=== PATIENT | female | born 1980 | race Caucasian/White ===

== ENCOUNTER 2020-06-21 07:22 | Outpatient (CLI) | payer BC, SELFPAY ==
--- NOTE | 2020-06-21 07:34 | NM_ITS ---
WS: [id number] NUCLEAR MEDICINE HIDA SCAN CLINICAL INFORMATION: RUQ ABDOMINAL PAIN TECHNIQUE: Following intravenous administration of 7.8 mCi of technetium 99m mebrofenin, images of th e abdomen were obtained over the course of 60 minutes. Next, gallbladder ejection fraction was determ ined by obtaining preprandial and one-hour postprandial images of the gallbladder following oral jose stion of Ensure. COMPARISON: Ultrasound gallbladder April 12, 2020 FINDINGS: Normal hepatic uptake at 5 minutes. Gallbladder is visualized by 10 minutes. Normal common bile duct. No evidence of acute cholecystitis. Common bile duct visualized by 10 minutes. Normal small bowel ac tivity. No evidence of choledocholithiasis. Gallbladder ejection fraction 72% within normal limits. No evidence of chronic cholecystitis. NM/NM hepatobiliary w phar* [id number] IMPRESSION: 1. No evidence of acute or chronic cholecystitis. 2. Gallbladder ejection fraction 72% within normal limits.
== END 2020-06-21 07:23 | disposition home or self-care (01) ==
LOC: NM 07:22
PROVIDERS: PCP Family Medicine; Visit Provider Family Medicine
DX: R10.11 Right upper quadrant pain (principal)
CPT/HCPCS: 78227; A9537

== ENCOUNTER 2021-01-23 08:41 | Outpatient (CLI) | payer BC, SELFPAY ==
--- NOTE | 2021-01-23 08:52 | MM_ITS ---
WS: [id number] BILATERAL DIGITAL DIAGNOSTIC MAMMOGRAM MAMMOGRAPHY WITH CAD CLINICAL INFORMATION: RIGHT BREAST LUMP COMPARISON: TECHNIQUE: Bilateral CC, MLO, and ML views. FINDINGS: Scattered fibroglandular densities bilaterally. Marker right breast. No underlying mammographic abnor malities. Ultrasound is pending. Left breast is unremarkable and unchanged. ULTRASOUND BREAST RIGHT TECHNIQUE: Ultrasound right breast focused area of concern. CLINICAL INFORMATION: RIGHT BREAST LUMP COMPARISON: None. FINDINGS: Ultrasound right breast at the 1:00 position patient directed area. No evidence of underlying mass or lesion. Normal underlying parenchymal tissue. No suspicious findings. No lesions to target for biops y. MM/[place] [id number] IMPRESSION: BI-RADS: 2-Benign FOLLOW UP: 1 Year Follow-up Recommend return to annual screening mammography.
== END 2021-01-23 08:42 | disposition home or self-care (01) ==
LOC: RADSHAW 08:44
PROVIDERS: PCP Family Medicine; Visit Provider Family Medicine
DX: N63.12 Unspecified lump in the right breast, upper inner quadrant (principal)
CPT/HCPCS: 76642; 77066

== ENCOUNTER 2021-05-06 15:33 | Emergency (ER) | payer BC, SELFPAY ==
[2021-05-06 16:13] VITALS: BMI 36.4
--- NOTE | 2021-05-06 16:16 | ED_ITS ---
Documented by User: Linda Villarreal 05/06/21 17:08 HPI - Extremity Problem General: Chief complaint: Extremity Injury, Lower Stated complaint: R. KNEE INJURY Time Seen by Provider: 05/06/21 16:02 Source: patient Mode of arrival: ambulatory Limitations: no limitations History of Present Illness: HPI Narrative: right knee pain pt states s kid fell on her and she heard a pop. pt states she can not walk with out pain. pt denies any injury or trauma Associated symptoms: Deny chest pain, fever(s) or rash Review of Systems Const: Denies: fever(s), chills, body aches, change in appetite, change in weight, fatigue, malaise or diaphoresis Eyes: Denies: change in vision, blurry vision, blind spots, photophobia, eye discomfort, eye discharge, eye redness, floaters or seeing flashes ENMT: Denies: throat pain, uvular edema, enlarged tonsils, odynophagia, hoarseness, mouth pain, swelling of lips/tongue, oral sores, bleeding gums, dental pain, dry mouth, ear or mastoid pain, ear discharge, change in hearing, tinnitus, disequilibrium, nasal discharge, nasal congestion, post nasal drip or sinus pain Card: Denies: chest pain, palpitations, irregular heart rhythm, edema, swelling of feet/ankles, lightheadedness, syncope, pre-syncope, dyspnea on exertion, orthopnea, leg pain with exertion or acrocyanosis Resp: Denies: dyspnea, productive cough, non-productive cough, wheezing, stridor, pain on inspiration, change in phlegm color, hemoptysis or chest congestion GI: Denies: abdominal pain, nausea, vomiting, hematemesis, dysphagia, diarrhea, constipation, GI cramping, change in bowel habits or rectal pain : Denies: flank pain, difficulty voiding, dysuria, urinary frequency, urinary urgency, urinary hesitancy or hematuria Musc: Reports: extremity pain; Denies: neck pain, back pain, extremity swelling, joint pain, joint swelling, joint redness, joint warmth or deformity Skin/Breast: Denies: rash, pruritus, erythema, sores, new lesions, changes in skin color or dry skin Neuro: Denies: headache(s), numbness in extremities, weakness in extremities, sensory changes, lack of coordination, difficulty walking, frequent falls, dizziness, vertigo, confusion, behavioral changes, Slurred speech present, difficulty communicating thoughts or seizure-like activity Psych: Denies: anxiety, depression, suicidal ideation or homicidal ideation Endo: Denies: polyuria, polydipsia, tired all the time, cold intolerance, excessive sweating, flushing, hot flashes or heat intolerance Alec/Lymph: Denies: easy bruising, easy bleeding, petechiae, purpura, enlarged lymph nodes or tender lymph nodes All/Imm: Denies: urticaria, throat swelling, tongue swelling, facial swelling, acute wheezing or itchy eyes Physical Exam Const: COMMON NORMALS: no acute distress, average body habitus, patient oriented x3, no limitations, healthy appearing, alert and well nourished HENMT: THROAT: no uvular edema : COMMON NORMALS: Yes no CVA tenderness BLADDER/KIDNEY EXAM: Yes no CVA tenderness Back/Pelvis: COMMON NORMALS: no CVA tenderness, thoracic and lumbar spine normal to inspection, no thoracic nor lumbar tenderness, thoraco-lumbar ROM normal and straight leg raise negative bilaterally Extremity: RIGHT LOWER EXTREMITY: Yes knee joint Neuro: COMMON NORMALS: patient oriented x3 SENSORIUM/ORIENTATION: Yes alert Course Vital Signs: Vital signs: Vital Signs Temperature 98.4 F 05/06/21 16:27 Pulse Rate 98 05/06/21 16:27 Respiratory Rate 18 05/06/21 16:27 Blood Pressure 140/103 05/06/21 16:27 Pulse Oximetry 96 05/06/21 16:27 MDM - Extremity (Nontraumatic) MDM Narrative: Medical decision making narrative: care transition to HILARIO Silva Discharge Plan Discharge Patient Disposition: Home Clinical Impression: Knee pain, right Qualifiers: Chronicity: acute Qualified Code(s): M25.561 - Pain in right knee Condition: Stable Prescriptions: New ibuprofen 800 mg tablet 800 mg PO Q8H PRN (Reason: pain) Qty: 30 RF: 0 Discharge Orders: Discharge ED (Routine); Ordered 05/06/21 Ordered By: Thom Ashby Referrals: Rob Franco MD [Primary Care Provider] - Discharge Diet: Regular Discharge Activity: Increase activity as tolerated Patient Instructions: Knee Pain (ED) Activity Restrictions/Additional Instructions: Follow-up with medical provider as directed in about 5 to 7 days. Use crutches for the first 2 to 3 days and limit weightbearing then slowly advance as tolerated. Rest ice and elevate right knee. Take medications as prescribed. Return to the ER or your medical provider if condition worsens. Please read and understand discharge instructions. Thank you for choosing [facility] for your healthcare needs today. Please realize this is an emergency room and that we are providing you with a medical screening exam and this may not be complete and all inclusive of all the testing and or work up that you may need to determine your ailment or severity of your illness. It is very important that you follow up as instructed or that you return to the Emergency Department should you have concerns or if your condition changes or worsens in any way. Sign Out Sign Out Data: Patient Sign Out occurred on 05/06/21 at 17:11. Patient's care was discussed, and care was transferred from to HILARIO Silva. Coding Level of Care Code ED Spanish Instructor for Chg Fwd Exam Expanded Problem Focused Documented by User: HILARIO Silva 05/06/21 19:07 HPI - Extremity Problem General: Chief complaint: Extremity Injury, Lower Stated complaint: R. KNEE INJURY Time Seen by Provider: 05/06/21 16:02 Course Vital Signs: Vital signs: Vital Signs Temperature 98.4 F 05/06/21 16:27 Pulse Rate 98 05/06/21 16:27 Respiratory Rate 18 05/06/21 16:27 Blood Pressure 140/103 05/06/21 16:27 Pulse Oximetry 96 05/06/21 16:27 MDM - Extremity (Nontraumatic) MDM Narrative: Medical decision making narrative: Patient is a 40-year-old female who comes to the ED with right knee injury. Exam shows some mild swelling of the right knee but no other acute findings. X-ray of right knee showed no acute fractures or findings. Patient was diagnosed with right knee pain and discharged home with crutches and told to rest ice and elevate right leg for the next couple days. She was discharged home with a prescription for ibuprofen 800 mg. She was told to follow-up with her PCP in the next 5 to 7 days for reevaluation. Return to ED precautions given. Patient understood and agreed with plan. Imaging Data^: Xray Ortho: Attestation: I personally reviewed and interpreted this imaging study as follows: My impression: Right knee x-ray?no acute fractures or findings seen. Discharge Plan Discharge Patient Disposition: Home Clinical Impression: Knee pain, right Qualifiers: Chronicity: acute Qualified Code(s): M25.561 - Pain in right knee Condition: Stable Prescriptions: New ibuprofen 800 mg tablet 800 mg PO Q8H PRN (Reason: pain) Qty: 30 RF: 0 Discharge Orders: Discharge ED (Routine); Ordered 05/06/21 Ordered By: Thom Ashby Referrals: Rob Franco MD [Primary Care Provider] - Discharge Diet: Regular Discharge Activity: Increase activity as tolerated Patient Instructions: Knee Pain (ED) Activity Restrictions/Additional Instructions: Follow-up with medical provider as directed in about 5 to 7 days. Use crutches for the first 2 to 3 days and limit weightbearing then slowly advance as tolerated. Rest ice and elevate right knee. Take medications as prescribed. Return to the ER or your medical provider if condition worsens. Please read and understand discharge instructions. Thank you for choosing [facility] for your healthcare needs today. Please realize this is an emergency room and that we are providing you with a medical screening exam and this may not be complete and all inclusive of all the testing and or work up that you may need to determine your ailment or severity of your illness. It is very important that you follow up as instructed or that you return to the Emergency Department should you have concerns or if your condition changes or worsens in any way. Sign Out Sign Out Data: Patient Sign Out occurred on 05/06/21 at 17:11. Patient's care was discussed, and care was transferred from to HILARIO Silva. Coding Level of Care Code ED Spanish Instructor for Bhanu Fwmatt Exam Expanded Problem Focused
[2021-05-06 16:27] VITALS: BP 140/103; PULSE 98; RESP 18; TEMP 36.9; O2SAT 96
--- NOTE | 2021-05-06 16:37 | XRR_ITS ---
PROCEDURE INFORMATION: Exam: XR Right Knee Exam date and time: 05/06/2021 4:37 PM Age: 40 years old Clinical indication: Injury or trauma; Fall; Blunt trauma; Injury details: Right knee pain PT states s kid fell on her and she heard a pop. TECHNIQUE: Imaging protocol: XR Right knee. Views: 3 views. COMPARISON: US ROR venous duplex LE RT 07/31/2015 1:21 PM FINDINGS: Bones/joints: Normal. Soft tissues: Normal. XR/XR knee RT 3V* [id number] IMPRESSION: Negative for fracture or dislocation
[2021-05-06] MEDS: ketorolac 60 mg/2 mL INJ IM (17:22)
== END 2021-05-06 18:25 | disposition home or self-care (01) ==
PROVIDERS: Emergency Provider Physician Assistant; PCP Family Medicine
DX: M25.561 Pain in right knee (principal)
CPT/HCPCS: 73562; 96372; 99283; E0114; J1885

== ENCOUNTER 2021-05-21 08:13 | Outpatient (CLI) | payer BC, SELFPAY ==
--- NOTE | 2021-05-21 08:45 | MR_ITS ---
WS: [id number] MRI RIGHT KNEE NONCONTRAST TECHNIQUE: Axial PD, coronal PD fat sat, coronal PD, sagittal PD, and sagittal PD fat-sat images obta ined. CLINICAL INFORMATION: R KNEE INJURY WITH SEVERE PAIN COMPARISON: None. FINDINGS: Distal quadriceps and patella tendons are intact. Hypertrophic patella. Small suprapatellar effusion. High-grade tear of the ACL with no normal fibers visualized. Normal PCL. Diffuse soft tissue edema. Edema in Hoffa's fat pad. Complex bucket-handle tear involving the posterior horn lateral meniscus ex tending to the articular surface. Irregularity and compression of the anterior horn lateral meniscus. Meniscal fragment displaced into the intercondylar notch. Chronic thinning of the medial meniscus. N o acute appearing medial meniscal tears. Normal femoral condyles. Small amount of edema in the posterior medial and posterior lateral tibial p lateau. Tiny amount of edema in the anterolateral femoral condyle. Medial collateral ligament appears intact with small amount of edema and fluid along the superficial fibers consistent with grade one injury. Lateral collateral ligament is intact. Mild chondromalacia patella. Medial and lateral patellar retinaculum appear intact. No subchondral ed thomas. MR/MR knee RT wo con* [id number] IMPRESSION: 1. High-grade tear of the ACL with no normal fibers visualized. 2. Complex bucket handle tear involving the posterior horn lateral meniscus wi th compression and irregularity of the anterior meniscus. Flipped meniscal frag ment extending into the intercondylar notch best seen on the coronal imaging. 3. Grade 1 injury MCL. LCL appears intact. 4. Small suprapatellar effusion with soft tissue edema about the knee. 5. Mild chondromalacia patella. 6. Small amount of contusion involving the anterior lateral femoral condyle an d posterior lateral tibial plateau. Outbridge grading: grade II: blister-like swelling/fraying of articular cartila ge extending to surface
== END 2021-05-21 08:14 | disposition home or self-care (01) ==
PROVIDERS: PCP Family Medicine; Visit Provider Family Medicine
DX: S89.91XA Unspecified injury of right lower leg, initial encounter (principal); S80.01XA Contusion of right knee, initial encounter; M22.41 Chondromalacia patellae, right knee; M25.461 Effusion, right knee; R60.0 Localized edema; S83.251A Bucket-handle tear of lateral meniscus, current injury, right knee, initial encounter; S83.271A Complex tear of lateral meniscus, current injury, right knee, initial encounter; S83.511A Sprain of anterior cruciate ligament of right knee, initial encounter; X58.XXXA Exposure to other specified factors, initial encounter
CPT/HCPCS: 73721

== ENCOUNTER 2023-02-27 13:58 | Emergency (ER) | payer BC, SELFPAY ==
[2023-02-27 14:04] VITALS: BP 173/138; PULSE 135; RESP 26; TEMP 36.6; O2SAT 100; BMI 35.1
--- NOTE | 2023-02-27 14:09 | ECG_ITS ---
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 Measurements Intervals Superior Rate: 135 P: 131 TX: 148 QRS: 39 QRSD: 98 T: 8 QT: 283 QTc: 425 Interpretive Statements SINUS TACHYCARDIA ABNORMAL RHYTHM ECG No previous ECG available for comparison Electronically Signed On 02-27-2023 23:03:49 CDT by Chip Webb M.D. [id number] f
--- NOTE | 2023-02-27 14:35 | XR_ITS ---
WS: [id number] Portable AP upright chest, 02/27/2023 Clinical Data: chest pain Comparison: Two-view chest, 12/30/2021 Findings: No nodules, masses or effusions are seen. The heart is normal. The pulmonary vascularity is not increased. No pneumonia or pneumothorax is seen. There are monitor leads on the chest wall. XR/XR chest 1V portable [id number] Impression: Negative chest.
--- NOTE | 2023-02-27 14:54 | W.ED.CHESTPA ---
HPI - Chest Pain General: Chief Complaint: Chest Pain Stated Complaint: Chest Pain, High BP, Arm numbness Time Seen by Provider: 02/27/23 14:35 History of Present Illness: 42-year-old female presents emergency department chief complaint of ongoing chest pain midsternal region radiation to the back and to the left shoulder started this prior to arrival patient reports having a prior history of some past but does not recall any known cardiac history reports she recent saw her doctor in the office in which she has been dealing with high blood pressure which her blood pressure was found to be elevated prior to arrival. Patient reports she was started on a new medication for blood pressure her reports not helping her blood pressure reports current blood pressures at home was 150s over 80s patient does not endorse any recent palpitations or headache. Patient reports she did take her blood pressure medication prescribed patient reports she has not tried to take anything for her chest pain reports his pressure. Patient also reports a feeling of nauseousness and wanting to vomit with generalized epigastric abdominal pain with no other associate symptoms. Patient does endorse having an increased amount of stress in her life recently does not endorse any additional caffeine or nicotine usage. Patient also does not report any known history of recent dietary changes or any other associated symptoms. Associated symptoms: Reports abdominal pain; Deny dyspnea, fever(s), nausea or vomiting Review of Systems General: Reports: 10 or more systems reviewed and unremarkable except in HPI and below Const: Denies: fever(s), chills, fatigue or malaise Eyes: Denies: change in vision or blurry vision Card: Reports: chest pain Resp: Denies: dyspnea or productive cough GI: Reports: abdominal pain; Denies: nausea or vomiting : Denies: flank pain Musc: Denies: extremity pain or extremity swelling Skin/Breast: Denies: rash or pruritus Neuro: Denies: headache(s) Psych: Denies: anxiety or depression Alec/Lymph: Denies: easy bleeding All/Imm: Denies: urticaria, throat swelling or facial swelling Physical Exam Narrative: EXAM NARRATIVE: Patient appears uncomfortable exam however appears nontoxic appears in no obvious acute distress Const: COMMON NORMALS: no acute distress, patient oriented x3 and healthy appearing HENMT: COMMON NORMALS: normocephalic and atraumatic HEAD & SCALP: normocephalic and atraumatic Eye: COMMON NORMALS: Equal, round and reactive pupils present and EOMs intact bilaterally PUPIL: Yes Equal, round and reactive pupils present Neck/C-Spine: COMMON NORMALS: full ROM, supple and no JVD Lymph: LYMPHATIC: no lymphadenopathy noted Chest: COMMONS NORMALS: normal inspection of the chest and normal palpation of entire chest wall Resp: COMMON NORMALS: normal respiratory effort, No retractions and clear to auscultation bilaterally EFFORT & INSPECTION: Yes able to speak in complete sentences and Yes symmetric chest movement AUSCULTATION: clear to auscultation bilaterally OTHER: Reproducible pain noted to the midsternal region no obvious step-offs crepitus or ecchymosis noted equal breath sounds appreciated bilaterally with no obvious murmurs or bruits appreciated Cardio: COMMON NORMALS: no JVD, regular rate and regular rhythm RATE: regular rate RHYTHM: regular rhythm GI: COMMON NORMALS: Normal to inspection, nondistended, normoactive bowel sounds present, Soft to palpation and non-tender INSPECTION: Yes normal to inspection PALPATION: Yes Soft to palpation : COMMON NORMALS: Yes no CVA tenderness BLADDER/KIDNEY EXAM: Yes no CVA tenderness Back/Pelvis: COMMON NORMALS: no CVA tenderness Extremity: COMMON NORMALS: normal to inspection and full ROM Neuro: COMMON NORMALS: patient oriented x3, CN's II-XII intact bilaterally, moves all extremities and no focal motor deficits Psych: COMMON NORMALS: mental status grossly normal, Normal thought process present, cooperative and normal affect THOUGHT PROCESS: Normal thought process present Skin: COMMON NORMALS: no rashes or lesions noted GENERAL SKIN EXAM: no rashes or lesions noted Course Vital Signs: Vital signs: Vital Signs Temperature 97.8 F 02/27/23 14:04 Pulse Rate 110 H 02/27/23 18:45 Respiratory Rate 16 02/27/23 18:45 Blood Pressure 185/107 02/27/23 18:45 Pulse Oximetry 97 02/27/23 18:45 Oxygen Delivery Me thod Room Air 02/27/23 18:45 MDM - Chest Pain Medical Decision Making Due to the patient's symptoms and condition IV established basic lab work imaging will be obtained we will continue to follow. Patient's lab work and imaging came back reassuring she was found to be sinus tachycardia throughout her time emergency department -2-hour troponin came back patient's chest x-ray and CTA did not reveal any PE patient was found of a small right-sided pulmonary nodule. Patient's chest pain was resolved upon reevaluation 1939 patient will be discharged home on some metoprolol as well as additional medications for her high blood pressure advised that she further follow-up with her primary care doctor in 2 to 3 days which patient was advised to return the interim if any of her symptoms persist or worse. Lab Data 02/27/23 15:26 02/27/23 17:05 Radiology Impressions Chest X-Ray 02/27/23 14:35 Impression: Negative chest. Chest CTA 02/27/23 16:30 IMPRESSION: 1. No acute findings. 2. 3 mm right pulmonary nodule. For patients at low risk (minimal or absent history of smoking and of other known risk factors), no routine follow-up is indicated. For patients at high risk (history of smoking or of other known risk factors), consider optional CT Chest at 12 months. (Reference: Julia) References: Julia Carrasco, et al. Guidelines for Management of Incidental Pulmonary Nodules Detected on CT Images: From the Fleischner Society 2017. Radiology. 2017;284(1):228-243. Laboratory Results WBC 10.0 10^3/uL (4.0-10.0) 02/27/23 15: RBC 4.63 10^6/uL (4.1-5.3) 02/27/23 15: Hgb 13.8 g/dL (11.5-15.3) 02/27/23 15: Hct 42.0 % (37.0-47.0) 02/27/23 15: MCV 90.7 fl (81-99) 02/27/23 15: MCH 29.8 pg (28.0-34.0) 02/27/23 15: MCHC 32.9 g/dL (30.0-36.0) 02/27/23 15: RDW 12.4 % (12.1-15.1) 02/27/23 15: Plt Count 378 10^3/cmm (130-400) 02/27/23 15: MPV 9.1 fL (7.4-10.4) 02/27/23 15: Neut % (Auto) 69.0 % 02/27/23 15:26 Lymph % (Auto) 24.1 % 02/27/23 15:26 [place] % (Auto) 5.5 % 02/27/23 15: Eos % (Auto) 0.8 % 02/27/23 15: Baso % (Auto) 0.3 % 02/27/23 15: Neut # (Auto) 6.91 10^3/uL (1.8-7.7) 02/27/23 15: Lymph # (Auto) 2.4 10^3/uL (0.8-4.8) 02/27/23 15: [place] # (Auto) 0.6 10^3/uL (0.2-0.9) 02/27/23 15: Eos # (Auto) 0.1 10^3/uL (0.0-0.8) 02/27/23: Baso # (Auto) 0.0 10^3/uL (0.0-0.1) 02/27/23 15: Nucleated RBC % (auto) 0 % 02/27/23 15: Nucleated RBCs # 0.0 /100WBC 02/27/23 15:26 Sodium 141 mmol/L (136-145) 02/27/23 17:05 Potassium 3.8 mmol/L (3.5-5.1) 02/27/23 17:05 Chloride 104 mmol/L (98-107) 02/27/23 17:05 Carbon Dioxide 21 mmol/L (22-29) L 02/27/23 17:05 Anion Gap 19.8 (5-19) H 02/27/23 17:05 BUN 15 mg/dL (6-20) 02/27/23 17:05 Creatinine 0.7 mg/dL (0.5-0.9) 02/27/23 17:05 GFR Calculation 92.7 mL/min (90-130) 02/27/23 17:05 Glucose 100 mg/dL (65-115) 02/27/23 17:05 Calculated Osmolality 293 mOsm/kg (285-295) 02/27/23 17:05 Calcium 8.7 mg/dL (8.5-10.5) 02/27/23 17:05 Total Bilirubin 0.3 mg/dL (0.15-1.2) 02/27/23 17:05 AST 18 U/L (0-32) 02/27/23 17:05 ALT 32 U/L (0-33) 02/27/23 17:05 Alkaline Phosphatase 96 U/L (35-105) 02/27/23 17:05 Troponin T Baseline 6 ng/L (0-10) 02/27/23 15:26 Troponin T 120 Minute 6.00 ng/L (0-10) 02/27/23 17:05 Delta Troponin T 0 ABS# (0-10) 02/27/23 17:05 NT-Pro-B Natriuret Pep 36 pg/mL (0-125) 02/27/23 15:26 Total Protein 6.8 g/dL (6.6-8.7) 02/27/23 17:05 Albumin 4.2 g/dL (3.5-5.2) 02/27/23 17:05 Globulin 2.6 g/dL (1.3-4.6) 02/27/23 17:05 Lipase 17 U/L (13-60) 02/27/23 15:26 Urine Color Light yellow (Yellow) 02/27/23 16:21 Urine Appearance Clear (CLEAR) 02/27/23 16:21 Urine pH 7 (5-7) 02/27/23 16:21 Ur Specific [place] 1.010 (1.005-1.030) 02/27/23 16:21 Urine Protein Neg (Negative) 02/27/23 16:21 Urine Glucose (UA) Norm (Normal) 02/27/23 16:21 Urine Ketones Negative (Negative) 02/27/23 16:21 Urine Blood Neg (Negative) 02/27/23 16:21 Urine Nitrate Negative (Negative) 02/27/23 16:21 Urine Bilirubin Neg (Negative) 02/27/23 16:21 Urine Urobilinogen Neg mg/dL (Negative) 02/27/23 16:21 Ur Leukocyte Esterase Negative (Negative) 02/27/23 16:21 Urine Opiates Screen Negative ng/mL (Negative) 02/27/23 16:21 Ur Barbiturates Screen Negative ng/mL (Negative) 02/27/23 16:21 Ur Phencyclidine Scrn Negative ng/mL (Negative) 02/27/23 16:21 Ur Amphetamines Screen Negative ng/mL (Negative) 02/27/23 16:21 U Benzodiazepines Scrn Negative ng/mL (Negative) 02/27/23 16:21 Urine Cocaine Screen Negative ng/mL (Negative) 02/27/23 16:21 U Marijuana (THC) Screen Negative ng/mL (Negative) 02/27/23 16:21 Discharge Plan Discharge Patient Disposition: Home Clinical Impression: Sinus tachycardia, Chest pain, Hypertension Condition: Stable Prescriptions: New Toprol XL 100 mg tablet extended release 24 hr 100 mg PO BID Qty: 20 0RF clonidine HCl 0.1 mg tablet 0.1 mg PO Q6H PRN (Reason: hypertensive emergency) Qty: 14 0RF No Action venlafaxine 150 mg capsule,extended release 24hr 150 mg PO QAM valsartan 80 mg tablet 80 mg PO QAM lithium carbonate 300 mg capsule 300 mg PO BID PRN (Reason: unknown) pantoprazole 40 mg tablet,delayed release (DR/EC) 40 mg PO BID metoprolol tartrate 50 mg tablet 50 mg PO BID Rx Instructions: (not started as of 02/25/25) (pt states replaces valsartan) Discharge Orders: Discharge ED (Routine); Ordered 02/27/23 Ordered By: Massimo Vazquez Referrals: Rob Franco MD [Primary Care Provider] - 1-3 days Discharge Diet: Cardiac and Low Salt Discharge Activity: Increase activity as tolerated Patient Instructions: Hypertension (ED), Tachycardia (ED) Activity Restrictions/Additional Instructions: Please further follow-up your primary care doctor in 2 to 3 days please take your medications as prescribed please discontinue your metoprolol tartrate 50 mg tablets to be taken now 100 mg tablets twice daily. Please return the interim if any of your symptoms persist or worse. Coding Level of Care Code ED Body Trimmer for Bhanu Keyes
--- NOTE | 2023-02-27 14:58 | PC.PHAR ---
pt states she takes care of her own medications-pt states she hasnt started metoprolol tartrate 50mg bid (filled 02/25/23 30d/s) as of 02/25/25- pt states the metoprolol tartrate replaces valsartan but states she took the valsartan today-pt states she only takes lithium carbonate 300mg bid prn ext med history shows last filled 01/20/23 30d/s 300mg bid-notes are made in the pharmacy comments
[2023-02-27 15:05] VITALS: BP 155/91; PULSE 116; RESP 15; O2SAT 99
[2023-02-27] MEDS: ondansetron 2 mg/ML SDV 2 mL 4 MG IVP (15:19)
[2023-02-27] MEDS: pantoprazole 40 mg SDV IVP (15:19)
[2023-02-27] MEDS: aspirin 81 mg Chew Tablet 324 MG PO (15:20)
[2023-02-27] MEDS: sodium chloride 0.9% 1,000 ML 999 ML IV (15:20)
[2023-02-27 15:22] VITALS: BP 155/91; PULSE 112; RESP 14; O2SAT 96
[2023-02-27 15:37] LABS: Basophils % 0.3 %; Eosinophils # 0.1 10^3/uL (0.0-0.8); Eosinophils % 0.8 %; Hemoglobin 13.8 g/dL (11.5-15.3); Lymphocytes # 2.4 10^3/uL (0.8-4.8); Lymphocytes % 24.1 %; Mean Corpuscular HGB Conc 32.9 g/dL (30.0-36.0); Mean Corpuscular Hemoglobin 29.8 pg (28.0-34.0); Mean Corpuscular Volume 90.7 fl (81-99); Mean Platelet Volume 9.1 fL (7.4-10.4); Monocytes # 0.6 10^3/uL (0.2-0.9); Monocytes % 5.5 %; Neutrophils # 6.91 10^3/uL (1.8-7.7); Nucleated Red Blood Cells % 0 %; Platelet Count 378 10^3/cmm (130-400); Red Blood Count 4.63 10^6/uL (4.1-5.3); Red Cell Distribution Width 12.4 % (12.1-15.1)
[2023-02-27 15:58] LABS: Troponin(5th) Baseline 6 ng/L (0-10)
[2023-02-27 16:25] LABS: Lipase 17 U/L (13-60); NT Pro B Type Natriuretic Pept 36 pg/mL (0-125)
--- NOTE | 2023-02-27 16:30 | CTR_ITS ---
PROCEDURE INFORMATION: Exam: CTA Chest With Contrast Exam date and time: 02/27/2023 6:01 PM Age: 42 years old Clinical indication: Chest wall pain; Additional info: Pleuritic chest pain TECHNIQUE: Imaging protocol: Computed tomographic angiography of the chest with contrast. 3D rendering (Not supervised by radiologist): MIP and/or 3D reconstructed images were created by the technologist. Radiation optimization: All CT scans at this facility use at least one of these dose optimization techniques: automated exposure control; mA and/or kV adjustment per patient size (includes targeted exams where dose is matched to clinical indication); or iterative reconstruction. Contrast material: OMNI 350; Contrast volume: 100 ml; Contrast route: INTRAVENOUS (IV); REPORTING DATA: Count of CT and Cardiac NM exams in prior 12 months: This patient has received 0 known CTs and 0 known cardiac nuclear medicine studies in the 12 months prior to the current study. COMPARISON: CR XR chest 1V portable [id number] 02/27/2023 2:47 PM RADIATION DOSE METRICS: Total DLP (mGy-cm): 400.44 FINDINGS: Pulmonary arteries: Normal. No pulmonary emboli. Aorta: Unremarkable. No aortic aneurysm. No aortic dissection. Lungs: 3 mm right middle lobe nodule. Mild atelectasis and mosaic attenuation in the lower lobes, consistent with mild air trapping. The lungs are otherwise clear. Pleural spaces: Unremarkable. No pneumothorax. No pleural effusion. Heart: Unremarkable. No cardiomegaly. No pericardial effusion. Lymph nodes: Unremarkable. No enlarged lymph nodes. Bones/joints: Mild curvature and mild degenerative changes of the thoracic spine. No acute fracture. Old left rib fracture. Soft tissues: Unremarkable. CT/CT angio chest PE formerly [facility] [id number] IMPRESSION: 1. No acute findings. 2. 3 mm right pulmonary nodule. For patients at low risk (minimal or absent history of smoking and of other known risk factors), no routine follow-up is indicated. For patients at high risk (history of smoking or of other known risk factors), consider optional CT Chest at 12 months. (Reference: Julia) References: Julia Carrasco et al. Guidelines for Management of Incidental Pulmonary Nodules Detected on CT Images: From the Fleischner Society 2017. Radiology. 2017;284(1):228-243.
[2023-02-27 16:31] VITALS: BP 180/119; PULSE 134; RESP 16; O2SAT 100
[2023-02-27] MEDS: nitroglycerin 0.4 mg sublingual Tablet SUBLINGUAL (16:32)
--- NOTE | 2023-02-27 16:35 | ECG_ITS ---
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 Measurements Intervals [place] Rate: 136 P: 76 OK: 165 QRS: 72 QRSD: 101 T: 61 QT: 363 QTc: 547 Interpretive Statements SINUS TACHYCARDIA LOW QRS VOLTAGE IN PRECORDIAL LEADS [QRS DEFLECTION < 1.0 mV IN CHEST LEADS] NONSPECIFIC T-WAVE ABNORMALITY ABNORMAL RHYTHM ECG Compared to ECG 02/27/2023 14:09:29 Low QRS voltage now present T-wave abnormality now present Electronically Signed On 02-27-2023 23:05:53 CDT by Chip Webb M.D. [id number]
[2023-02-27 16:40] LABS: Add Urine Microscopic? NO; Charge for UA Resulting for Rev
[2023-02-27 16:42] LABS: Bilirubin Urine Neg (Negative); Blood Urine Neg (Negative); Glucose Urine UA Norm (Normal); Ketones Urine Negative (Negative); Leukocyte Esterase Urine Negative (Negative); Nitrate Urine Negative (Negative); Protein Urine Neg (Negative); Urine Appearance Clear (CLEAR); Urine Color Light yellow (Yellow); Urobilinogen Urine Neg (Negative); pH Urine 7 (5-7)
[2023-02-27 17:12] LABS: Amphetamines Screen Urine Negative (Negative); Barbiturates Screen Urine Negative (Negative); Benzodiazepines Screen Urine Negative (Negative); Cocaine Screen Urine Negative (Negative); Opiate Screen Urine Negative (Negative); PCP Screen Urine Negative (Negative); THC Screen Urine Negative (Negative)
[2023-02-27] MEDS: labetalol 5 mg/mL SDV 20mL 10 MG IVP (17:41)
[2023-02-27] MEDS: fentaNYL 50 mcg/mL INJ 2mL IVP (17:44)
[2023-02-27] MEDS: lidocaine 2% viscous 15 ML, aluminum-mag hydrox-simethicon 30 ML, sucralfate oral liq 1 GM PO (17:48)
[2023-02-27] MEDS: dexamethasone 10 mg/mL INJ IVP (17:50)
[2023-02-27] MEDS: diphenhydrAMINE 50 mg/mL SDV 1mL 25 MG IVP (17:51)
[2023-02-27 17:55] VITALS: BP 166/106; PULSE 96; RESP 16; O2SAT 97
[2023-02-27] MEDS: iohexol 350 mg/mL 500 mL Btl (per mL) IV (18:00)
[2023-02-27 18:27] LABS: Troponin 5 2HR Delta 0 ABS# (0-10)
[2023-02-27 18:30] LABS: Alanine Aminotransferase 32 U/L (0-33); Albumin Level 4.2 g/dL (3.5-5.2); Alkaline Phosphatase 96 U/L (35-105); Anion Gap 19.8 (5-19); Aspartate Amino Transferase 18 U/L (0-32); Blood Urea Nitrogen 15 mg/dL (6-20); Calcium 8.7 mg/dL (8.5-10.5); Carbon Dioxide 21 mmol/L (22-29); Chloride 104 mmol/L (98-107); Globulin 2.6 g/dL (1.3-4.6); Glomerular Filtration Rate 92.7 mL/min (90-130); Glucose 100 mg/dL (65-115); Osmolality Calculated 293 mOsm/kg (285-295); Potassium 3.8 mmol/L (3.5-5.1); Sodium 141 mmol/L (136-145); Total Bilirubin 0.3 mg/dL (0.15-1.2); Total Protein 6.8 g/dL (6.6-8.7)
[2023-02-27 18:45] VITALS: BP 185/107; PULSE 110; RESP 16; O2SAT 97
[2023-02-27] MEDS: hyDRALAzine 20 mg/mL INJ 1 mL 10 MG IVP (19:06)
[2023-02-27] MEDS: LORazepam 2 mg/mL INJ 1 mL 1 MG IVP (19:09)
== END 2023-02-27 20:22 | disposition home or self-care (01) ==
PROVIDERS: Emergency Provider Emergency Medicine; PCP Family Medicine
DX: R00.0 Tachycardia, unspecified (principal); R07.9 Chest pain, unspecified; I10 Essential (primary) hypertension
CPT/HCPCS: 36415; 71045; 71275; 80053; 80306; 81003; 83690; 83880; 84484; 85025; 93005; 96361; 96374; 96375; 99285; C9113; J0360; J1100; J1200; J2060; J2405; J3010; J3490; J7030; Q9967

== ENCOUNTER 2023-03-01 14:11 | Inpatient (IN) | payer BC, SELFPAY ==
[2023-03-01] VITALS (56 sets, daily range): BP systolic 103–189; BP diastolic 72–121; PULSE 62–107; RESP 12–30; TEMP 36.6–36.9; O2SAT 94–99; BMI 35.7; BMI 33.3
--- NOTE | 2023-03-01 14:23 | CTR_ITS ---
PROCEDURE INFORMATION: Exam: CTA Head Without And With Contrast, Arteriography Exam date and time: 03/01/2023 2:10 PM Age: 42 years old Clinical indication: Stroke-like symptoms; Drowsines/somnolence and headache and speech disturbance and visual disturbance; Additional info: Stroke like symptoms TECHNIQUE: Imaging protocol: Computed tomographic angiography of the head without and with contrast. Exam focused on the arteries. 3D rendering (Not supervised by radiologist): MIP and/or 3D reconstructed images were created by the technologist. Radiation optimization: All CT scans at this facility use at least one of these dose optimization techniques: automated exposure control; mA and/or kV adjustment per patient size (includes targeted exams where dose is matched to clinical indication); or iterative reconstruction. Contrast material: OMNI 350; Contrast volume: 100 ml; Contrast route: INTRAVENOUS (IV); Other technique: STROKE PROTOCOL was implemented. REPORTING DATA: Count of CT and Cardiac NM exams in prior 12 months: This patient has received [address] and 0 known cardiac nuclear medicine studies in the 12 months prior to the current study. COMPARISON: No relevant prior studies available. RADIATION DOSE METRICS: Total DLP (mGy-cm): 1046.23 FINDINGS: ANTERIOR CIRCULATION: Right internal carotid artery: Intracranial segment is patent with no significant stenosis or occlusion. No aneurysm. Right middle cerebral artery: No occlusion or significant stenosis. No aneurysm. Right anterior cerebral artery: No occlusion or significant stenosis. No aneurysm. Left internal carotid artery: Intracranial segment is patent with no significant stenosis. No aneurysm. Left middle cerebral artery: No occlusion or significant stenosis. No aneurysm. Left anterior cerebral artery: No occlusion or significant stenosis. No aneurysm. POSTERIOR CIRCULATION: Right vertebral artery: No occlusion or significant stenosis. No aneurysm. Left vertebral artery: No occlusion or significant stenosis. No aneurysm. Basilar artery: No occlusion or significant stenosis. No aneurysm. Right posterior cerebral artery: No occlusion or significant stenosis. No aneurysm. Left posterior cerebral artery: origin of the left posterior cerebral artery. No occlusion or aneurysm. Veins: Dural venous sinuses are patent. The left transverse sinus is hypoplastic. HEAD: Brain: The brain is unremarkable. There is no mass effect or significant white matter disease. There is no acute intracranial hemorrhage. Cerebral ventricles: There is no significant ventricular dilation. The basal cisterns are unremarkable. Bones/joints: The calvarium is intact. Paranasal sinuses: The paranasal sinuses are clear. Mastoid air cells: The mastoid air cells are clear. Soft tissues: The visible extracranial soft tissues are unremarkable. PROCEDURE INFORMATION: Exam: CTA Neck With Contrast Exam date and time: 03/01/2023 2:10 PM Age: 42 years old Clinical indication: Stroke-like symptoms; Drowsines/somnolence and headache and speech disturbance and visual disturbance; Additional info: Stroke like symptoms TECHNIQUE: Imaging protocol: Computed tomographic angiography of the neck with contrast. 3D rendering (Not supervised by radiologist): MIP and/or 3D reconstructed images were created by the technologist. Radiation optimization: All CT scans at this facility use at least one of these dose optimization techniques: automated exposure control; mA and/or kV adjustment per patient size (includes targeted exams where dose is matched to clinical indication); or iterative reconstruction. Contrast material: OMNI 350; Contrast volume: 100 ml; Contrast route: INTRAVENOUS (IV); REPORTING DATA: Count of CT and Cardiac NM exams in prior 12 months: This patient has received [address] and 0 known cardiac nuclear medicine studies in the 12 months prior to the current study. COMPARISON: CT angio chest PE protcl [id number] 02/27/2023 6:01 PM RADIATION DOSE METRICS: Total DLP (mGy-cm): 1046.23 FINDINGS: Right common carotid artery: No stenosis. No dissection or occlusion. Right internal carotid artery: No stenosis of the extracranial segment. No dissection or occlusion. Right external carotid artery: No occlusion or stenosis of the origin. Left common carotid artery: No stenosis. No dissection or occlusion. Left internal carotid artery: No stenosis of the extracranial segment. No dissection or occlusion. Left external carotid artery: No occlusion or stenosis of the origin. Right vertebral artery: No stenosis. No dissection or occlusion. Left vertebral artery: No stenosis. No dissection or occlusion. Soft tissues: Soft tissues in the neck and thoracic inlet are unremarkable. Bones/joints: There is mild degenerative disc disease in the cervical spine. Lungs: Lung apices are clear. CT/CT angio headneck* [id number] IMPRESSION: 1. No acute intracranial abnormality. 2. No arterial stenosis, occlusion or aneurysm. ASSESSMENT: ASPECTS ([place] Stroke Program Early CT Score) is 10. IMPRESSION: No arterial stenosis, occlusion or dissection. REFERENCES: NASCET CRITERIA. The degree of stenosis in the cervical segment of the internal carotid artery is based on NASCET criteria. Normal is no stenosis. Mild is less than 50% stenosis. Moderate is 50-69% stenosis. Severe is 70% to 99% stenosis. Total occlusion is no detectable patent lumen.
[2023-03-01] MEDS: labetalol 5 mg/mL SDV 20mL 10 MG IVP ×2 (14:34→20:24)
--- NOTE | 2023-03-01 14:47 | ECG_ITS ---
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 Measurements Intervals [place] Rate: 116 P: 30 UT: 154 QRS: 30 QRSD: 95 T: 29 QT: 309 QTc: 431 Interpretive Statements SINUS TACHYCARDIA LOW QRS VOLTAGE IN PRECORDIAL LEADS [QRS DEFLECTION < 1.0 mV IN CHEST LEADS] ABNORMAL RHYTHM ECG INTERPRETATION BASED ON A DEFAULT AGE OF 42 YEARS Compared to ECG 02/27/2023 16:30:34 T-wave abnormality no longer present Electronically Signed On 03-02-2023 17:06:01 CDT by Jean Musa M.D. [id number]
--- NOTE | 2023-03-01 14:49 | W.ED.NEUROSD ---
HPI - Neuro Symptoms/Deficit General: Chief Complaint: Neuro Symptoms/Deficit Stated Complaint: STROKE LIKE SYMPTOMS Time Seen by Provider: 03/01/23 14:13 History of Present Illness: Patient brought in by EMS with right-sided neurodeficits. Approximately 1/2 hour ago patient developed sudden onset right upper and lower extremity weakness right facial droop and slurring of her speech. Patient also has a headache. Patient has never had any of these symptoms before other than a headache. Patient does have high blood pressure. Onset (ago): hour(s) (30 minutes) Timing confirmed by: family member Location: speech, right face, dysarthria, right arm and right leg History of same: No Severity: moderate Quality: weak Relieving factors: none Exacerbating factors: none Context: sudden onset On Anticoagulants: No Associated symptoms: Reports headache(s) Treatments Prior to Arrival: other (4 mg Zofran per EMS) Review of Systems General: Reports: ROS unobtainable due to medical condition Neuro: Reports: headache(s) NIH stroke score NIHSS: Facial Palsy - 4: Partial Paralysis Motor Arm Right - 5: Drift Motor Leg Right - 6: Effort Against [place] Best Language - 9: Mild/Moderate Aphasia Dysarthia - 10: Mild/Moderate Dysarthia Physical Exam Const: COMMON NORMALS: average body habitus, patient oriented x3, alert and well nourished HENMT: COMMON NORMALS: normocephalic, atraumatic, hearing grossly normal bilaterally, external ears normal, Normal external nose present and moist oral mucous membranes HEAD & SCALP: normocephalic and atraumatic NOSE: Normal external nose present EXTERNAL EAR: Yes external ears normal Eye: COMMON NORMALS: Equal, round and reactive pupils present, EOMs intact bilaterally, conjunctivae normal and no scleral icterus CONJUNCTIVA: Yes conjunctivae normal PUPIL: Yes Equal, round and reactive pupils present Neck/C-Spine: COMMON NORMALS: full ROM, no lymphadenopathy, supple, no meningeal signs, no JVD and Thyroid normal THYROID: Thyroid normal Lymph: LYMPHATIC: no lymphadenopathy noted Resp: COMMON NORMALS: normal respiratory effort, No retractions, No use of accessory muscles and clear to auscultation bilaterally AUSCULTATION: clear to auscultation bilaterally Cardio: COMMON NORMALS: no JVD, regular rate, regular rhythm, S1 normal heart sound present and S2 normal heart sound present RATE: regular rate RHYTHM: regular rhythm HEART SOUNDS: S1 normal heart sound present and S2 normal heart sound present GI: COMMON NORMALS: Normal to inspection, nondistended, normoactive bowel sounds present, Soft to palpation, non-tender, No hepatosplenomegaly present and no masses PALPATION: Yes Soft to palpation and Yes No hepatosplenomegaly present : COMMON NORMALS: Yes no CVA tenderness BLADDER/KIDNEY EXAM: Yes no CVA tenderness Back/Pelvis: COMMON NORMALS: no CVA tenderness Neuro: COMMON NORMALS: patient oriented x3 SENSORIUM/ORIENTATION: Yes alert MENINGEAL SIGNS: Yes no meningeal signs OTHER: Neuro exam revealed right facial palsy facial droop, dysarthria, right upper extremity and right lower extremity weakness to gravity. Course Vital Signs: Vital signs: Vital Signs Pulse Rate 94 03/01/23 16:30 Respiratory Rate 24 H 03/01/23 16:30 Blood Pressure 129/88 03/01/23 16:20 Pulse Oximetry 96 03/01/23 16:30 Oxygen Delivery Me thod Room Air 03/01/23 16:25 MDM - Neuro Symptoms/Deficit Medical Decision Making Dr. Joyce present during part of the exam. Agreed with labetalol and tPA. Patient was brought in by EMS with complaint plaints of sudden onset right-sided facial droop and headache. Patient also able unable to lift her right leg and right arm. Patient was given tPA and labetalol with Dr. Joyce present. Lab work was obtained which showed a white count of 14,000 rest of patient's metabolic panel was essentially abnormal so was her head neck CTA Differential Diagnosis Likely cerebrovascular accident and transient cerebral ischemia; Unlikely carpal tunnel syndrome, convulsions, delirium, subarachnoid hemorrhage, peripheral neuropathy or multiple sclerosis Medical Records I reviewed the patient's medical records. Lab Data I reviewed the patient's lab results. 03/01/23 16:19 03/01/23 16:19 Radiology Impressions Head/Neck CTA 03/01/23 14:23 IMPRESSION: 1. No acute intracranial abnormality. 2. No arterial stenosis, occlusion or aneurysm. ASSESSMENT: ASPECTS ([place] Stroke Program Early CT Score) is 10. IMPRESSION: No arterial stenosis, occlusion or dissection. REFERENCES: NASCET CRITERIA. The degree of stenosis in the cervical segment of the internal carotid artery is based on NASCET criteria. Normal is no stenosis. Mild is less than 50% stenosis. Moderate is 50-69% stenosis. Severe is 70% to 99% stenosis. Total occlusion is no detectable patent lumen. ADDENDUM: 03/01/23 1452 THIS REPORT CONTAINS FINDINGS THAT MAY BE CRITICAL TO PATIENT CARE. The findings were verbally communicated via telephone conference with Mark Iniguez at 2:56 PM CDT on 03/01/2023. The findings were acknowledged and understood. Laboratory Results WBC 14.4 10^3/uL (4.0-10.0) H 03/01/23 16:19 RBC 4.47 10^6/uL (4.1-5.3) 03/01/23 16:19 Hgb 13.3 g/dL (11.5-15.3) 03/01/23 16:19 Hct 41.5 % (37.0-47.0) 03/01/23 16:19 MCV 92.8 fl (81-99) 03/01/23 16:19 MCH 29.8 pg (28.0-34.0) 03/01/23 16:19 MCHC 32.0 g/dL (30.0-36.0) 03/01/23 16:19 RDW 12.7 % (12.1-15.1) 03/01/23 16:19 Plt Count 341 10^3/cmm (130-400) 03/01/23 16:19 MPV 9.1 fL (7.4-10.4) 03/01/23 16:19 Neut % (Auto) 71.2 % 03/01/23 16:19 Lymph % (Auto) 21.5 % 03/01/23 16:19 [place] % (Auto) 5.7 % 03/01/23 16:19 Eos % (Auto) 0.6 % 03/01/23 16:19 Baso % (Auto) 0.2 % 03/01/23 16:19 Neut # (Auto) 10.26 10^3/uL (1.8-7.7) H 03/01/23 16:19 Lymph # (Auto) 3.1 10^3/uL (0.8-4.8) 03/01/23 16:19 [place] # (Auto) 0.8 10^3/uL (0.2-0.9) 03/01/23 16:19 Eos # (Auto) 0.1 10^3/uL (0.0-0.8) 03/01/23 16:19 Baso # (Auto) 0.0 10^3/uL (0.0-0.1) 03/01/23 16:19 Nucleated RBC % (auto) 0 % 03/01/23 16:19 Nucleated RBCs # 0.0 /100WBC 03/01/23 16:19 PT 13.40 SECONDS (12.1-14.9) 03/01/23 16:19 INR 0.99 (0.8-1.2) 03/01/23 16:19 APTT 24.4 SECONDS (23.9-36.7) 03/01/23 16:19 Sodium 139 mmol/L (136-145) 03/01/23 16:19 Potassium 3.6 mmol/L (3.5-5.1) 03/01/23 16:19 Chloride 102 mmol/L (98-107) 03/01/23 16:19 Carbon Dioxide 26 mmol/L (22-29) 03/01/23 16:19 Anion Gap 14.6 (5-19) 03/01/23 16:19 BUN 24 mg/dL (6-20) H 03/01/23 16:19 Creatinine 0.8 mg/dL (0.5-0.9) 03/01/23 16:19 GFR Calculation 79.4 mL/min (90-130) L 03/01/23 16:19 Glucose 106 mg/dL (65-115) 03/01/23 16:19 POC Glucose 147 mg/dL (70-110) H 03/01/23 14:31 Calculated Osmolality 292 mOsm/kg (285-295) 03/01/23 16:19 Calcium 8.6 mg/dL (8.5-10.5) 03/01/23 16:19 Magnesium 2.1 mg/dL (1.7-2.3) 03/01/23 16:19 Total Bilirubin 0.3 mg/dL (0.15-1.2) 03/01/23 16:19 AST 18 U/L (0-32) 03/01/23 16:19 ALT 27 U/L (0-33) 03/01/23 16:19 Alkaline Phosphatase 86 U/L (35-105) 03/01/23 16:19 C-Reactive Protein 4.6 mg/L (0.0-4.9) 03/01/23 16:19 Total Protein 6.6 g/dL (6.6-8.7) 03/01/23 16:19 Albumin 4.2 g/dL (3.5-5.2) 03/01/23 16:19 Globulin 2.4 g/dL (1.3-4.6) 03/01/23 16:19 Urine Color Yellow (Yellow) 03/01/23 15:30 Urine Appearance Clear (CLEAR) 03/01/23 15:30 Urine pH 5 (5-7) 03/01/23 15:30 Ur Specific [place] 1.005 (1.005-1.030) 03/01/23 15:30 Urine Protein Neg (Negative) 03/01/23 15:30 Urine Glucose (UA) Norm (Normal) 03/01/23 15:30 Urine Ketones Negative (Negative) 03/01/23 15:30 Urine Blood Neg (Negative) 03/01/23 15:30 Urine Nitrate Negative (Negative) 03/01/23 15:30 Urine Bilirubin Neg (Negative) 03/01/23 15:30 Urine Urobilinogen Norm mg/dL (Negative) 03/01/23 15:30 Ur Leukocyte Esterase Negative (Negative) 03/01/23 15:30 Urine Opiates Screen Negative ng/mL (Negative) 03/01/23 15:30 Ur Barbiturates Screen Negative ng/mL (Negative) 03/01/23 15:30 Ur Phencyclidine Scrn Negative ng/mL (Negative) 03/01/23 15:30 Ur Amphetamines Screen Negative ng/mL (Negative) 03/01/23 15:30 U Benzodiazepines Scrn Positive ng/mL (Negative) H 03/01/23 15:30 Harold < 0.1 mmol/L (0.6-1.2) L 03/01/23 16:19 Urine Cocaine Screen Negative ng/mL (Negative) 03/01/23 15:30 U Marijuana (THC) Screen Negative ng/mL (Negative) 03/01/23 15:30 EKG Data EKG 1: I personally reviewed and interpreted this EKG as follows: EKG interpretation date: 03/01/23 EKG interpretation time: 14:28 Prior EKG tracings: not available for review Interpretation: EKG showed sinus tachycardia with ventricular rate of 116 bpm, CO interval 154, QRS duration 95, QTc of 378, no ST-T wave changes Discharge Plan Discharge Patient Disposition: Admitted As Inpatient Clinical Impression: Cerebrovascular accident Condition: Stable Prescriptions: No Action venlafaxine 150 mg capsule,extended release 24hr 150 mg PO QAM valsartan 80 mg tablet 80 mg PO QAM pantoprazole 40 mg tablet,delayed release (DR/EC) 40 mg PO BID clonidine HCl 0.1 mg tablet 0.1 mg PO Q6H PRN (Reason: hypertensive emergency) Qty: 14 0RF Referrals: Rob Franco MD [Primary Care Provider] - Coding Level of Care Code 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
[2023-03-01 15:10] LABS: Glucose Point of Care 147 mg/dL (70-110)
[2023-03-01] MEDS: sodium chloride 0.9% 50 ML 200 ML IV (15:10)
[2023-03-01] MEDS: ketorolac 30 mg/mL INJ IVP (15:14)
[2023-03-01 15:58] LABS: Add Urine Microscopic? NO; Charge for UA Resulting for Rev
[2023-03-01 16:10] LABS: Amphetamines Screen Urine Negative (Negative); Barbiturates Screen Urine Negative (Negative); Benzodiazepines Screen Urine Positive (Negative); Cocaine Screen Urine Negative (Negative); Opiate Screen Urine Negative (Negative); PCP Screen Urine Negative (Negative); THC Screen Urine Negative (Negative)
[2023-03-01 16:15] LABS: Bilirubin Urine Neg (Negative); Blood Urine Neg (Negative); Glucose Urine UA Norm (Normal); Ketones Urine Negative (Negative); Leukocyte Esterase Urine Negative (Negative); Nitrate Urine Negative (Negative); Protein Urine Neg (Negative); Specific Gravity, Urine 1.005 (1.005-1.030); Urine Appearance Clear (CLEAR); Urine Color Yellow (Yellow); Urobilinogen Urine Norm (Negative); pH Urine 5 (5-7)
[2023-03-01 16:32] LABS: Basophils % 0.2 %; Eosinophils # 0.1 10^3/uL (0.0-0.8); Eosinophils % 0.6 %; Hematocrit 41.5 % (37.0-47.0); Hemoglobin 13.3 g/dL (11.5-15.3); Lymphocytes # 3.1 10^3/uL (0.8-4.8); Lymphocytes % 21.5 %; Mean Corpuscular Hemoglobin 29.8 pg (28.0-34.0); Mean Corpuscular Volume 92.8 fl (81-99); Mean Platelet Volume 9.1 fL (7.4-10.4); Monocytes # 0.8 10^3/uL (0.2-0.9); Monocytes % 5.7 %; Neutrophils # 10.26 10^3/uL (1.8-7.7); Neutrophils % 71.2 %; Nucleated Red Blood Cells % 0 %; Platelet Count 341 10^3/cmm (130-400); Red Blood Count 4.47 10^6/uL (4.1-5.3); Red Cell Distribution Width 12.7 % (12.1-15.1); White Blood Count 14.4 10^3/uL (4.0-10.0)
[2023-03-01 16:44] LABS: INR 0.99 (0.8-1.2)
[2023-03-01 16:45] LABS: Partial Thromboplastin Time 24.4 SECONDS (23.9-36.7)
[2023-03-01 16:49] LABS: Alanine Aminotransferase 27 U/L (0-33); Albumin Level 4.2 g/dL (3.5-5.2); Alkaline Phosphatase 86 U/L (35-105); Anion Gap 14.6 (5-19); Aspartate Amino Transferase 18 U/L (0-32); Blood Urea Nitrogen 24 mg/dL (6-20); C Reactive Protein 4.6 mg/L (0.0-4.9); Calcium 8.6 mg/dL (8.5-10.5); Carbon Dioxide 26 mmol/L (22-29); Chloride 102 mmol/L (98-107); Creatinine Clr Calc Pharmacy 123.4088; Globulin 2.4 g/dL (1.3-4.6); Glomerular Filtration Rate 79.4 mL/min (90-130); Glucose 106 mg/dL (65-115); Magnesium 2.1 mg/dL (1.7-2.3); Osmolality Calculated 292 mOsm/kg (285-295); Potassium 3.6 mmol/L (3.5-5.1); Sodium 139 mmol/L (136-145); Total Bilirubin 0.3 mg/dL (0.15-1.2); Total Protein 6.6 g/dL (6.6-8.7)
[2023-03-01 16:53] LABS: Lithium < 0.1 mmol/L (0.6-1.2)
--- NOTE | 2023-03-01 16:55 | PC.NURSE ---
PT BROUGHT IN BY EMS WITH R SIDED WEAKNESS AND DEFICITS. DR LUNA AT BEDSIDE. PT TAKEN TO CT [facility]. DR DRAKE AT BEDSIDE. BOTH DRS CONFIRM ADMINISTRATION OF TPA. JUAN RN, UCHE, RN, AND MYSELF CONFIRMED ALL DOSAGES OF TPA. SEE CHART FOR FURTHER ASSESSMENTS.
[2023-03-01] MEDS: iohexol 350 mg/mL 500 mL Btl (per mL) IV (17:46)
--- NOTE | 2023-03-01 19:42 | PM.HP ---
Providers/Chief Complaint Admitting Physician: Law Barroso MD Primary Care Provider: Rob Franco MD Chief Complaint: STROKE LIKE SYMPTOMS History of Present Illness Donis Chapman is a 42 year old female who started experiencing right-sided weakness around 12:30 PM today presented to the hospital within 30 to 40 minutes, patient received tPA after initial evaluation, patient was suffering from right-sided arm and lower extremity weakness around right-sided facial droop with slurring with speech, she was complaining of headache CT head did not show any signs of bleeding, initial NIH score was 10 CTA head and neck did not show any arterial occlusion or dissection., EKG showed sinus tachycardia She is stating that she was seen in the ER on Thursday for chest pain and hypertension, her pressure was 180s over 126 mm weeks she was given losartan, chest pain resolved with slight improvement of blood pressure, she was waiting for stress test, today when she returned to [facility] around noon she was in her bedroom when she started noticing scanning speech right-sided weakness she managed herself to go to the living area and told her daughter to call who called 911 Patient was tachycardic, hypertensive, stroke alert was called At the time of my evaluation patient was pleasant however at the end of my meeting her pressure pressure was 157/124 mmHg, I asked nurse to give her 10 mg of IV labetalol, she was complaining of severe headache, I have requested another CT head without contrast and put her on 5 L nasal cannula to see if that would improve her headache, given her tramadol Review of Systems Const: Denies: fever(s) Eyes: Denies: change in vision ENMT: Denies: throat pain Card: Denies: chest pain Resp: Denies: dyspnea GI: Denies: abdominal pain : Denies: flank pain Musc: Reports: limited range of motion Skin/Breast: Denies: rash Neuro: Reports: numbness in extremities, weakness in extremities and difficulty walking Psych: Reports: anxiety Endo: Denies: polyuria Medications/Allergies Home Medications Medication Instructions Recorded Confirmed Last Taken Type clonidine HCl 0.1 mg tablet 0.1 mg PO Q6H PRN hypertensive 02/27/23 03/01/23 Unknown Rx emergency #14 tabs pantoprazole 40 mg tablet,delayed 40 mg PO BID 02/27/23 03/01/23 03/01/23 History release valsartan 80 mg tablet 80 mg PO QAM 02/27/23 03/01/23 03/01/23 History venlafaxine 150 mg 150 mg PO QAM 02/27/23 03/01/23 03/01/23 History capsule,extended release 24 hr Allergies Allergy/AdvReac Type Severity Reaction Status Date / Time codeine Allergy ADR-Vomitin Verified 03/01/23 15:04 g iodine Allergy ALGY-Anaphy Verified 03/01/23 15:04 laxis latex Allergy ALGY-Rash Verified 03/01/23 15:04 shellfish derived Allergy ALGY-Anaphy Verified 03/01/23 15:04 laxis PFSH Acute PFSH: Medical History (Updated 03/01/23 @ 20:26 by Law Barroso MD) Chest pain Hypertension Surgical History (Updated 03/01/23 @ 20:26 by Law Barroso MD) History of surgical removal of meniscus of knee Hx of appendectomy Tubal ligation status Family History (Updated 03/01/23 @ 20:28 by Law Barroso MD) Other CAD (coronary artery disease) Family history of premature coronary artery disease Social History (Updated 03/01/23 @ 20:28 by Law Barroso MD) Smoking and tobacco status: never smoked Alcohol intake: never Substance/Drug Use: never Household members: spouse Housing: House Vitals/I&O/Wt Last Vital Signs Temp 98.5 F 03/01/23 17:00 Pulse 100 03/01/23 17:30 Resp 30 H 03/01/23 17:30 BP 135/88 03/01/23 17:30 Pulse Ox 95 03/01/23 17:30 O2 Del Method Room Air 03/01/23 18:04 03/01/23 03/01/23 03/01/23 06:59 14:59 22:59 Intake Total 150 / 150 Balance 150 / 150 Weight last 48 hrs Weight 102.285 kg Weight 109.769 kg Physical Exam Narrative: Right-sided facial asymmetry Right-sided hemianopsia Right arm and leg weakness Good strength on left side overall S1, S2 sinus tachycardia Hypertensive Complaining of headache Abdomen soft S1, S2 sinus tachycardia NIH 6 Lower extremity no edema Appears stated age Well-groomed Euvolemic Scanning speech Urinary Catheter Management: Rahman: Cath Placed During This Visit: yes Reason for Continuing Indwelling Catheter: Accurate Measurement of Urinary Output in Critically Ill Patients Urinary Catheter Date of Insertion: 03/01/23 Data 03/01/23 16:19 03/01/23 16:19 A&P Assessment and plan (1) Cerebrovascular accident: Qualifiers: CVA mechanism: unspecified Qualified Code(s): I63.9 - Cerebral infarction, unspecified (2) Hypertension: (3) Sinus tachycardia: (4) Hypertensive urgency: Plan Acute CVA Patient received tPA Target blood glucose below 180, will give her labetalol if her systolic blood pressure is above 180 and diastolic above 105 mmHg allow permissive hypertension For headache use Tylenol No need of labs in next 24 hours Start aspirin 24 hours after tPA which will be on Thursday We will request echo with bubble study OSCAR Protein C& S activity B12, homocystine levels Keep patient monitored on telemetry Start atorvastatin 80 mg Patient has received labetalol 10 mg IV push for hypertension Monitor in ICU Frequent neurochecks Full code DVT contraindicated because patient had received tPA For her headache I will put her on 5 L nasal cannula oxygen, give her tramadol, repeat CT head on stat basis, For hypertension I will add amlodipine, chlorthalidone and IV push of labetalol on as-needed basis if blood pressure is greater than 180/105 mmHg On Thursday night patient was having chest pain there is family history of coronary disease I will do stress test on Thursday I have already told the family in case we noticed any signs of intracranial bleed with bradycardia, hypertension, CT scan evidence we will transfer her right away Significant amount was spent at the bedside talking with the patient evaluating and talking with the family 30 to 40 minutes of family meeting other than clinical evaluation Attestations Medical Necessity Statement*: More than 2 midnights anticipated post EP evaluation in the ICU Diagnoses Cerebrovascular accident I63.9 CVA mechanism: unspecified Hypertension I10 Sinus tachycardia R00.0 Hypertensive urgency I16.0
[2023-03-01 20:13] LABS: D Dimer 1.25 ug/mIFEU (0-0.59)
[2023-03-01 20:19] LABS: Homocysteine 15.73
--- NOTE | 2023-03-01 20:22 | CTR_ITS ---
PROCEDURE INFORMATION: Exam: CT Head Without Contrast Exam date and time: 03/01/2023 9:09 PM Age: 42 years old Clinical indication: Pain; Headache; Patient HX: Severe VILLALPANDO with diaphoresis post tpa administration at 1430 hours today. TECHNIQUE: Imaging protocol: Computed tomography of the head without contrast. Radiation optimization: All CT scans at this facility use at least one of these dose optimization techniques: automated exposure control; mA and/or kV adjustment per patient size (includes targeted exams where dose is matched to clinical indication); or iterative reconstruction. REPORTING DATA: Count of CT and Cardiac NM exams in prior 12 months: This patient has received [address] and 0 known cardiac nuclear medicine studies in the 12 months prior to the current study. COMPARISON: CT angio headneck* [id number] 03/01/2023 2:10 PM RADIATION DOSE METRICS: Total DLP (mGy-cm): 892.08 FINDINGS: Brain: Normal. No hemorrhage. Unremarkable white matter. No mass effect. Cerebral ventricles: No ventriculomegaly. Paranasal sinuses: Minimal right maxillary sinus mucosal thickening. Mastoid air cells: Visualized mastoid air cells are well aerated. Bones/joints: Unremarkable. No acute fracture. Soft tissues: Unremarkable. CT/CT head wo con* [id number] IMPRESSION: No acute intracranial findings.
--- NOTE | 2023-03-01 20:29 | ECG_ITS ---
[facility] Test Date: 2023-03-01 Pat Name: Donis Chapman Department: Room: ICU12 Gender: Female Manager Product: : 1980 Requested By: Newton Lam Order Number: [id number] Moore MD: Jean Musa M.D. Measurements Intervals [place] Rate: 91 P: 13 MT: 155 QRS: 15 QRSD: 97 T: 14 QT: 368 QTc: 455 Interpretive Statements SINUS RHYTHM Compared to ECG 03/01/2023 14:28:44 Sinus tachycardia no longer present Electronically Signed On 03-02-2023 17:07:10 CDT by Jean Musa M.D. [email or web address] [email or web address] west che[facility] hospitalSumavisos/store/OM/[id number]
[2023-03-01 20:37] LABS: Thyroid Stimulating Hormone 0.58 uIU/mL (0.27-4.20); Vitamin B12 392 pg/mL (232-1245)
--- NOTE | 2023-03-01 20:40 | PC.NURSE ---
Physician Communication Dr. Barroso at bedside at around 2030. Patient complaining of worsening headache and nausea; blood pressure increasing as high as 181/115. Verbal order received for one time dose of 10 mg IVP labetalol and 50 mg tramadol PO once. Stat CT order to be placed by Dr. Barroso.
[2023-03-01] MEDS: TRAMadol 50 mg Tablet PO (20:48)
[2023-03-01] MEDS: ondansetron 2 mg/ML SDV 2 mL 4 MG IVP (21:00)
[2023-03-01] MEDS: morphine 4 mg/mL SDV 1 mL 2 MG IVP (21:34)
--- NOTE | 2023-03-01 21:35 | PC.NURSE ---
Increasing nausea After zofran administration, patient still complaining of worsening nausea and head pain, delayed speech and right sided deficits still present. Dr. Lam notified and orders placed by Dr. Lam for phenergan and reglan.
[2023-03-01 21:37] LABS: Estmated Average Glucose 108; Hemoglobin A1C 5.4 % (4.0-6.0)
--- NOTE | 2023-03-01 22:25 | PC.NURSE ---
Physician Communication Patient's right sided deficits and speech delay seem advanced as compared to previous assessment. Headache still severe. Dr. Lam notified; order received to not administer PRN labetalol without confirming administration with Dr. Lam first.
[2023-03-01] MEDS: promethazine 25 mg/mL SDV 1 mL 12.5 MG IM (22:32)
[2023-03-01] MEDS: metoclopramide 5 mg/mL SDV 2 mL IVP (23:16)
[2023-03-02] VITALS (93 sets, daily range): BP systolic 93–170; BP diastolic 53–126; PULSE 59–106; RESP 12–23; TEMP 36.6–36.9; O2SAT 90–100; BMI 33.3
[2023-03-02] MEDS: sodium chloride 0.9% 1,000 ML 75 ML IV (00:44)
--- NOTE | 2023-03-02 01:00 | PC.NURSE ---
Addendum entered by Na Ramirez RN 03/02/23 07:05: Additional order received to allow permissive hypertension as high as 180/105. Original Note: Blood Pressure Patient's blood pressure maintaining around 119/78 rather than remaining hypertensive. Dr. Lam contacted and order received to start NS at 75 ml/hr as a maintenance fluid.
[2023-03-02] MEDS: morphine 4 mg/mL SDV 1 mL 2 MG IVP ×3 (02:19→19:31)
[2023-03-02] MEDS: lanolin oint 7 gm 1 APPLIC TOPICAL (02:55)
[2023-03-02] MEDS: TRAMadol 50 mg Tablet PO ×4 (03:19→21:28)
--- NOTE | 2023-03-02 07:00 | MR_ITS ---
WS: [id number] MRI BRAIN WITHOUT CONTRAST HISTORY: cva COMPARISON: None available. TECHNIQUE: Diffusion imaging, multiplanar T1, T2 and FLAIR imaging obtained. Metallic artifact obscuring portions of the brain. Body piercings could not be removed. No evidence for acute infarct or hemorrhage. Pate-white matter differentiation is normal. No diffusio n abnormalities are identified. Portions of the brain are obscured by artifact. No remote or acute infarcts are volume loss. Ventricles and extra-axial spaces are normal. No inferior displacement of cerebellar tonsils. The sella turcica and pituitary gland are unremarkabl e. Dural venous sinuses and [place] of [place] demonstrate no abnormality on this unenhanced studies. Paranasal sinuses: Clear. Mastoid air cells: Normal. Calvarium and scalp: Intact. MR/MR head wo con* [id number] IMPRESSION: 1. No diffusion-weighted abnormalities are identified. No evidence for an acut e infarct. Portions of the brain are obscured by artifact from the patient's pi ercings. 2. No significant volume loss. No prior remote infarct. 3. No hydrocephalus.
[2023-03-02] MEDS: ondansetron 2 mg/ML SDV 2 mL 4 MG IVP ×2 (07:58→18:13)
--- NOTE | 2023-03-02 08:04 | PC.OT ---
OT EVALUATION ORDERS RECEIVED. WILL HOLD THIS DATE DUE TO TPA ADMINISTRATION PROTOCOL.
--- NOTE | 2023-03-02 08:31 | PM.SAN ---
Stroke Alert Activation ED Arrival Date: 03/01/23 ED Arrival Time: 14:04 Last Known Normal/at Baseline: < 1 hour ago Other Last Known Well Infomation: Stroke alert was called while this patient was in route by EMS for unilateral weakness and difficulty ambulating. She was taken directly to CAT scan and evaluated by Dr. Iniguez. I talked with Dr. Iniguez as soon as he had evaluated the patient and we agreed that she should receive tPA as she had a measurable neurologic deficit with right hemiparesis, difficulty communicating, was not on a blood thinner. I arrived in the emergency department while we were still talking and found that the patient's blood pressure was 112 diastolic and ordered labetalol. The nurses were in the process of computing her tPA dosage and we agreed to recheck her blood pressure before giving her the bolus. I reviewed her CAT scan with Dr. Iniguez and found no sign of hemorrhage. While the nurses were gathering the tPA I performed an NIH stroke scale and found right hemiparesis, loss of vision on the right, atypical expressive aphasia. I thought that the patient was probably having a complicated migraine but current recommendation is that if the patient has a deficit that she should be treated. Bolus was given while I was standing there but the nurse did not record the time. I am sure it was within 30 minutes of arrival. Stroke Alert Activated by: ems Stroke Alert Activation Time: 13:45 Stroke MD @ Bedside Time: 14:04 NIH Stroke Scale Time: 14:15 NIH stroke score NIHSS: Level Of Consciousness - 1a: 0 Level Of Consciousness Questions - 1b: Both Correct Level Of Consciousness Commands - 1c: Both Correct Best Gaze - 2: Normal Visual Banda - 3: Partial Hemianopia (maybe right eye only) Facial Palsy - 4: Minor Paralysis Motor Arm Right - 5: Drift Motor Arm Left - 5: No Drift Motor Leg Right - 6: Effort Against Fairborn Motor Leg Left - 6: No Drift Limb Ataxia - 7: Absent Sensory - 8: Mild To Moderate Loss Best Language - 9: Mild/Moderate Aphasia Dysarthia - 10: Mild/Moderate Dysarthia Extinction And Inattention - 11: 0 Score: Total Score: 8 Stroke Alert Data/Treatment Time to CT of Head: 14:04 CT Impression: Dr. Iniguez ordered CT angiogram and it was unremarkable. There were no signs of hemorrhage. Stroke Risk Factors: hypertension tPA Started Date: 03/01/23 tPA Admin Prior to Arrival: No Standardized Stroke Orders Used: Yes Critical Care Time Critical Care Time: 30 - 74 mins Additional information about critical care time: The patient's was present. I reviewed the stroke education booklet with him and explained the test that have been done, explained that tPA had been given. I discussed with the patient that it was appropriate to give tPA even though I had some concern that her symptoms might be related to migraine because of atypical features. A&P Assessment and plan (1) Acute ischemic left middle cerebral artery (MCA) stroke: 42-year-old woman presenting with acute onset of right hemiparesis that is significant, loss of vision with an atypical pattern that would suggest her right eye rather than right homonymous but it was difficult to determine. She had some atypical features. She has expressive speech difficulty. She arrived with severe hypertension and received 1 dose of labetalol, her blood pressure came down and she was able to be treated with tPA. I was in attendance and reviewed her CT of the head. I spoke with Dr. Iniguez who accompanied the patient to CAT scan and she was just coming out as I arrived. Admit to ICU. Address her blood pressure within the guidelines of tPA treatment. Admit to the hospitalist. Standard work-up for causes of stroke initiated. She already had a CT angiogram that did not show large vessel occlusion. At the time of discharge she should be scheduled for 30-day monitor. She will follow-up with Dr. Franco and I will be glad to see her in follow-up as well. Coding Level of Care Code Acute Code for [facility] Diagnoses Acute ischemic left middle cerebral artery (MCA) stroke I63.512
[2023-03-02] MEDS: atorvastatin 40 mg Tablet 80 MG PO (08:32)
[2023-03-02] MEDS: amlodipine 10 mg Tablet PO (08:32)
[2023-03-02] MEDS: ketorolac 30 mg/mL INJ 15 MG IVP ×2 (08:33→17:16)
[2023-03-02] MEDS: metoclopramide 5 mg/mL SDV 2 mL IVP ×2 (10:53→21:27)
--- NOTE | 2023-03-02 12:19 | ECG_ITS ---
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 Interpretive Statements NAME OF STUDY: LEXISCAN SESTAMIBI STRESS TEST INDICATION:, PROCEDURE: At the baseline, the EKG revealed sinus tachycardia with diffuse nonspecific T wave changes. The baseline heart was 101 bpm with a blood pressue of 153/75 mm of Hg Lexiscan was infused over a period of 20 seconds. A total of 0.4 milligrams of Lexiscan was infused. The stress phase was continued for a total of 5 minutes. Heart rate at the end of the stress phase was 126 bpm with a blood pressure 148/93 mm of Hg. The EKG at the peak infusion revealed no significant changes. Sestamibi was injected 20 seconds after the Lexiscan infusion. Heart rate at the end of the recovery phase was 107 bpm with a blood pressure of 128/72 mm of Hg. CONCLUSION: 1. No significant EKG changes with the LexiScan infusion 2. No LexiScan induced chest pain or cardiac arrhythmia 3. Normal blood pressure and heart rate response 4. Sestamibi/sestamibi perfusion scan pending; see separate report. Electronically Signed On 03-06-2023 7:32:13 CDT by Wilfredo Solis M.D. [id number]
--- NOTE | 2023-03-02 12:29 | P.PN_ITS ---
Subjective Subjective: Patient complains of episodic headaches, hypertension with facial flushing She thinks she is going through menopause I will request 24-hour catecholamine and 5-hydroxyindoleacetic acid TSH normal MRI head did not show any active signs of ischemic stroke I have requested stress test for tomorrow along CTA chest to rule out PE because she was complaining of chest pain in her shoulder blades Vitals/I&O/Wt Last Vital Signs Temp 98.4 F 03/02/23 10:00 Pulse 83 03/02/23 10:45 Resp 15 03/02/23 10:45 BP 135/92 03/02/23 10:45 Pulse Ox 97 03/02/23 10:15 O2 Del Method Nasal Cannula 03/02/23 03:15 O2 Flow Rate 5 03/02/23 03:15 03/01/23 03/02/23 03/02/23 22:59 06:59 14:59 Intake Total 240 / 240 20 / 260 Output Total 1200 / 1200 Balance 240 / 240 -1180 / -940 Weight last 48 hrs Weight 102.285 kg Weight 102.285 kg Weight 109.769 kg Physical Exam 2 Narrative: Right-sided hemianopsia right-sided significant weakness Scanning speech Does not have typical cerebellar symptoms, [id number] test intact Currently on 5 L nasal cannula to improve her headache Abdomen soft is at the bedside Facial flushing noted Abdomen soft Lower extremity no edema She is able to lift her right leg for 5 seconds in the ER She is able to lift her right arm in the ER for about 10 seconds as well Right-sided facial asymmetry is minimal There is twitching of her right eyelid Urinary Catheter Management: Rahman: Cath Placed During This Visit: yes Reason for Continuing Indwelling Catheter: Accurate Measurement of Urinary Output in Critically Ill Patients Urinary Catheter Date of Insertion: 03/01/23 Data 03/01/23 16:19 03/01/23 16:19 A&P Assessment and plan (1) Acute ischemic left middle cerebral artery (MCA) stroke: (2) Hypertensive urgency: (3) Sinus tachycardia: (4) Cerebrovascular accident: Qualifiers: CVA mechanism: unspecified Qualified Code(s): I63.9 - Cerebral infarction, unspecified (5) Angina at rest: (6) Migraine: (7) Facial flushing: Plan Acute CVA Scanning speech without typical cerebellar symptoms acute CVA MCA territory symptoms MRI head unremarkable Status post tPA No significant improvement in terms of her symptoms today as compared to yesterday Episodic palpitations facial flushing, hot flashes, hypertension Check 24-hour catecholamine and 5-hydroxyindoleacetic acid We will do stress test tomorrow morning, CTA chest rule out PE and aortic dissection Echo report is pending Continue PT/OT/ST Plan is to discharge her home with outpatient physical therapy Full code Hypertensive emergency: Patient is getting chlorthalidone, lisinopril, amlodipine, labetalol Migraine headache, patient describing her headache as throbbing in nature back of her head which improved with tramadol, I have put her on 5 L oxygen to see if that would improve her headache however no significant tumor noted so far Attestations Medical Necessity Statement*: She can be transferred to can be transferred out of ICU to [facility] Diagnoses Acute ischemic left middle cerebral artery (MCA) stroke I63.512 Hypertensive urgency I16.0 Sinus tachycardia R00.0 Cerebrovascular accident I63.9 CVA mechanism: unspecified Angina at rest I20.8 Migraine G43.909 Facial flushing R23.2
[2023-03-02 14:24] LABS: Cortisol Random 2.18 ug/dL (2.47-19.5)
[2023-03-02] MEDS: potassium chloride ER 20 mEq Tablet 40 MEQ PO (15:42)
[2023-03-02] MEDS: gabapentin 100 mg Capsule PO (17:41)
--- NOTE | 2023-03-02 19:43 | USCV_ITS ---
Donis Chapman Age: 42 Gender: F : 1980 Exam Date: 03/02/2023 10:53 Ordering Phys: Law Barroso MD Technologist: Rodo Vargas [place] [facility] [place]: cva BP: 119 / 83 HR: 83 Rhythm: Sinus Technical Quality: Adequate MEASUREMENTS (Male / Female) Normal Values 2D ECHO LV Diastolic Diameter PLAX 4.5 cm 4.2 - 5.9 / 3.9 - 5.3 cm LV Systolic Diameter PLAX 2.4 cm IVS Diastolic Thickness 1.1 cm 0.6 - 1.0 / 0.6 - 0.9 cm IVS Systolic Thickness 1.6 cm LVPW Diastolic Thickness 1.1 cm 0.6 - 1.0 / 0.6 - 0.9 cm LVPW Systolic Thickness 1.6 cm LVOT Diameter 2.1 cm LV Ejection Fraction 2D Teich 78.4 % LV Ejection Fraction MOD 2C 58.5 % LV Ejection Fraction 2C AL 59.7 % LA Diameter 3.5 cm M-MODE Aortic Annulus Diameter 3.4 cm LA Ao Ratio MM 1.1 MV E Point Septal Separation 0.5 cm DOPPLER AV Peak Velocity 139.0 cm/s LVOT Peak Velocity 95.0 cm/s AV Area Cont Eq vti 2.4 cm squared AV Area Cont Eq pk 2.3 cm squared MV Area PHT 5.0 cm squared Mitral E to A Ratio 1.0 MV E' Velocity 35.5 cm/s Mitral E to MV E' Ratio 5.3 Mitral E to LV E' Lateral Ratio 5.0 Mitral E to LV E' Septal Ratio 5.7 TR Peak Velocity 129.3 cm/s TR Peak Gradient 6.7 mmHg Right Atrial Pressure 5.0 mmHg Pulmonary Artery Systolic Pressu 11.7 mmHg RV Acceleration Time 0.1 s FINDINGS Left Ventricle Left ventricle is normal in size. LV systolic function is normal with EF 55 to 60%. No regional wall motion abnormalities are seen. Diastolic function is normal Right Ventricle Normal in size and function Right Atrium Normal in size. Limited quality bubble study because of poor ultrasonic windows. but grossly not showing intracardiac shunting. Left Atrium Normal in size Mitral Valve Structurally normal mitral valve. Aortic Valve Structurally normal aortic valve. No significant stenosis or regurgitation. Tricuspid Valve Not well visualized. Trace tricuspid regurgitation. Insufficient TR jet to calculate RVSP. Pulmonic Valve Not well-visualized Pericardium Normal Aorta Normal in size IVC Appears to be normal CONCLUSIONS LV systolic function is normal with EF 55 to 60%. Diastolic function is normal. Limited quality bubble study because of poor ultrasonic windows. Grossly no intracardiac shunting is seen. Trace tricuspid regurgitation No comparison studies are available Chip Webb MD (Electronically Signed) Final Date: 02 Mar 2023 18:18 S
--- NOTE | 2023-03-02 21:52 | ECG_ITS ---
[facility] Test Date: 2023-03-02 Pat Name: Donis Chapman Department: Room: ICU12 Gender: Female Residential Installer: : 1980 Requested By: Stacey Cueto Order Number: [id number] Oscar MD: Chip Webb M.D. Measurements Intervals [place] Rate: 74 P: -25 [place]: 165 QRS: -22 QRSD: 102 T: -25 QT: 415 QTc: 461 Interpretive Statements SINUS RHYTHM BORDERLINE LEFT AXIS DEVIATION [QRS AXIS < -20] NONSPECIFIC T-WAVE ABNORMALITY Compared to ECG 03/01/2023 20:32:29 T-wave abnormality now present Electronically Signed On 03-03-2023 11:53:44 CDT by Chip Webb M.D. [email or web address].Victivgulf coast [email or web address] health care systemFarmDroppaulding county [email or web address]/store/[id number]
--- NOTE | 2023-03-02 22:00 | PC.NURSE ---
Chest Pain Patient complaining of chest pain radiating in between her shoulder blades, a severe headache, nausea and worsening numbness/tingling on the right side of her body. No telemetry changes noted, vital signs stable. Dr. Cueto contacted and orders received to draw CBC, BMP, troponin series, magnesium level, d-dimer, as well as perform ekg series. EKG performed and result sent to Dr. Cueto. Medications administered per DEC.
[2023-03-02 22:06] LABS: Basophils % 0.2 %; Eosinophils # 0.2 10^3/uL (0.0-0.8); Hematocrit 41.8 % (37.0-47.0); Hemoglobin 13.4 g/dL (11.5-15.3); Lymphocytes % 32.1 %; Mean Corpuscular HGB Conc 32.1 g/dL (30.0-36.0); Mean Corpuscular Volume 93.7 fl (81-99); Mean Platelet Volume 8.8 fL (7.4-10.4); Monocytes # 0.7 10^3/uL (0.2-0.9); Monocytes % 7.5 %; Neutrophils # 5.32 10^3/uL (1.8-7.7); Neutrophils % 57.8 %; Nucleated Red Blood Cells % 0 %; Platelet Count 320 10^3/cmm (130-400); Red Blood Count 4.46 10^6/uL (4.1-5.3); Red Cell Distribution Width 12.6 % (12.1-15.1); White Blood Count 9.2 10^3/uL (4.0-10.0)
[2023-03-02 22:22] LABS: Magnesium 2.2 mg/dL (1.7-2.3)
[2023-03-02 22:23] LABS: Troponin(5th) Baseline 6 ng/L (0-10)
[2023-03-02 22:24] LABS: Anion Gap 14.9 (5-19); Blood Urea Nitrogen 20 mg/dL (6-20); Calcium 8.8 mg/dL (8.5-10.5); Carbon Dioxide 27 mmol/L (22-29); Chloride 100 mmol/L (98-107); Glomerular Filtration Rate 79.4 mL/min (90-130); Glucose 120 mg/dL (65-115); Osmolality Calculated 290 mOsm/kg (285-295); Potassium 3.9 mmol/L (3.5-5.1); Sodium 138 mmol/L (136-145)
[2023-03-03] VITALS (54 sets, daily range): BP systolic 89–128; BP diastolic 58–86; PULSE 56–97; RESP 12–21; TEMP 36.6–37.6; O2SAT 95–100
[2023-03-03 00:06] LABS: Troponin 5 2HR Delta 0 ABS# (0-10)
[2023-03-03 03:48] LABS: Basophils % 0.2 %; Eosinophils # 0.2 10^3/uL (0.0-0.8); Eosinophils % 2.1 %; Hematocrit 40.9 % (37.0-47.0); Hemoglobin 12.9 g/dL (11.5-15.3); Lymphocytes # 2.6 10^3/uL (0.8-4.8); Lymphocytes % 31.8 %; Mean Corpuscular HGB Conc 31.5 g/dL (30.0-36.0); Mean Corpuscular Hemoglobin 29.5 pg (28.0-34.0); Mean Corpuscular Volume 93.4 fl (81-99); Mean Platelet Volume 8.7 fL (7.4-10.4); Monocytes # 0.6 10^3/uL (0.2-0.9); Monocytes % 7.3 %; Neutrophils # 4.69 10^3/uL (1.8-7.7); Neutrophils % 58.1 %; Nucleated Red Blood Cells % 0 %; Platelet Count 288 10^3/cmm (130-400); Red Blood Count 4.38 10^6/uL (4.1-5.3); Red Cell Distribution Width 12.4 % (12.1-15.1); White Blood Count 8.1 10^3/uL (4.0-10.0)
[2023-03-03 04:09] LABS: Anion Gap 12.2 (5-19); Blood Urea Nitrogen 22 mg/dL (6-20); Calcium 8.6 mg/dL (8.5-10.5); Carbon Dioxide 29 mmol/L (22-29); Chloride 102 mmol/L (98-107); Glomerular Filtration Rate 92.7 mL/min (90-130); Glucose 99 mg/dL (65-115); Osmolality Calculated 291 mOsm/kg (285-295); Potassium 4.2 mmol/L (3.5-5.1); Sodium 139 mmol/L (136-145)
[2023-03-03 04:27] LABS: Troponin 5 6HR Delta 0 ng/L (0-12)
[2023-03-03] MEDS: morphine 4 mg/mL SDV 1 mL 2 MG IVP (05:50)
[2023-03-03 06:43] LABS: HCG, Serum Qual Negative (Negative)
--- NOTE | 2023-03-03 08:00 | NMCV_ITS ---
NM della perf SPECT r/s* [id number] Donis Chapman Age: 42 Gender: F : 1980 Exam Date: 03/03/2023 10:42 Ordering Phys: Law Barroso MD Technologist: ZOE Plunkett Exam Location: [facility] Indications: CHEST PAIN STRESS TEST Please see separate stress test report in [facility] for full findings IMAGE PROTOCOL Rest/Stress 1 Lexiscan Day Radiopharmaceutical Dose (mCi) Administration Site Administered by Rest: Tc-99m 11.0 IV ZOE Nuñez Sestamibi Stress:Tc-99m 28.8 IV ZOE Nuñez Sestamibi Rest: 03-Mar-2023 60 Discovery 630 Stress: 04-Mar-2023 30 Discovery 630 0.4mg Lexiscan. Supine position only as patient was unable to lay prone. SPECT RESULTS Technical Quality: Excellent Raw Data Analysis: Normal, Breast attenuation Image Corrections: No attenuation or motion correction applied Summed Stress Score: 0 Summed Rest Score: 2 Summed Difference Score: 0 PERFUSION FINDINGS Fairly uniform myocardial tracer uptake. No significant perfusion abnormalities. Attenuation artifacts are noted in the inferior wall region. FUNCTIONAL RESULTS (calculated via Gated SPECT) Stress Image LV EF (%): 85 Stress EDV (mL):52 TID: 0.75 Stress ESV (mL):8 FUNCTIONAL FINDINGS: Segmental wall motion analysis revealing no gross wall motion abnormalities IMPRESSIONS 1. Fairly uniform myocardial tracer uptake with no significant perfusion abnormalities. 2. Normal LV ejection fraction of 85%. 3. LV wall motion analysis revealing no gross wall motion abnormalities. 4. Normal LV volume. Low probability for coronary ischemia, based on the above findings Dr Wilfredo Solis MD FACC (Electronically Signed) Final Date: 05 Mar 2023 09:32 S
--- NOTE | 2023-03-03 08:44 | PC.NURSE ---
NEEDS NEW IV FOR STRESS TEST. CURRENT IV WAS KINKED AND PULLED OUT.
[2023-03-03] MEDS: amlodipine 10 mg Tablet PO (09:55)
[2023-03-03] MEDS: gabapentin 100 mg Capsule PO ×2 (09:55→18:03)
[2023-03-03] MEDS: atorvastatin 40 mg Tablet 80 MG PO (09:55)
[2023-03-03] MEDS: lisinopril 20 mg Tablet PO (09:55)
[2023-03-03] MEDS: chlorthalidone 25 mg Tablet PO (09:55)
[2023-03-03] MEDS: sennosides-docusate Tablet 1 TAB PO (09:56)
--- NOTE | 2023-03-03 10:50 | PM.PN ---
Subjective Subjective: Patient is still complaining of headache, case discussed with neurologist who has recommended Depakote loading dose and then starting 250 mg twice daily, will check Depakote level tomorrow morning Dr. Franco will see her in the morning Plan for stress test today Patient getting 24-hour urine collection today Some improvement of right arm and leg weakness today Vitals/I&O/Wt Last Vital Signs Temp 98 F 03/03/23 05:30 Pulse 80 03/03/23 10:02 Resp 16 03/03/23 10:02 BP 124/79 03/03/23 08:30 Pulse Ox 99 03/03/23 10:02 O2 Del Method Room Air 03/03/23 10:02 O2 Flow Rate 2 03/03/23 02:00 03/02/23 03/03/23 03/03/23 22:59 06:59 14:59 Intake Total 1240 / 1240 480 / 1720 Output Total 275 / 275 Balance 1240 / 1240 205 / 1445 Weight last 48 hrs Weight 102.285 kg Weight 102.285 kg Weight 109.769 kg Physical Exam Narrative: Still has scanning speech Complaining of headache Right arm and right leg weakness slightly better as compared to yesterday Does not have typical cerebellar symptoms Complaining of right eyelid twitching Right hemianopsia S1, S2 Blood pressure stable Currently on room air Abdomen soft Urinary Catheter Management: Rahman: Cath Placed During This Visit: yes Reason for Continuing Indwelling Catheter: Accurate Measurement of Urinary Output in Critically Ill Patients Urinary Catheter Date of Insertion: 03/01/23 Data 03/03/23 03:39 03/03/23 03:39 A&P Assessment and plan (1) Facial flushing: (2) Migraine: (3) Angina at rest: (4) Acute ischemic left middle cerebral artery (MCA) stroke: (5) Hypertensive urgency: (6) Sinus tachycardia: (7) Cerebrovascular accident: Qualifiers: CVA mechanism: unspecified Qualified Code(s): I63.9 - Cerebral infarction, unspecified Plan Acute MCA CVA Status post tPA tPA was given 48 hours ago We will start patient on aspirin and atorvastatin MRI did not show any signs of ischemic changes on cranial imaging Rhythm has been sinus, echo unremarkable Episodic palpitation with facial flushing I have added spironolactone, discontinue chlorthalidone Continue lisinopril, amlodipine, Requested 24-hour urine 5-hydroxyindoleacetic acid and catecholamine level Migraine/complex Depakote IV 500 mg given Start 250 mg twice daily Depakote level tomorrow morning Dr. Franco neurologist will see her in the morning as well Neurologist recommended avoiding IV ketorolac and Imitrex for now because of recent stroke Patient is full code Soft mechanical diet Continue PT OT ST Family is wanting to pursue discharge home with outpatient physical therapy, Unstable angina Echo unremarkable Stress test today No signs of aortic dissection No signs of PE Postmenopausal symptoms: Patient is stating that she has family history of menopause at age 42 Attestations Medical Necessity Statement*: Continue medical management, she can transfer out of ICU Diagnoses Facial flushing R23.2 Migraine G43.909 Angina at rest I20.8 Acute ischemic left middle cerebral artery (MCA) stroke I63.512 Hypertensive urgency I16.0 Sinus tachycardia R00.0 Cerebrovascular accident I63.9 CVA mechanism: unspecified
--- NOTE | 2023-03-03 11:45 | CT_ITS ---
WS: [id number] CT HEAD TECHNIQUE: Noncontrast CT of the head obtained from the skullbase to the vertex. CLINICAL INFORMATION: SYMPTOMS OF ACUTE STROKE COMPARISON: MRI March 02, [address] March 01, 2023 DLP: [id number] scans at [facility] use at least one of these dose optimization techniques: automated e xposure control; mA and/or kV adjustment per patient size (includes targeted exams where dose is matc hed to clinical indication); or iterative reconstruction. FINDINGS: No evidence of intracranial hemorrhage or mass effect. Ventricular system and basal cisterns are adams nt. No extra-axial fluid collections. No evidence of mass or mass effect. Normal aparicio-white differen tiation. Paranasal sinuses and mastoid air cells are well aerated. .Normal visualized soft tissues. CT/CT head thrombolytic [id number] IMPRESSION: 1. No evidence of intracranial hemorrhage or mass effect. 2. No acute intracranial findings. Notified Law Barroso MD at 03/03/2023 11:57 AM.
[2023-03-03 11:50] LABS: Glucose Point of Care 85 mg/dL (70-110)
--- NOTE | 2023-03-03 11:52 | PC.OT ---
OT EVALUATION ATTEMPTED AT 1100; PATIENT OFF UNIT TO [employer] [facility]. WILL ATTEMPT AGAIN AT A LATER TIME.
--- NOTE | 2023-03-03 12:33 | MR_ITS ---
WS: [id number] MRI CERVICAL SPINE NONCONTRAST HISTORY: Headache COMPARISON: Prior MRI 03/02/2023 of the brain. Technique: Multiplanar, multisequence noncontrast imaging of the cervical spine. Normal cervical alignment with no compression fracture or significant disc space narrowing. Signal within the cervical cord is normal. Visualized posterior fossa is unremarkable. Craniocervical junction, C1 and C2 relationship, odontoid process and soft tissues are normal. C2-C3: Normal. C3-C4: Normal. C4-C5: Normal. C5-C6: Mild osteophytic ridging. No significant stenosis. C6-C7: Mild osteophytic ridging moderate sized RIGHT foraminal disc osteophyte. Disc osteophyte is di splacing the exiting nerve roots and causing moderate stenosis. No central stenosis. C7-T1: Normal. Paraspinal soft tissue are normal. MR/MR cervical spin wo con* [id number] IMPRESSION: 1. Disc osteophyte complex RIGHT foramen C6-7. Resulting in moderate RIGHT for aminal stenosis. 2. Minimal osteophytic ridging at C5-6 without stenosis. 3. No signal abnormality within the cord.
--- NOTE | 2023-03-03 12:39 | P.PN_ITS ---
Subjective Subjective: 42-year-old female with a history of migraine headaches. The patient was admitted on 03/01/2023 secondary to left MCA distribution stroke symptoms manifested as nonfluent aphasia, right-sided weakness and numbness associated with left occipital headaches with radiation to the right occipital region. tPA was administered and the patient was admitted to the intensive care unit. The patient was reported to be stable with an NIH score =0. Today the patient was undergoing a stress test and was reported to experience increasing right-sided weakness with nonfluent aphasia and increasing pain in the left occipital region with radiation to the right occipital region associated with scalp tenderness and elevated blood pressure. Stat noncontrast head CT was obtained on 03/03/2023 and was unrevealing. Previous imaging studies consisted of head MRI on 03/02/2023, CT angiogram of the head and neck 03/01/[address] on 03/02/2023. All of the studies were reported to be negative for any acute findings. Code stroke was initiated today at 11:39 AM today. I arrived around 11:05 AM today when the patient was being removed from the CT scanner to be transported back to ICU bed 12. On clinical examination patient was complaining of left occipital pain with radiation to the right occipital region with tenderness to palpation in the occipital region. There was no sign of any swelling or infection. Patient denied any significant neck tenderness. The patient was displaying nonfluent aphasia with some right upper extremity weakness at approximately 4/5 strength. Patient was able to hold up the right arm against gravity although she displayed a drift in the right upper extremity. Right lower extremity was 5/5. Patient was also displaying right upper and right lower facial weakness, ptosis of the right eyelid and questionable left MATHEUS and deviation of her tongue to the left suggestive of left cranial nerve involvement. NIH score =7. The patient was alert and was able to follow commands. I recommended starting IV Depacon 500 mg IV load x1 dose followed by 250 mg IV twice a day for occipital head pain with trough Depakote level on 03/04/2023. Also I recommended increasing gabapentin to 300 mg p.o. 3 times daily for occipital pain. The patient's nurse, Heather was at the bedside and put in the orders. Lab orders for Leiden factor V and prothrombin gene were also ordered on blood work obtained prior to the patient obtaining the tPA on admission. I also recommended IV normal saline at 75 cc/h for hydration. And I spoke with the attending physician about ordering a cervical MRI to assess for the possibility of a syrinx in the cervical cord. Past medical history: Migraine headaches Right knee surgery Status post tubal ligation Hypertension Appendectomy Drug allergies: Codeine which resulted in nausea and vomiting Iodine which resulted in anaphylaxis Latex which resulted in a rash Shellfish which resulted in anaphylaxis Habits: None Review of systems: Occipital pain described as sharp with tenderness to palpation, constant and severe, speech difficulty, right facial weakness (upper and lower face), ptosis of the right eyelid, tongue deviation to the left, and difficulty looking to the right, episodic right-sided numbness and right arm and right leg weakness and episodes of elevated blood pressure. Vitals/I&O/Wt Last Vital Signs Temp 98 F 03/03/23 05:30 Pulse 82 03/03/23 10:30 Resp 14 03/03/23 10:30 BP 124/79 03/03/23 08:30 Pulse Ox 99 03/03/23 10:30 O2 Del Method Room Air 03/03/23 10:02 O2 Flow Rate 2 03/03/23 02:00 03/02/23 03/03/23 03/03/23 22:59 06:59 14:59 Intake Total 1240 / 1240 480 / 1720 Output Total 275 / 275 Balance 1240 / 1240 205 / 1445 Weight last 48 hrs Weight 225 lb 8 oz Weight 225 lb 8 oz Weight 242 lb Physical Exam Narrative: Blood pressure currently 132/82. NIH score =7 The patient is alert and oriented x3. Speech reveals nonfluent aphasia with some dysarthria. Head normocephalic with tenderness to palpation in the left occipital and right occipital region. There was no signs of any swelling or infection. Neck supple. Cranial nerves II through XII revealed right cranial nerve III weakness manifested as ptosis of the right eyelid, questionable left MATHEUS, right cranial nerve palsy, right upper and lower cranial nerve VII weakness, and left cranial nerve XII weakness with deviation of her tongue to the left. Gag reflex was intact. And patient had bilateral elevation of her palate. Sensory examination was intact in her face in a V1 to V3 distribution. Patient able to see objects and denied any obvious visual field deficits. There were no nystagmus on attempted lateral deviation of eyes to the right. Pupils 4 mm. Pupils round equal and reactive to light and accommodation. Motor testing revealed a questionable drift in the right upper extremity. Patient was able to hold her right arm up against gravity and with some resistance. Motor testing was approximately 4/5 in the right upper extremity and 5/5 in all of her other extremities including the right lower extremity. Deep tendon reflexes grossly symmetrical plantar responses flexor bilaterally. There was no clonus. Sensory examination was intact to touch. There was no extinction on double sensory stimulation. The patient displayed some questionable clumsiness of the right arm which appeared to improve with repeat testing. Her speech also seemed to improve somewhat during this neurological assessment. Throat clear. Lungs rosangela r. Heart regular rhythm and rate. Extremities were negative for clubbing cyanosis or edema. Urinary Catheter Management: Rahman: Cath Placed During This Visit: yes Reason for Continuing Indwelling Catheter: Accurate Measurement of Urinary Output in Critically Ill Patients Urinary Catheter Date of Insertion: 03/01/23 Data 03/03/23 03:39 03/03/23 03:39 A&P Assessment and plan (1) Occipital pain: (2) Acute ischemic left middle cerebral artery (MCA) stroke: (3) Posterior circulation stroke: (4) Migraine: (5) Recurrent occipital headache: Plan Assessment: 1. Code stroke manifested as increasing nonfluent aphasia and dysarthria associated with right cranial nerve III weakness manifested as ptosis, questionable left MATHEUS, difficulty with right cranial nerve lateral gaze, right upper and lower facial weakness, left cranial nerve XII weakness with deviation of the tongue to the left and right upper extremity weakness at approximately 4/5 strength. (Note: CT angiogram of the head and neck, head MRI, and repeat noncontrast head CT negative for acute findings) 2. Left MCA distribution stroke symptoms, patient's status post tPA administration on 03/01/2023 3. Bilateral occipital pain left side greater than right 4. Hypertension Plan: 1. Follow-up results of protein S and protein C hypercoagulable lab 2. Add prothrombin gene and Leiden factor V to blood work obtained prior to the patient receiving tPA on 03/01/2023 3. IV Depacon 500 mg IV load followed by 250 mg IV twice a day for occipital head pain 4. Trough Depakote level on 03/04/2023 5. Increase gabapentin to 300 mg p.o. 3 times daily for occipital pain 6. Recommend obtaining cervical MRI to assess for syrinx 7. IV normal saline at 75 cc/h for hydration 8. Discontinue Effexor secondary to lack of benefit with regards to occipital pain 9. Do not administer nonsteroidal anti-inflammatory medications since these type of medication have been reported to be associated with increased risk for heart disease and strokes. 10. We will consider topical lidocaine for occipital pain 11. We will continue to follow Attestations Medical Necessity Statement*: Patient was evaluated by neurology secondary to code stroke Critical Care Time: 45 minutes obtaining the patient's history, evaluating the patient, and reviewing patient's lab and imaging studies at the patient's bedside and speaking with the patient's nurse who was also at the bedside regarding orders and treatment plan and informing the patient of the treatment plan. Coding Level of Care Code 98884 Diagnoses Occipital pain R51.9 Acute ischemic left middle cerebral artery (MCA) stroke I63.512 Posterior circulation stroke I63.50 Migraine G43.909 Recurrent occipital headache R51.9 Time Spent (min) 45
--- NOTE | 2023-03-03 12:41 | PC.SLP ---
Patient's medical status continues to vary and nursing has requested that patient not be seen for today.
--- NOTE | 2023-03-03 13:28 | SUR.PREOP ---
Stress postponed Stress test postponed till tomorrow pending stroke evaluation. To resume as stress only tomorrow.
--- NOTE | 2023-03-03 13:54 | ECG_ITS ---
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 Measurements Intervals [place] Rate: 73 P: 28 IA: 152 QRS: 51 QRSD: 104 T: 46 QT: 390 QTc: 430 Interpretive Statements SINUS RHYTHM WITH SINUS ARRHYTHMIA Compared to ECG 03/02/2023 21:52:43 T-wave abnormality no longer present Electronically Signed On 03-03-2023 16:59:36 CDT by Chip Webb M.D. [id number]
[2023-03-03] MEDS: valproic acid inj 500 MG in sodium chloride 0.9% 50 ML 55 MG IV (14:50)
[2023-03-03] MEDS: TRAMadol 50 mg Tablet PO ×2 (15:44→21:52)
[2023-03-03] MEDS: gabapentin 300 mg Capsule PO ×2 (15:44→20:53)
[2023-03-03] MEDS: divalproex DR 250 mg Tablet PO (18:03)
[2023-03-03] MEDS: spironolactone 25 mg Tablet PO (18:03)
[2023-03-04] VITALS (12 sets, daily range): BP systolic 94–131; BP diastolic 67–82; PULSE 76–120; RESP 10–20; TEMP 36.6; O2SAT 92–100
[2023-03-04 03:56] LABS: Valproic Acid Level 18.1 ug/mL (50-100)
[2023-03-04] MEDS: TRAMadol 50 mg Tablet PO ×3 (04:38→19:20)
--- NOTE | 2023-03-04 06:33 | PC.NURSE ---
Spoke with regarding the patients stress test, if the patient still needs it. said yes they still need to have the stress test. Nurse will call and make Radiology aware.
--- NOTE | 2023-03-04 08:08 | MR_ITS ---
WS: [id number] MR VENOGRAPHY HEAD 3-D noncontrast imaging performed through the cerebral veins. All imaging is reviewed. HISTORY: headache COMPARISON: Prior CTA reviewed 03/01/2023. Good demonstration of the dural venous sinuses and cerebral veins. No filling defects in the superior sagittal sinus. Small caliber and asymmetric transverse sinuses is a normal variant. Similar to 03/01/2023. Sigmoid sinuses and jugular veins are also asymmetric and gr eatest on the RIGHT. Straight sinus is [place]. MR/[place] [id number] IMPRESSION: Asymmetric dural venous sinuses, RIGHT more dominant than the LEFT. Normal vari ant. No definite thrombosis is identified.
[2023-03-04] MEDS: sennosides-docusate Tablet 1 TAB PO (09:05)
[2023-03-04] MEDS: divalproex DR 250 mg Tablet PO ×3 (09:05→20:50)
[2023-03-04] MEDS: gabapentin 300 mg Capsule PO ×3 (09:06→20:50)
[2023-03-04] MEDS: atorvastatin 40 mg Tablet 80 MG PO (09:07)
--- NOTE | 2023-03-04 09:49 | P.PN_ITS ---
Subjective Subjective: This morning patient stating headache is 4/10 Blood pressure slightly on the lower side Discontinued antihypertensive regimen May start IV fluids We will request MRV to rule out cerebral venous thrombosis Conducted family meeting Vitals/I&O/Wt Last Vital Signs Temp 99.6 F 03/03/23 19:21 Pulse 98 03/04/23 09:14 Resp 10 L 03/04/23 09:14 BP 94/67 03/04/23 09:14 Pulse Ox 100 03/04/23 07:41 O2 Del Method Room Air 03/04/23 07:41 O2 Flow Rate 2 03/03/23 02:00 03/03/23 03/04/23 03/04/23 22:59 06:59 14:59 Intake Total 295 / 775 240 / 1015 Output Total 700 / 975 100 / 1075 Balance -405 / -200 140 / -60 Physical Exam Narrative: Right-sided hemianopsia Facial asymmetry right-sided facial droop Right leg weakness is improving Right arm weakness has not shown significant improvement since admission Abdomen soft S1, S2 Sinus rhythm Abdomen soft No new focal deficit Family is at the bedside Urinary Catheter Management: Rahman: Cath Placed During This Visit: yes Reason for Continuing Indwelling Catheter: Acute Urinary Retention or Obstruction Urinary Catheter Date of Insertion: 03/01/23 Data 03/03/23 03:39 03/03/23 03:39 A&P Assessment and plan (1) Recurrent occipital headache: (2) Posterior circulation stroke: (3) Acute ischemic multifocal posterior circulation stroke: (4) Stroke determined by clinical assessment: (5) Occipital pain: (6) Facial flushing: (7) Angina at rest: (8) Acute ischemic left middle cerebral artery (MCA) stroke: (9) Hypertensive urgency: (10) Sinus tachycardia: (11) Cerebrovascular accident: Qualifiers: CVA mechanism: unspecified Qualified Code(s): I63.9 - Cerebral infarction, unspecified Plan Acute CVA Status post tPA MRI CT head and neck unremarkable Rule out cerebral venous thrombosis with MRV today Patient is complaining of persistent headache 4/10 Depakote added and dose changed as per Dr. Leal Gabapentin added MRI cervical spine area showing osteophytes, osteoarthritis Patient complained of chest pain, she will finish stress part of her stress test today echo unremarkable no active chest pain EKG without ischemic changes Hypertensive emergency: Today blood pressure is on the softer side held antihypertensive regimen gentle fluid hydration for next 6 hours we may discontinue IV fluids around 4 or 5 PM, starting normal saline at 75 mill per hour We will follow-up with 24-hour urine collection for catecholamine quantification Patient is still undergoing work-up. 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 Episodic hypertension and facial flushing: Improved, please note her blood pressure responded very well to the addition of spironolactone Attestations Medical Necessity Statement*: Continue medical management Diagnoses Recurrent occipital headache R51.9 Posterior circulation stroke I63.50 Acute ischemic multifocal posterior circulation stroke I63.539 Stroke determined by clinical assessment I63.9 Occipital pain R51.9 Facial flushing R23.2 Angina at rest I20.8 Acute ischemic left middle cerebral artery (MCA) stroke I63.512 Hypertensive urgency I16.0 Sinus tachycardia R00.0 Cerebrovascular accident I63.9 CVA mechanism: unspecified
[2023-03-04] MEDS: sodium chloride 0.9% 1,000 ML 75 ML IV (10:36)
[2023-03-04] MEDS: acetaminophen 500 mg Tablet PO (10:36)
[2023-03-04] MEDS: regadenoson 0.4 Mg/5 ml Syringe IVP (10:52)
--- NOTE | 2023-03-04 12:12 | P.PN_ITS ---
Subjective Subjective: 42-year-old female with history of migraine headaches. Patient was admitted on 03/01/2023 with symptoms suggestive of left MCA distribution strokes. Patient was evaluated by Dr. Joyce and was given tPA and admitted to the intensive care unit. Code stroke was initiated on 03/03/2023. Therefore, I was contacted to reevaluate the patient while she was undergoing a nuclear medicine stress test. On examination on 03/03/2023 the patient was complaining of nonfluent aphasia and right upper and lower facial weakness and difficulty opening her right eye as well as deviation of her tongue to the left and difficulty with right lateral gaze with the left eye and right eye. Repeat head CT on 03/03/2023 was unremarkable. Patient had previously undergone head MRI, CT angiogram of the head and neck which were unrevealing. Since the patient had already undergone tPA administration on 03/01/2023 she was not a candidate for any repeat tPA and the possibility of hemiplegic migraines could not be excluded. The patient was started on IV Depacon. Patient was given 500 mg IV load followed by 250 mg IV twice a day and her gabapentin was increased to 300 mg p.o. 3 times daily. This morning the patient is doing better but some dysarthria and hesitation of her speech. Her right-sided weakness is improved and she is able to elevate her arm off of the bed against gravity. There is no right lower extremity weakness. Patient continues to have some questionable weakness of the right face and ptosi s of the right eyelid although improved since yesterday. Patient reports that the Depakote did help her headaches and decrease the intensity from a 10 down to a 4 although she is continue to complain of the occipital pain. In order to rule out the possibility of a cervical syrinx a cervical MRI was ordered. The cervical MRI was obtained and revealed: 1.? Disc osteophyte complex RIGHT foramen C6-7. Resulting in moderate RIGHT foraminal stenosis. 2.? Minimal osteophytic ridging at C5-6 without stenosis. 3.? No signal abnormality within the cord. MR venogram was also ordered to assess for sinus thrombosis. This study was performed on 03/04/2023 and was negative for thrombosis. Past medical history: Migraine headaches Right knee surgery Status post tubal ligation Hypertension Appendectomy Drug allergies: Codeine which resulted in nausea and vomiting Iodine which resulted in anaphylaxis Latex which resulted in a rash Shellfish which resulted in anaphylaxis Habits: None Review of systems: Occipital headaches, right facial weakness, right arm weakness, speech difficulty described as labored speech. Patient denies chest pain, shortness of breath abdominal pain, nausea, vomiting, or extremity swelling. Patient denies rash, fever, chills or neck stiffness. Vitals/I&O/Wt Last Vital Signs Temp 99.6 F 03/03/23 19:21 Pulse 111 H 03/04/23 11:16 Resp 10 L 03/04/23 09:14 BP 121/72 03/04/23 11:16 Pulse Ox 100 03/04/23 07:41 O2 Del Method Room Air 03/04/23 07:41 O2 Flow Rate 2 03/03/23 02:00 03/03/23 03/04/23 03/04/23 22:59 06:59 14:59 Intake Total 295 / 775 240 / 1015 Output Total 700 / 975 100 / 1075 Balance -405 / -200 140 / -60 Physical Exam Narrative: The patient is currently alert she is oriented x3. Her speech is still labored but improved since 03/03/2023. Neck supple. Cranial nerves II through XII: Patient displaying ptosis of the right eyelid but improved since 03/03/2023, right upper and lower facial weakness. And patient reporting decreased right lateral gaze in both eyes. Other cranial nerves intact. Motor testing 5/5 except for 4/5 right upper extremity. Deep tendon reflexes grossly symmetrical. Sensory examination intact to touch. Throat clear. Lungs clear. Heart regular rhythm and rate. Extremities were negative for clubbing or cyanosis Urinary Catheter Management: Rahman: Cath Placed During This Visit: yes Reason for Continuing Indwelling Catheter: Acute Urinary Retention or Obstruction Urinary Catheter Date of Insertion: 03/01/23 Data 03/03/23 03:39 03/03/23 03:39 A&P Assessment and plan (1) Recurrent occipital headache: (2) Acute ischemic left middle cerebral artery (MCA) stroke: Plan Assessment: Assessment: 1.? Code stroke on 03/03/2023 manifested as increasing nonfluent aphasia and dysarthria associated with right cranial nerve III weakness manifested as ptosis, questionable left MATHEUS, difficulty with right cranial nerve lateral gaze, right upper and lower facial weakness, left cranial nerve XII weakness with deviation of the tongue to the left and right upper extremity weakness at approximately 4/5 strength. (Note: CT angiogram of the head and neck, head MRI, and repeat noncontrast head CT negative for acute findings) 2.? Left MCA distribution stroke symptoms, patient's status post tPA administration on 03/01/2023 3.? Bilateral occipital pain left side greater than right, improved since starting IV Depacon and increasing gabapentin 4.? Hypertension 5. Disc osteophyte complex RIGHT foramen C6-7. Resulting in moderate RIGHT foraminal stenosis. Plan: 1.? Follow-up results of protein S and protein C, Leiden factor V and prothrombin gene 2.? Increase IV Depacon to 250 mg IV 3 times a day for occipital headache pain 3.? Continue gabapentin to 300 mg p.o. 3 times daily for occipital pain 4. Continue IV normal saline at 75 cc/h for hydration 5.? Effexor was discontinued on secondary to lack of benefit with regards to occipital pain 6.? Do not administer nonsteroidal anti-inflammatory medications since these type of medication have been reported to be associated with increased risk for heart disease and strokes. 7.? We will consider topical lidocaine for occipital pain 8.? We will continue to follow 9. Repeat trough Depakote level on 03/06/2023 Attestations Medical Necessity Statement*: Patient seen by neurology secondary to code stroke and occipital headaches and history of tPA administration 03/01/2023 Coding Level of Care Code 84988 Diagnoses Recurrent occipital headache R51.9 Acute ischemic left middle cerebral artery (MCA) stroke I63.512
--- NOTE | 2023-03-04 15:06 | PC.NURSE ---
Noted Positional tachycardia when patient sits up in bed from laying position HR- from 110s to 130s, Sinus Tachycardia. Her right eye then droop, speech is delayed and she reports of sharp and throbbing pain on her neck up to head. HR then starts to go down to low 100s. Another episode happen again with PT exercises. Patient and parents at bedside are concerned of her going home soon. Hospitalist notified.
[2023-03-04] MEDS: lanolin oint 7 gm 1 APPLIC TOPICAL (15:14)
[2023-03-04 16:04] LABS: Anti-Nuclear Antibody Screen NEGATIVE (NEGATIVE)
--- NOTE | 2023-03-04 17:22 | PC.NURSE ---
patient has been requesting ice packs to put on her neck and back head off and on today. she stated it helps relieve the pain.
[2023-03-05] VITALS (13 sets, daily range): BP systolic 101–142; BP diastolic 65–95; PULSE 65–110; RESP 12–26; TEMP 36.6–37.4; O2SAT 92–99
[2023-03-05] MEDS: TRAMadol 50 mg Tablet PO (03:40)
--- NOTE | 2023-03-05 08:32 | P.PN_ITS ---
Subjective Subjective: 42-year-old female with history of migraine headaches.? Patient was admitted on 03/01/2023 with symptoms suggestive of left MCA distribution strokes.? Patient was evaluated by Dr. Joyce and was given tPA and admitted to the intensive care unit.? Code stroke was initiated on 03/03/2023.? Therefore, I was contacted to reevaluate the patient while she was undergoing a nuclear medicine stress test.? On examination on 03/03/2023 the patient was complaining of nonfluent aphasia and right upper and lower facial weakness and difficulty opening her right eye as well as deviation of her tongue to the left and difficulty with right lateral gaze with the left eye and right eye.? Repeat head CT on 03/03/2023 was unremarkable.? Patient had previously undergone head MRI, CT angiogram of the head and neck which were unrevealing.? Since the patient had already undergone tPA administration on 03/01/2023 she was not a candidate for any repeat tPA and the possibility of hemiplegic migraines could not be excluded.? The patient was started on IV Depacon.? Patient was given 500 mg IV load followed by 250 mg IV twice a day and her gabapentin was increased to 300 mg p.o. 3 times daily.? This morning the patient is doing better but some dysarthria and hesitation of her speech.? Her right-sided weakness is improved and she is able to elevate her arm off of the bed against gravity.? There is no right lower extremity weakness.? Patient continues to have some questionable weakness of the right face and ptosi s of the right eyelid although improved since yesterday.? The patient reports that the Depakote is helping with her headaches and decrease the intensity from a 10 down to a 4 although she is continue to complain of the occipital pain.? The patient denied any benefit from the gabapentin. In order to rule out the possibility of a cervical syrinx a cervical MRI was performed. The cervical MRI did not reveal any significant findings except for some foraminal stenosis on the right at C5-C6 reported to be moderate in degree. MRV of the brain was negative for sinus thrombosis. I informed the patient I will obtain a trough Depakote level this morning to determine if I can increase her Depakote IV and I recommended discontinuing gabapentin since the patient denied any benefit from the medication. The patient will also be started on Zanaflex 4 mg p.o. 3 times daily for occipital headaches. Past medical history: Migraine headaches Right knee surgery Status post tubal ligation Hypertension Appendectomy Drug allergies: Codeine which resulted in nausea and vomiting Iodine which resulted in anaphylaxis Latex which resulted in a rash Shellfish which resulted in anaphylaxis Habits: None Review of systems: Occipital headaches, right facial weakness, right arm weakness,? speech difficulty described as labored speech.? Patient denies chest pain, shortness of breath abdominal pain, nausea, vomiting, or extremity swelling.? Patient denies rash, fever, chills or neck stiffness. Vitals/I&O/Wt Last Vital Signs Temp 97.9 F 03/04/23 19:23 Pulse 66 03/05/23 05:25 Resp 12 03/05/23 03:33 BP 112/77 03/05/23 03:33 Pulse Ox 99 03/05/23 03:33 O2 Del Method Room Air 03/05/23 03:33 O2 Flow Rate 2 03/03/23 02:00 03/04/23 03/05/23 03/05/23 22:59 06:59 14:59 Intake Total 1592.5 / 1952.5 Output Total 1999 850 / 2850 Balance -407.5 / -47.5 -850 / -897.5 Weight last 48 hrs Weight 245 lb 13.047 oz Weight 244 lb 7 oz Physical Exam Narrative: Blood pressure 136/88 heart rate 79 The patient is alert she is oriented x3. Her speech is improved although she continues to display some nonfluent aphasia type speech as well as some stuttering. She is able to follow commands. Cranial nerves II through XII patient continues to display ptosis of the right eyelid but improved since her evaluation yesterday. Extraocular movements intact. Patient able to protrude her tongue. Patient has bilateral elevation of her palate. Right facial weakness improved although still present. Motor testing appears to be 5/5 in all extremities except for 4/5 right upper extremity. Patient has a right upper extremity drift but she is able to continue to hold her arm up against gravity and with some resistance. Deep tendon reflexes symmetrical and plantar responses flexor bilaterally. There is no clonus. Sensory examination intact to gross modalities. Throat clear. Lungs clear. Heart regular rhythm and rate. Extremities were negative for clubbing or cyanosis. Pulses 2-3+ bilaterally Urinary Catheter Management: Rahman: Cath Placed During This Visit: yes Reason for Continuing Indwelling Catheter: Acute Urinary Retention or Obstructi on Urinary Catheter Date of Insertion: 03/01/23 Data 03/03/23 03:39 03/03/23 03:39 A&P Assessment and plan (1) Recurrent occipital headache: (2) Posterior circulation stroke: (3) Acute ischemic left middle cerebral artery (MCA) stroke: (4) Occipital pain: (5) Ptosis, right eyelid: (6) Dysarthria: (7) Difficulty with speech: Plan Assessment: 1.? Code stroke on 03/03/2023 manifested as increasing nonfluent aphasia and dysarthria associated with right cranial nerve III weakness manifested as pto sis, questionable left MATHEUS, difficulty with right cranial nerve lateral gaze, right upper and lower facial weakness, left cranial nerve XII weakness with deviation of the tongue to the left and right upper extremity weakness at approximately 4/5 strength. (Note: CT angiogram of the head and neck, head MRI, and repeat noncontrast head CT negative for acute findings, cervical MRI was unrevealing except for some moderate foraminal stenosis on the right at C6-7 and MRV of the brain was negative for thrombosis) 2.? Left MCA distribution stroke symptoms, patient's status post tPA administration on 03/01/2023 3.? Bilateral occipital pain left side greater than right, improved since starting IV Depacon 4.? 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 Plan: 1.? Follow-up results of protein S and protein C, Leiden factor V and prothrombin gene 2. Trough Depakote level this morning 3.? Continue IV Depacon to 250 mg IV 3 times a day for occipital headache pain and consider increasing the medication once the results of the trough Depakote level from today has been obtained 4.? Discontinue gabapentin since the patient denied any benefit from this medication with regards to her occipital pain 5.? Continue IV normal saline at 75 cc/h for hydration 6.?? Effexor was discontinued on secondary to lack of benefit with regards to occipital pain 7.? Do not administer nonsteroidal anti-inflammatory medications since these type of medication have been reported to be associated with increased risk for heart disease and strokes. 8. Zanaflex 4 mg p.o. 3 times daily for occipital pain 9.? We will consider topical lidocaine for occipital pain 10.? We will continue to follow Attestations Medical Necessity Statement*: Patient seen by neurology for stroke symptoms status post tPA occipital headaches, speech difficulty and ptosis of the right eyelid and right upper extremity weakness Coding Level of Care Code 21278 Diagnoses Recurrent occipital headache R51.9 Posterior circulation stroke I63.50 Acute ischemic left middle cerebral artery (MCA) stroke I63.512 Occipital pain R51.9 Ptosis, right eyelid H02.401 Dysarthria R47.1 Difficulty with speech R47.9
[2023-03-05] MEDS: sennosides-docusate Tablet 1 TAB PO (09:31)
[2023-03-05] MEDS: atorvastatin 40 mg Tablet 80 MG PO (09:31)
--- NOTE | 2023-03-05 10:21 | PM.PN ---
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 diet I will discontinue IV fluids Vitals/I&O/Wt Last Vital Signs Temp 97.9 F 03/05/23 08:00 Pulse 88 03/05/23 08:00 Resp 20 H 03/05/23 08:00 BP 142/95 03/05/23 08:00 Pulse Ox 96 03/05/23 08:00 O2 Del Method Room Air 03/05/23 08:00 O2 Flow Rate 2 03/03/23 02:00 03/04/23 03/05/23 03/05/23 22:59 06:59 14:59 Intake Total 1592.5 / 1952.5 240 / 240 Output Total 1999 / 1999 850 / 2850 600 / 600 Balance -407.5 / -47.5 -850 / -897.5 -360 / -360 Weight last 48 hrs Weight 111.5 kg Weight 110.875 kg Physical Exam Narrative: Right-sided weakness slightly better as compared to yesterday She is able to lift her right arm against gravity, pronator drift negative Right leg strength significantly improved as compared to right arm Patient able to eat with her right hand Right eyelid ptosis present, swelling of eyelid improved Scanning speech slightly better Hemodynamically stable currently on room air family at the bedside Abdomen soft Euvolemic No new focal deficit S1, S2 sinus rhythm Patient doing well on room air Urinary Catheter Management: Rahman: Cath Placed During This Visit: yes Reason for Continuing Indwelling Catheter: Acute Urinary Retention or Obstruction Urinary Catheter Date of Insertion: 03/01/23 Data 03/03/23 03:39 03/03/23 03:39 A&P Assessment and plan (1) Difficulty with speech: (2) Dysarthria: (3) Ptosis, right eyelid: (4) Recurrent occipital headache: (5) Acute ischemic multifocal posterior circulation stroke: (6) Stroke determined by clinical assessment: (7) Occipital pain: (8) Facial flushing: (9) Migraine: (10) Angina at rest: (11) Acute ischemic left middle cerebral artery (MCA) stroke: (12) Hypertensive urgency: (13) Sinus tachycardia: (14) Cerebrovascular accident: Qualifiers: CVA mechanism: unspecified Qualified Code(s): I63.9 - Cerebral infarction, unspecified Plan Acute CVA Status post tPA Continue PT OT ST Patient tolerating diet Discontinue IV fluids Headache: Slightly better Dose adjustment of Depakote, tizanidine added We will add lidocaine patch Occipital neuralgia still present however less intensity Hypertension: Improved she did not receive any antihypertensive regimen in last 24 hours, I will continue amlodipine and spironolactone today no need of IV fluids as she is tolerating diet 24-hour urine catecholamine results are pending She is not showing any signs of episodic hypertension facial flushing Chest pain: Negative stress test, Discontinue Rahman catheter Plan for discharge later today versus tomorrow morning Appreciate neuro recommendation Recheck Depakote level tomorrow morning Hypercoagulable work-up results are pending Attestations Medical Necessity Statement*: Discharge tomorrow Diagnoses Difficulty with speech R47.9 Dysarthria R47.1 Ptosis, right eyelid H02.401 Recurrent occipital headache R51.9 Acute ischemic multifocal posterior circulation stroke I63.539 Stroke determined by clinical assessment I63.9 Occipital pain R51.9 Facial flushing R23.2 Migraine G43.909 Angina at rest I20.8 Acute ischemic left middle cerebral artery (MCA) stroke I63.512 Hypertensive urgency I16.0 Sinus tachycardia R00.0 Cerebrovascular accident I63.9 CVA mechanism: unspecified
[2023-03-05 10:22] LABS: Valproic Acid Level 60.1 ug/mL (50-100)
[2023-03-05] MEDS: aspirin 81 mg EC Tablet PO (11:03)
[2023-03-05] MEDS: divalproex DR 250 mg Tablet PO ×3 (11:10→21:31)
--- NOTE | 2023-03-05 13:25 | PC.NURSE ---
Patient's heart rate increases with activity to 130s-140s. Upon ambulating to commode, patient's heart rated did get into the 150's. Patient's primary RN notified. RN will report to the patient's physician.
[2023-03-05] MEDS: metoprolol tartrate 25 mg Tablet PO ×2 (14:03→21:31)
[2023-03-05] MEDS: lidocaine 5% Patch 1 PATCH TOPICAL ×2 (14:20→21:31)
[2023-03-05] MEDS: tizanidine 4 mg Tablet PO (14:20)
--- NOTE | 2023-03-05 16:05 | PC.NURSE ---
Notified Dr. Barroso about patients heart rate. She had been in the 140's - 150's with activity. Dr. Barroso ordered metoprolol 25mg BID. is updated with her rate which is now in the 100's - 120's.
--- NOTE | 2023-03-05 16:32 | PC.NURSE ---
Updated Dr. Barroso with her heart rate of 100's - 120's and her current blood pressure of 126/92. No new orders at this time.
[2023-03-05] MEDS: ondansetron 2 mg/ML SDV 2 mL 4 MG IVP (19:29)
[2023-03-06] VITALS (18 sets, daily range): BP systolic 101–121; BP diastolic 66–81; PULSE 65–98; RESP 15–20; TEMP 36.7–36.9; O2SAT 91–98
[2023-03-06] MEDS: metoprolol tartrate 25 mg Tablet PO ×2 (08:49→20:19)
[2023-03-06] MEDS: sennosides-docusate Tablet 1 TAB PO (08:49)
[2023-03-06] MEDS: atorvastatin 40 mg Tablet 80 MG PO (08:49)
[2023-03-06] MEDS: aspirin 81 mg EC Tablet PO (08:49)
--- NOTE | 2023-03-06 08:59 | PC.NURSE ---
Dr. Barroso at bedside to see patient. Verbal order to hold this am's amlodipine and spironolactone given. If patient's BP becomes elevated, he instructed RN to give amlodipine. Will continue to monitor BP and intervene as needed.
--- NOTE | 2023-03-06 09:11 | PM.PN ---
Subjective Subjective: 42-year-old female with history of migraine headaches.? Patient was admitted on 03/01/2023 with symptoms suggestive of left MCA distribution strokes.? Patient was evaluated by Dr. Joyce and was given tPA and admitted to the intensive care unit.? Code stroke was initiated on 03/03/2023.? Therefore, I was contacted to reevaluate the patient while she was undergoing a nuclear medicine stress test.? On examination on 03/03/2023 the patient was complaining of nonfluent aphasia and right upper and lower facial weakness and difficulty opening her right eye as well as deviation of her tongue to the left and difficulty with right lateral gaze with the left eye and right eye.? Repeat head CT on 03/03/2023 was unremarkable.? Patient had previously undergone head MRI, CT angiogram of the head and neck which were unrevealing.? Since the patient had already undergone tPA administration on 03/01/2023 she was not a candidate for any repeat tPA and the possibility of hemiplegic migraines could not be excluded.? The patient was started on IV Depacon.? Patient was given 500 mg IV load followed by 250 mg IV twice a day which was later increased to 250 mg IV 3 times a day and her gabapentin was increased to 300 mg p.o. 3 times daily.? On 03/05/2023 the patient reported feeling better but still complaining of some occipital pain and still displayed right eye ptosis, right upper and lower facial weak, stuttering type nonfluent aphasia and right arm weakness at approximately 4/5 strength. Her extraocular movements were intact. The patient denied any any benefit from the gabapentin. Therefore gabapentin was discontinued and patient was started on Zanaflex 4 mg p.o. 3 times daily for occipital pain and IV Depakote was continued at 250 mg 3 times a day since her trough Depakote level was 60.0 on 03/05/2023. This morning on 03/06/2023 the patient denied any headache. She was still displaying some stuttering but her ptosis was mostly resolved and her right arm weakness was also markedly improved with 5/5 strength in all extremities this morning. Her right facial weakness also was improved. And extraocular movements were intact. Past medical history: Migraine headaches Right knee surgery Status post tubal ligation Hypertension Appendectomy Drug allergies: Codeine which resulted in nausea and vomiting Iodine which resulted in anaphylaxis Latex which resulted in a rash Shellfish which resulted in anaphylaxis Habits: None Review of systems: Patient denied ccipital headaches this morning. She still displayed right facial weakness and stuttering type speech speech difficulty described as labored speech. The patient complained of some right leg heaviness but motor strength was 5/5 bilaterally. Patient denies chest pain, shortness of breath abdominal pain, nausea, vomiting, or extremity swelling.? Patient denies rash, fever, chills or neck stiffness. Vitals/I&O/Wt Last Vital Signs Temp 98.1 F 03/06/23 08:24 Pulse 72 03/06/23 08:24 Resp 15 03/06/23 08:24 BP 114/76 03/06/23 08:24 Pulse Ox 95 03/06/23 08:24 O2 Del Method Room Air 03/06/23 08:24 O2 Flow Rate 2 03/03/23 02:00 03/05/23 03/06/23 03/06/23 22:59 06:59 14:59 Intake Total 1040 / 1640 850 / 2490 425 / 425 Output Total 0 / 725 0 / 0 Balance 1040 / 915 850 / 1765 425 / 425 Weight last 48 hrs Weight 251 lb 5.231 oz Weight 245 lb 13.047 oz Physical Exam Narrative: Vtal signs stable The patient is awake and alert and talking with her family who are at her bedside. The patient denied any headaches this morning and reported marked improvement in her headaches on the IV Depakote. Pupils 4 mm bilaterally. Extraocular movements intact. Cranial nerves II through XII revealed right upper and lower facial weakness but markedly improved. Her ptosis was markedly improved and almost resolved. She continues to display some stuttering type speech. Patient is able to follow commands. Motor testing 5/5 bilaterally. Plantar responses flexor bilaterally. There is no clonus. Sensory examination intact to gross modalities. Throat clear. Heart regular rhythm and rate. Extremities were negative for clubbing or cyanosis. Urinary Catheter Management: Rahman: Cath Placed During This Visit: yes, but has since been removed by the nurse Reason for Continuing Indwelling Catheter: Accurate Measurement of Urinary Output in Critically Ill Patients Urinary Catheter Date of Insertion: 03/01/23 Date Urinary Catheter Removed: 03/05/23 Time Urinary Catheter Discontinued: 11:20 Data 03/03/23 03:39 03/03/23 03:39 A&P Assessment and plan (1) Acute ischemic left middle cerebral artery (MCA) stroke: (2) Posterior circulation stroke: (3) Recurrent occipital headache: (4) Hemiplegic migraine: (5) Ptosis, right eyelid: Plan Assessment: 1.? Code stroke on 03/03/2023 manifested as increasing nonfluent aphasia and dysarthria associated with right cranial nerve III weakness manifested as ptosis, questionable left MATHEUS, difficulty with right cranial nerve lateral gaze, right upper and lower facial weakness, left cranial nerve XII weakness with deviation of the tongue to the left and right upper extremity weakness at approximately 4/5 strength. (Note: CT angiogram of the head and neck, head MRI, and repeat noncontrast head CT negative for acute findings, cervical MRI was unrevealing except for some moderate foraminal stenosis on the right at C6-7 and MRV of the brain was negative for thrombosis), on 03/06/2023 patient has no focal weakness in the upper and lower extremities and there was marked improvement in the patient's right eyelid ptosis and right upper and lower facial weakness and her speech was improved although she continues to display some stuttering type nonfluent aphasia. 2.? Left MCA distribution stroke symptoms, patient's status post tPA administration on 03/01/2023 3.? Bilateral occipital pain left side greater than right, improved since starting IV Depacon and currently stable 4.? 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 Plan: 1.? Follow-up results of protein S and protein C, Leiden factor V and prothrombin gene 2.? Continue Zanaflex 4 mg p.o. 3 times daily 3.? Continue IV Depacon to 250 mg IV 3 times a day for occipital headache pain and consider changing to oral Depakote ER 250 mg p.o. 3 times daily on 03/07/2023 if the patient's occipital headaches remain stable 4.? Discontinued gabapentin on 03/05/2023 since the patient denied any benefit from this medication with regards to her occipital pain 5.? Continue IV normal saline at 75 cc/h for hydration 6.?? Effexor was discontinued on secondary to lack of benefit with regards to occipital pain 7.? Do not administer nonsteroidal anti-inflammatory medications since these type of medication have been reported to be associated with increased risk for heart disease and strokes. 8.? We will continue to follow 9.? We will consider topical or subcutaneous lidocaine/steroids injections for occipital pain if needed ? Attestations Medical Necessity Statement*: The patient was evaluated by neurology secondary to code stroke, occipital headaches, and right-sided weakness and speech difficulty and right eye ptosis Coding Level of Care Code 88664 Diagnoses Acute ischemic left middle cerebral artery (MCA) stroke I63.512 Posterior circulation stroke I63.50 Recurrent occipital headache R51.9 Hemiplegic migraine G43.409 Ptosis, right eyelid H02.401
[2023-03-06] MEDS: divalproex DR 250 mg Tablet PO ×3 (09:37→20:20)
--- NOTE | 2023-03-06 10:08 | PM.PN ---
Subjective Subjective: Stating that her headache is better, Depakote dose was not increased yesterday Depakote levels were therapeutic Patient is endorsing feeling better today She is motivated to go to SNF, she has been accepted at [facility] inpatient rehab in [place] Awaiting prior Auth It might happen later today versus tomorrow morning assessment manager updated Blood pressure is better Heart rate improved as well She is not tachycardic with metoprolol I have asked nurse to give her metoprolol first and if she is still hypertensive and I will add other heart hypertensive regimen amlodipine versus spironolactone Vitals/I&O/Wt Last Vital Signs Temp 98.1 F 03/06/23 08:24 Pulse 72 03/06/23 08:24 Resp 15 03/06/23 08:24 BP 114/76 03/06/23 08:24 Pulse Ox 95 03/06/23 08:24 O2 Del Method Room Air 03/06/23 08:24 O2 Flow Rate 2 03/03/23 02:00 03/05/23 03/06/23 03/06/23 22:59 06:59 14:59 Intake Total 1040 / 1640 850 / 2490 425 / 425 Output Total 0 / 725 0 / 0 Balance 1040 / 915 850 / 1765 425 / 425 Weight last 48 hrs Weight 114 kg Weight 111.5 kg Physical Exam Narrative: Right-sided facial droop improving She is able to frown obvious wrinkles noted on right side of her forehead Significant movement of right lower extremity weakness Right arm weakness present, weak handgrip as compared to left, blood pressure and heart rate has improved Abdomen soft Awake and alert No new focal deficit noted No active complaints No headache today Right eyelid ptosis improving S1, S2 Doing well on room air Urinary Catheter Management: Rahman: Cath Placed During This Visit: yes, but has since been removed by the nurse Reason for Continuing Indwelling Catheter: Accurate Measurement of Urinary Output in Critically Ill Patients Urinary Catheter Date of Insertion: 03/01/23 Date Urinary Catheter Removed: 03/05/23 Time Urinary Catheter Discontinued: 11:20 Data 03/03/23 03:39 03/03/23 03:39 A&P Assessment and plan (1) Hemiplegic migraine: (2) Difficulty with speech: (3) Dysarthria: (4) Ptosis, right eyelid: (5) Recurrent occipital headache: (6) Stroke determined by clinical assessment: (7) Occipital pain: (8) Facial flushing: (9) Migraine: (10) Angina at rest: (11) Acute ischemic left middle cerebral artery (MCA) stroke: (12) Hypertensive urgency: (13) Sinus tachycardia: (14) Cerebrovascular accident: Qualifiers: CVA mechanism: unspecified Qualified Code(s): I63.9 - Cerebral infarction, unspecified Plan Migraine related hemiplegia Symptoms improving Occipital headache improved with Depakote MRI MRV unremarkable Patient has remained in sinus rhythm Patient received tPA for her hemiplegia at the time of arrival Occipital neuralgia Patient was monitored Depakote as well, cervical MRI did show osteoarthritis with osteophytes without cord compression symptoms no signs of syrinx Chest discomfort with hypertension Chest pain radiating towards her shoulder blades Signs of aortic dissection Echo unremarkable Stress test negative Patient was complaining of chest pain that was stress test was pursued Postural tachycardia without orthostasis Her tachycardia improved with addition of metoprolol Essential hypertension Patient diastolic blood pressure was above 120s required multiple doses of IV labetalol I was able to control blood pressure with addition of spironolactone and amlodipine however that was put on hold and her blood pressure has been stable around 110s to 120s millimeters mercury, she was complaining of facial flushing with episodic hypotension I requested 24-hour urine 5-hydroxyindoleacetic acid and metanephrines which are pending I do not think she has any pheochromocytoma or carcinoid syndrome Sinus tachycardia: Improved with addition of metoprolol No signs of PE Responded to IV fluids as well Patient will continue PT/OT/ST at [facility] inpatient rehab Awaiting prior authorization she has been accepted Family is pleased with her progress I have counseled them regarding migraine related hemiplegia, she does not have typical stroke related features, if with her improvement hemiplegia and dysarthria improved that would prove a diagnosis of migraine/complex/atypical pattern Full code Depakote level subtherapeutic We will touch base with neurology for Depakote dosage at the time of discharge, I will call Dr. Leal today Attestations Medical Necessity Statement*: Anticipating discharge later today versus tomorrow morning to inpatient rehab Diagnoses Hemiplegic migraine G43.409 Difficulty with speech R47.9 Dysarthria R47.1 Ptosis, right eyelid H02.401 Recurrent occipital headache R51.9 Stroke determined by clinical assessment I63.9 Occipital pain R51.9 Facial flushing R23.2 Migraine G43.909 Angina at rest I20.8 Acute ischemic left middle cerebral artery (MCA) stroke I63.512 Hypertensive urgency I16.0 Sinus tachycardia R00.0 Cerebrovascular accident I63.9 CVA mechanism: unspecified
--- NOTE | 2023-03-06 12:43 | PC.OT ---
OT tx attempted 2x this a.m. First time pt working with speech therapist and second time pt reports headache with vomiting and requests therapist try again later today. Therapist to attempt again around 1500 to allow pt time to rest.
[2023-03-06] MEDS: tizanidine 4 mg Tablet PO (16:21)
[2023-03-06] MEDS: metoclopramide 5 mg/mL SDV 2 mL IVP (16:21)
[2023-03-06] MEDS: lidocaine 5% Patch 1 PATCH TOPICAL (20:20)
[2023-03-07] VITALS (18 sets, daily range): BP systolic 109–135; BP diastolic 69–93; PULSE 57–90; RESP 13–25; TEMP 36.4–37.1; O2SAT 93–100
[2023-03-07] MEDS: sennosides-docusate Tablet 1 TAB PO (08:09)
[2023-03-07] MEDS: amlodipine 10 mg Tablet PO (08:09)
[2023-03-07] MEDS: aspirin 81 mg EC Tablet PO (08:09)
[2023-03-07] MEDS: metoprolol tartrate 25 mg Tablet PO ×2 (08:09→21:40)
[2023-03-07] MEDS: atorvastatin 40 mg Tablet 80 MG PO (08:09)
[2023-03-07] MEDS: divalproex DR 250 mg Tablet PO (08:09)
--- NOTE | 2023-03-07 09:49 | PM.PN ---
Subjective Subjective: 42-year-old female with history of migraine headaches.? Patient was admitted on 03/01/2023 with symptoms suggestive of left MCA distribution strokes.? Patient was evaluated by Dr. Joyce and was given tPA and admitted to the intensive care unit.? Code stroke was initiated on 03/03/2023.? Therefore, I was contacted to reevaluate the patient while she was undergoing a nuclear medicine stress test.? On examination on 03/03/2023 the patient was complaining of nonfluent aphasia and right upper and lower facial weakness and difficulty opening her right eye as well as deviation of her tongue to the left and difficulty with right lateral gaze with the left eye and right eye.? Repeat head CT on 03/03/2023 was unremarkable.? Patient had previously undergone head MRI, CT angiogram of the head and neck which were unrevealing.? Since the patient had already undergone tPA administration on 03/01/2023 she was not a candidate for any repeat tPA and the possibility of hemiplegic migraines could not be excluded.? The patient was started on IV Depacon.? Patient was given 500 mg IV load followed by 250 mg IV twice a day which was later increased to 250 mg IV 3 times a day and her gabapentin was increased to 300 mg p.o. 3 times daily.? On 03/05/2023 the patient reported feeling better but still complaining of some occipital pain and still displayed right eye ptosis, right upper and lower facial weak, stuttering type nonfluent aphasia and right arm weakness at approximately 4/5 strength.? Her extraocular movements were intact.? The patient denied any any benefit from the gabapentin.? Therefore gabapentin was discontinued and patient was started on Zanaflex 4 mg p.o. 3 times daily for occipital pain and IV Depakote was continued at 250 mg 3 times a day since her trough Depakote level was 60.0 on 03/05/2023.? On the morning of 03/06/2023 the patient denied any headache.? She was still displaying some stuttering but her ptosis was mostly resolved and her right arm weakness was also markedly improved with 5/5 strength in all extremities this morning.? Her right facial weakness also was improved and her extraocular movements were intact. I recommended the patient start oral Depakote to see if oral Depakote would keep her occipital headache pain stable. This morning on 03/07/2023 the patient reported recurrent intermittent occipital pain. I spoke with the nurse caring for the patient this morning. The nurse informed me that he had given the patient 250 mg of Depakote ER orally earlier this morning. Therefore I restarted IV Depacon 250 mg IV 3 times a day (first dose now) to hopefully abort the patient's recurrent occipital pain and I ordered a trough Depakote level for 03/08/2023. I continued Zanaflex 4 mg p.o. 3 times a day. If the patient patient's headache stabilized, I will retry oral Depakote on 03/08/2023 at a higher dose once the results of the patient's Depakote level is evaluated on 03/08/2023. Past medical history: Migraine headaches Right knee surgery Status post tubal ligation Hypertension Appendectomy Drug allergies: Codeine which resulted in nausea and vomiting Iodine which resulted in anaphylaxis Latex which resulted in a rash Shellfish which resulted in anaphylaxis Habits:None Review of systems: Patient reported recurrent intermittent occipital headaches this morning.? She still displayed right facial weakness and stuttering type speech speech difficulty described as labored speech.? The patient complained of some right leg heaviness but motor strength was 5/5 bilaterally.? Patient denies chest pain, shortness of breath abdominal pain, nausea, vomiting, or extremity swelling.? Patient denies rash, fever, chills or neck stiffness. Vitals/I&O/Wt Last Vital Signs Temp 98.7 F 03/07/23 07:54 Pulse 71 03/07/23 09:20 Resp 16 03/07/23 09:20 BP 135/89 03/07/23 07:54 Pulse Ox 97 03/07/23 09:20 O2 Del Method Room Air 03/07/23 09:20 O2 Flow Rate 2 03/03/23 02:00 03/06/23 03/07/23 03/07/23 22:59 06:59 14:59 Intake Total 120 / 970 120 / 1090 120 / 120 Output Total 450 / 1405 Balance -330 / -435 120 / -315 120 / 120 Weight last 48 hrs Weight 251 lb 5.231 oz Physical Exam Narrative: Vital signs stable The patient is awake and alert and her speech has improved although she continues to display some stuttering type speech.? The patient reported that since discontinuing the IV Depacon and starting oral Depakote she has been experiencing intermittent occipital headaches this morning. Pupils 4 mm bilaterally.? Extraocular movements intact.? Cranial nerves II through XII revealed right upper and lower facial weakness but markedly improved.? Her ptosis was markedly improved and almost resolved.? She continues to display some stuttering type speech.? Patient is able to follow commands.? Motor testing is 5/5 bilaterally.? Plantar responses flexor bilaterally.? There is no clonus.? Sensory examination intact to gross modalities.? Throat clear.? Heart regular rhythm and rate.? Extremities were negative for clubbing or cyanosis. Urinary Catheter Management: Rahman: Cath Placed During This Visit: yes, but has since been removed by the nurse Reason for Continuing Indwelling Catheter: Accurate Measurement of Urinary Output in Critically Ill Patients Urinary Catheter Date of Insertion: 03/01/23 Date Urinary Catheter Removed: 03/05/23 Time Urinary Catheter Discontinued: 11:20 Data 03/03/23 03:39 03/03/23 03:39 A&P Assessment and plan (1) Hemiplegic migraine: (2) Difficulty with speech: (3) Dysarthria: (4) Ptosis, right eyelid: (5) Recurrent occipital headache: (6) Posterior circulation stroke: (7) Acute ischemic left middle cerebral artery (MCA) stroke: [place] [address] Progress Note Signed Patient: Donis Chapman MR#: [id number] : 1980 Age/Sex: 42 / F ADM Date: 03/01/23 Loc: [facility]? Room/Bed: [facility] Encounter Date: 03/06/[address]: Law Barroso MD Report Number: [id number] Subjective Subjective:?? 42-year-old female with history of migraine headaches.? Patient was admitted on 03/01/2023 with symptoms suggestive of left MCA distribution strokes.? Patient was evaluated by Dr. Joyce and was given tPA and admitted to the intensive care unit.? Code stroke was initiated on 03/03/2023.? Therefore, I was contacted to reevaluate the patient while she was undergoing a nuclear medicine stress test.? On examination on 03/03/2023 the patient was complaining of nonfluent aphasia and right upper and lower facial weakness and difficulty opening her right eye as well as deviation of her tongue to the left and difficulty with right lateral gaze with the left eye and right eye.? Repeat head CT on 03/03/2023 was unremarkable.? Patient had previously undergone head MRI, CT angiogram of the head and neck which were unrevealing.? Since the patient had already undergone tPA administration on 03/01/2023 she was not a candidate for any repeat tPA and the possibility of hemiplegic migraines could not be excluded.? The patient was started on IV Depacon.? Patient was given 500 mg IV load followed by 250 mg IV twice a day which was later increased to 250 mg IV 3 times a day and her gabapentin was increased to 300 mg p.o. 3 times daily.? On 03/05/2023 the patient reported feeling better but still complaining of some occipital pain and still displayed right eye ptosis, right upper and lower facial weak, stuttering type nonfluent aphasia and right arm weakness at approximately 4/5 strength.? Her extraocular movements were intact.? The patient denied any any benefit from the gabapentin.? Therefore gabapentin was discontinued and patient was started on Zanaflex 4 mg p.o. 3 times daily for occipital pain and IV Depakote was continued at 250 mg 3 times a day since her trough Depakote level was 60.0 on 03/05/2023.? This morning on 03/06/2023 the patient denied any headache.? She was still displaying some stuttering but her ptosis was mostly resolved and her right arm weakness was also markedly improved with 5/5 strength in all extremities this morning.? Her right facial weakness also was improved.? And extraocular movements were intact. Past medical history: Migraine headaches Right knee surgery Status post tubal ligation Hypertension Appendectomy Drug allergies: Codeine which resulted in nausea and vomiting Iodine which resulted in anaphylaxis Latex which resulted in a rash Shellfish which resulted in anaphylaxis Habits: None Review of systems: Patient denied ccipital headaches this morning.? She still displayed right facial weakness and stuttering type speech speech difficulty described as labored speech.? The patient complained of some right leg heaviness but motor strength was 5/5 bilaterally.? Patient denies chest pain, shortness of breath abdominal pain, nausea, vomiting, or extremity swelling.? Patient denies rash, fever, chills or neck stiffness. Vitals/I&O/Wt Last Vital Signs Temp ?98.1 F ?03/06/23 08:24 Pulse ?72 ?03/06/23 08:24 Resp ?15 ?03/06/23 08:24 BP ?114/76 ?03/06/23 08:24 Pulse Ox ?95 ?03/06/23 08:24 O2 Del Method ?Room Air ?03/06/23 08:24 O2 Flow Rate ?2 ?03/03/23 02:00 ? 03/05/23 03/06/23 03/06/23 ? 22:59 06:59 14:59 Intake Total 1040 / 1640 850 / 2490 425 / 425 Output Total ? 0 / 725 0 / 0 Balance 1040 / 915 850 / 1765 425 / 425 Weight last 48 hrs Weight? 251 lb 5.231 oz ? Weight? 245 lb 13.047 oz? Physical Exam Narrative:?? Vital signs stable The patient is awake and alert and talking with her family who are at her bedside.? The patient denied any headaches this morning and reported marked improvement in her headaches on the IV Depakote.? Pupils 4 mm bilaterally.? Extraocular movements intact.? Cranial nerves II through XII revealed right upper and lower facial weakness but markedly improved.? Her ptosis was markedly improved and almost resolved.? She continues to display some stuttering type speech.? Patient is able to follow commands.? Motor testing 5/5 bilaterally.? Plantar responses flexor bilaterally.? There is no clonus.? Sensory examination intact to gross modalities.? Throat clear.? Heart regular rhythm and rate.? Extremities were negative for clubbing or cyanosis. Urinary Catheter Management:?? Data ? Assessment: 1. Code stroke on 03/03/2023 manifested as increasing nonfluent aphasia and dysarthria associated with right cranial nerve III weakness manifested as ptosis, questionable left MATHEUS, difficulty with right cranial nerve lateral gaze, right upper and lower facial weakness, left cranial nerve XII weakness with deviation of the tongue to the left and right upper extremity weakness at approximately 4/5 strength. (Note: CT angiogram of the head and neck, head MRI, and repeat noncontrast head CT negative for acute findings, cervical MRI was unrevealing except for some moderate foraminal stenosis on the right at C6-7 and MRV of the brain was negative for thrombosis), on 03/06/2023 patient has no focal weakness in the upper and lower extremities and there was marked improvement in the patient's right eyelid ptosis and right upper and lower facial weakness and her speech was improved although she continues to display some stuttering type nonfluent aphasia. 2.? Left MCA distribution stroke symptoms, patient's status post tPA administration on 03/01/2023 3.? Bilateral occipital pain left side greater than right, with exacerbation on 03/07/2023 since discontinuing IV Depacon and starting oral Depakote 4.? 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 Plan: 1.? Follow-up results of protein S and protein C, Leiden factor V and prothrombin gene 2.? Continue Zanaflex 4 mg p.o. 3 times daily 3.? Restart IV Depacon to 250 mg IV 3 times a day (first dose now) on 03/07/2023 for exacerbation of occipital headache pain and and discontinue oral Depakote ER 4.? Discontinued gabapentin on 03/05/2023 since the patient denied any benefit from this medication with regards to her occipital pain 5.? Will recommend restarting IV normal saline at 75 cc/h for hydration if the patient's headaches continue 6.??Effexor was discontinued on secondary to lack of benefit with regards to occipital pain 7.? Do not administer nonsteroidal anti-inflammatory medications since these type of medication have been reported to be associated with increased risk for heart disease and strokes. 8. Do not use triptan type medication since clinically the patient's symptoms are suggestive of hemiplegic migraines 9. Trough Depakote level on 03/08/2023 10. Will consider retrial of oral Depakote ER at higher dose on 03/08/2023 if the patient's occipital headache pain stabilizes on the IV Depacon 11. We will continue to follow 12. We will consider topical or subcutaneous lidocaine/steroids injections for occipital pain if needed ? Attestations Medical Necessity Statement*: Patient evaluated by neurology for left MCA stroke, hemiplegic migraines, ptosis, and stuttering speech and occipital headaches Coding Level of Care Code 78336 Diagnoses Hemiplegic migraine G43.409 Difficulty with speech R47.9 Dysarthria R47.1 Ptosis, right eyelid H02.401 Recurrent occipital headache R51.9 Posterior circulation stroke I63.50 Acute ischemic left middle cerebral artery (MCA) stroke I63.512
[2023-03-07] MEDS: valproic acid inj 250 MG in sodium chloride 0.9% 50 ML 55 MG IV ×2 (10:31→17:57)
[2023-03-07] MEDS: tizanidine 4 mg Tablet PO (13:57)
--- NOTE | 2023-03-07 15:27 | P.PN_ITS ---
Subjective Subjective: Patient was seen this morning, she has stuttering of her words, she does report choking on eggs, but she is working with speech therapy, she does complain of weakness persistent in her right arm, complaints of headaches, neurology saw her this morning, and she tells me that he put her on IV valproic acid, she does tell me that tramadol helps with her headaches, she is a bit frustrated about her insurance issues trying to get to rehab Vitals/I&O/Wt Last Vital Signs Temp 97.8 F 03/07/23 11:55 Pulse 71 03/07/23 14:00 Resp 18 03/07/23 11:55 BP 134/93 03/07/23 11:55 Pulse Ox 94 03/07/23 11:55 O2 Del Method Room Air 03/07/23 11:55 O2 Flow Rate 2 03/03/23 02:00 03/07/23 03/07/23 03/07/23 06:59 14:59 22:59 Intake Total 120 / 1090 172.5 / 172.5 Balance 120 / -315 172.5 / 172.5 Weight last 48 hrs Weight 114 kg Physical Exam Const: COMMON NORMALS: no acute distress and patient oriented x3 Resp: COMMON NORMALS: normal respiratory effort, No retractions, No use of accessory muscles and clear to auscultation bilaterally AUSCULTATION: clear to auscultation bilaterally Cardio: COMMON NORMALS: regular rate, regular rhythm, S1 normal heart sound present and S2 normal heart sound present RATE: regular rate RHYTHM: regular rhythm HEART SOUNDS: S1 normal heart sound present and S2 normal heart sound present GI: COMMON NORMALS: Normal to inspection, nondistended, normoactive bowel sounds present and non-tender Extremity: COMMON NORMALS: no pedal edema Neuro: COMMON NORMALS: patient oriented x3 Psych: COMMON NORMALS: mental status grossly normal Urinary Catheter Management: Rahman: Cath Placed During This Visit: yes, but has since been removed by the nurse Reason for Continuing Indwelling Catheter: Accurate Measurement of Urinary Ou tput in Critically Ill Patients Urinary Catheter Date of Insertion: 03/01/23 Date Urinary Catheter Removed: 03/05/23 Time Urinary Catheter Discontinued: 11:20 Data 03/03/23 03:39 03/03/23 03:39 A&P Assessment and plan (1) Hemiplegic migraine: (2) Difficulty with speech: (3) Dysarthria: (4) Ptosis, right eyelid: (5) Recurrent occipital headache: (6) Stroke determined by clinical assessment: (7) Occipital pain: (8) Facial flushing: (9) Migraine: (10) Angina at rest: (11) Acute ischemic left middle cerebral artery (MCA) stroke: (12) Hypertensive urgency: (13) Sinus tachycardia: (14) Cerebrovascular accident: Qualifiers: CVA mechanism: unspecified Qualified Code(s): I63.9 - Cerebral infarction, unspecified Plan Migraine related hemiplegia Symptoms improving Occipital headache improving with Depakote, switch to IV valproic acid Ultram added for breakthrough headaches Zanaflex for breakthrough headaches MRI MRV unremarkable Patient has remained in sinus rhythm Patient received tPA for her hemiplegia at the time of arrival Occipital neuralgia Patient was monitored Depakote as well, cervical MRI did show osteoarthritis with osteophytes without cord compression symptoms no signs of syrinx Chest discomfort with hypertension Chest pain radiating towards her shoulder blades Signs of aortic dissection Echo unremarkable Stress test negative Patient was complaining of chest pain that was stress test was pursued Postural tachycardia without orthostasis Her tachycardia improved with addition of metoprolol Essential hypertension -Blood pressures are better controlled today, monitor Patient diastolic blood pressure was above 120s required multiple doses of IV labetalol I was able to control blood pressure with addition of spironolactone and amlodipine however that was put on hold and her blood pressure has been stable around 110s to 120s millimeters mercury, she was complaining of facial flushing with episodic hypotension I requested 24-hour urine 5-hydroxyindoleacetic acid and metanephrines which are pending I do not think she has any pheochromocytoma or carcinoid syndrome Sinus tachycardia: Improved with addition of metoprolol No signs of PE Responded to IV fluids as well Patient will continue PT/OT/ST at [facility] inpatient rehab Awaiting prior authorization she has been accepted Family is pleased with her progress I have counseled them regarding migraine related hemiplegia, she does not have typical stroke related features, if with her improvement hemiplegia and dysarthria improved that would prove a diagnosis of migraine/complex/atypical pattern Full code Plan for today monitor for headaches, PT OT, speech therapy eval, blood pressure management, headache management, spoke to nursing staff Attestations Medical Necessity Statement*: Patient requires hot position for migraines related to hemiplegia, occipital neuralgia, hypertension, Diagnoses Hemiplegic migraine G43.409 Difficulty with speech R47.9 Dysarthria R47.1 Ptosis, right eyelid H02.401 Recurrent occipital headache R51.9 Stroke determined by clinical assessment I63.9 Occipital pain R51.9 Facial flushing R23.2 Migraine G43.909 Angina at rest I20.8 Acute ischemic left middle cerebral artery (MCA) stroke I63.512 Hypertensive urgency I16.0 Sinus tachycardia R00.0 Cerebrovascular accident I63.9 CVA mechanism: unspecified
[2023-03-07] MEDS: TRAMadol 50 mg Tablet PO (15:49)
[2023-03-07] MEDS: lidocaine 5% Patch 1 PATCH TOPICAL (21:39)
[2023-03-08] VITALS (21 sets, daily range): BP systolic 100–141; BP diastolic 53–101; PULSE 56–96; RESP 11–21; TEMP 36.8; O2SAT 94–99
[2023-03-08] MEDS: valproic acid inj 250 MG in sodium chloride 0.9% 50 ML 55 MG IV (01:41)
[2023-03-08 05:58] LABS: Valproic Acid Level 71.9 ug/mL (50-100)
[2023-03-08] MEDS: metoprolol tartrate 25 mg Tablet PO ×2 (09:20→20:51)
[2023-03-08] MEDS: aspirin 81 mg EC Tablet PO (09:20)
[2023-03-08] MEDS: amlodipine 10 mg Tablet PO (09:21)
[2023-03-08] MEDS: atorvastatin 40 mg Tablet 80 MG PO (09:21)
--- NOTE | 2023-03-08 09:21 | PM.PN ---
Subjective Subjective: 42-year-old female with history of migraine headaches.? Patient was admitted on 03/01/2023 with symptoms suggestive of left MCA distribution strokes.? Patient was evaluated by Dr. Joyce and was given tPA and admitted to the intensive care unit.? Code stroke was initiated on 03/03/2023.? Therefore, I was contacted to reevaluate the patient while she was undergoing a nuclear medicine stress test.? On examination on 03/03/2023 the patient was complaining of nonfluent aphasia and right upper and lower facial weakness and difficulty opening her right eye as well as deviation of her tongue to the left and difficulty with right lateral gaze with the left eye and right eye.? Repeat head CT on 03/03/2023 was unremarkable.? Patient had previously undergone head MRI, CT angiogram of the head and neck which were unrevealing.? Since the patient had already undergone tPA administration on 03/01/2023 she was not a candidate for any repeat tPA and the possibility of hemiplegic migraines could not be excluded.? The patient was started on IV Depacon.? Patient was given 500 mg IV load followed by 250 mg IV twice a day which was later increased to 250 mg IV 3 times a day and her gabapentin was increased to 300 mg p.o. 3 times daily.? On 03/05/2023 the patient reported feeling better but still complaining of some occipital pain and still displayed right eye ptosis, right upper and lower facial weak, stuttering type nonfluent aphasia and right arm weakness at approximately 4/5 strength.? Her extraocular movements were intact.? The patient denied any any benefit from the gabapentin.? Therefore gabapentin was discontinued and patient was started on Zanaflex 4 mg p.o. 3 times daily for occipital pain and IV Depakote was continued at 250 mg 3 times a day since her trough Depakote level was 60.0 on 03/05/2023.? On the morning of 03/06/2023 the patient denied any headache.? She was still displaying some stuttering but her ptosis was mostly resolved and her right arm weakness was also markedly improved with 5/5 strength in all extremities.? Her right facial weakness also was improved and her extraocular movements were intact.? I recommended the patient start oral Depakote to see if oral Depakote would keep her occipital headache pain stable. On 03/07/2023 the patient reported recurrent intermittent occipital pain.? I spoke with the nurse caring for the patient.? The nurse informed me that he had given the patient 250 mg of Depakote ER orally earlier this morning. Therefore I restarted IV Depacon 250 mg IV 3 times a day (first dose now) to hopefully abort the patient's recurrent occipital pain and I ordered a trough Depakote level for 03/08/2023.? I continued Zanaflex 4 mg p.o. 3 times a day.? I informed the patient that if her headache stabilized, I would retry oral Depakote on 03/08/2023 and consider using a higher dose once the results of the patient's Depakote level was evaluated on 03/08/2023. This morning, the patient denied any headaches. She is doing well with stable neurological exam except for some stuttering. She was using her iPhone this morning with her right hand. The patient's trough Depakote level on 03/08/2023 was 71.9. I informed the nurse caring for the patient this morning to discontinue the IV Depacon and start regular oral Depakote 250 mg p.o. 3 times daily. The treatment plan was discussed with the patient as well and the patient agreed with this plan. Past medical history: Migraine headaches Right knee surgery Status post tubal ligation Hypertension Appendectomy Drug allergies: Codeine which resulted in nausea and vomiting Iodine which resulted in anaphylaxis Latex which resulted in a rash Shellfish which resulted in anaphylaxis Habits:None Review of systems: Patient denied any occipital headaches this morning.? She still displayed right facial weakness and stuttering type speech speech difficulty described as labored speech but reported marked improvement in her symptoms.? The patient complained of some right leg heaviness but motor strength was 5/5 bilaterally.? Patient denies chest pain, shortness of breath abdominal pain, nausea, vomiting, or extremity swelling.? Patient denies rash, fever, chills or neck stiffness. Vitals/I&O/Wt Last Vital Signs Temp 97.5 F L 03/07/23 15:57 Pulse 72 03/08/23 07:26 Resp 16 03/08/23 07:26 BP 141/88 03/08/23 07:26 Pulse Ox 98 03/08/23 07:26 O2 Del Method Room Air 03/08/23 07:26 O2 Flow Rate 2 03/03/23 02:00 03/07/23 03/08/23 03/08/23 22:59 06:59 14:59 Intake Total 52.5 / 225.0 52.5 / 277.5 Balance 52.5 / 225.0 52.5 / 277.5 Weight last 48 hrs Weight 251 lb Physical Exam Narrative: The patient is awake and alert and her speech has improved although she continues to display some stuttering type speech. Pupils 4 mm bilaterally.? Extraocular movements intact.? Cranial nerves II through XII revealed right upper and lower facial weakness but markedly improved.? Her ptosis was markedly improved and almost resolved.? She continues to display some stuttering type speech.? Patient is able to follow commands.? Motor testing is 5/5 bilaterally.? Plantar responses flexor bilaterally.? There is no clonus.? Sensory examination intact to gross modalities.? Throat clear.? Heart regular rhythm and rate.? Extremities were negative for clubbing or cyanosis. Urinary Catheter Management: Rahman: Cath Placed During This Visit: yes, but has since been removed by the nurse Reason for Continuing Indwelling Catheter: Accurate Measurement of Urinary Output in Critically Ill Patients Urinary Catheter Date of Insertion: 03/01/23 Date Urinary Catheter Removed: 03/05/23 Time Urinary Catheter Discontinued: 11:20 Data 03/03/23 03:39 03/03/23 03:39 A&P Assessment and plan (1) Hemiplegic migraine: (2) Acute ischemic left middle cerebral artery (MCA) stroke: (3) Difficulty with speech: (4) Recurrent occipital headache: (5) Weakness: Plan Assessment: 1. Code stroke on 03/03/2023 manifested as increasing nonfluent aphasia and dysarthria associated with right cranial nerve III weakness manifested as ptosis, questionable left MATHEUS, difficulty with right cranial nerve lateral gaze, right upper and lower facial weakness, left cranial nerve XII weakness with deviation of the tongue to the left and right upper extremity weakness at approximately 4/5 strength. (Note: CT angiogram of the head and neck, head MRI, and repeat noncontrast head CT negative for acute findings, cervical MRI was unrevealing except for some moderate foraminal stenosis on the right at C6-7 and MRV of the brain was negative for thrombosis), on 03/06/2023 patient has no focal weakness in the upper and lower extremities and there was marked improvement in the patient's right eyelid ptosis and right upper and lower facial weakness and her speech was improved although she continues to display some stuttering type nonfluent aphasia. 2.? Left MCA distribution stroke symptoms, patient's status post tPA administration on 03/01/2023 3.? Bilateral occipital pain left side greater than right, with exacerbation on 03/07/2023 since discontinuing IV Depacon and starting oral Depakote ER, but now currently stable after restarting IV Depacon 4.? 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 Plan: 1.? Follow-up results of protein S and protein C, Leiden factor V and prothrombin gene 2.? Continue Zanaflex 4 mg p.o. 3 times daily 3.? Discontinue IV Depacon and retrial of oral Depakote using regular Depakote 250 mg p.o. 3 times daily for occipital headache pain 4.? Discontinued gabapentin on 03/05/2023 since the patient denied any benefit from this medication with regards to her occipital pain 5.? Will recommend restarting IV Depacon and normal saline at 75 cc/h for hydration if the patient's headaches returns 6.??Effexor was discontinued on secondary to lack of benefit with regards to occipital pain 7.? Do not administer nonsteroidal anti-inflammatory medications since these type of medication have been reported to be associated with increased risk for heart disease and strokes. 8.? Do not use triptan type medication since clinically the patient's symptoms are suggestive of hemiplegic migraines 9.? We will consider topical or subcutaneous lidocaine/steroids injections for occipital pain if needed 10. Patient stable from neurological standpoint for discharge plan/rehab 11. Please schedule patient for follow-up with Dr. Joyce in 2 weeks after discharge ? Attestations Medical Necessity Statement*: The patient was evaluated by neurology for occipital headaches, left MCA stroke symptoms status post tPA, and stuttering speech and for medications regarding occipital headaches/hemiplegic migraine type symptoms. Coding Level of Care Code 67432 Diagnoses Hemiplegic migraine G43.409 Acute ischemic left middle cerebral artery (MCA) stroke I63.512 Difficulty with speech R47.9 Recurrent occipital headache R51.9 Weakness R53.1
[2023-03-08] MEDS: divalproex DR 250 mg Tablet PO ×3 (09:23→20:51)
[2023-03-08 09:44] LABS: Calculated Total (E+NE) 95 mcg/24 h (26-121)
--- NOTE | 2023-03-08 09:59 | PC.NURSE ---
Patient refused lidocaine patch because it gets stuck in her hair and also refused senna because she didn't need it
--- NOTE | 2023-03-08 14:39 | P.PN_ITS ---
Subjective Subjective: Patient was seen this morning, she has no complaints, her headache is improving, Vitals/I&O/Wt Last Vital Signs Temp 97.5 F L 03/07/23 15:57 Pulse 82 03/08/23 11:42 Resp 18 03/08/23 11:42 BP 131/85 03/08/23 11:42 Pulse Ox 96 03/08/23 11:42 O2 Del Method Room Air 03/08/23 11:42 O2 Flow Rate 2 03/03/23 02:00 03/07/23 03/08/23 03/08/23 22:59 06:59 14:59 Intake Total 52.5 / 225.0 52.5 / 277.5 480 / 480 Balance 52.5 / 225.0 52.5 / 277.5 480 / 480 Weight last 48 hrs Weight 113.852 kg Physical Exam Const: COMMON NORMALS: no acute distress and patient oriented x3 Neck/C-Spine: COMMON NORMALS: no JVD Resp: COMMON NORMALS: normal respiratory effort, No retractions, No use of accessory muscles and clear to auscultation bilaterally AUSCULTATION: clear to auscultation bilaterally Cardio: COMMON NORMALS: no JVD, regular rate, regular rhythm, S1 normal heart sound present and S2 normal heart sound present RATE: regular rate RHYTHM: regular rhythm HEART SOUNDS: S1 normal heart sound present and S2 normal heart sound present GI: COMMON NORMALS: Normal to inspection, nondistended, normoactive bowel sounds present and non-tender Extremity: COMMON NORMALS: no calf tenderness and no pedal edema Neuro: COMMON NORMALS: patient oriented x3 Psych: COMMON NORMALS: mental status grossly normal Urinary Catheter Management: Rahman: Cath Placed During This Visit: yes, but has since been removed by the nurse Reason for Continuing Indwelling Catheter: Accurate Measurement of Urinary Output in Critically Ill Patients Urinary Catheter Date of Insertion: 03/01/23 Date Urinary Catheter Removed: 03/05/23 Time Urinary Catheter Discontinued: 11:20 Data 03/03/23 03:39 03/03/23 03:39 A&P Assessment and plan (1) Hemiplegic migraine: (2) Difficulty with speech: (3) Dysarthria: (4) Ptosis, right eyelid: (5) Recurrent occipital headache: (6) Stroke determined by clinical assessment: (7) Occipital pain: (8) Facial flushing: (9) Migraine: (10) Angina at rest: (11) Acute ischemic left middle cerebral artery (MCA) stroke: (12) Hypertensive urgency: (13) Sinus tachycardia: (14) Cerebrovascular accident: Qualifiers: CVA mechanism: unspecified Qualified Code(s): I63.9 - Cerebral infarction, unspecified Plan Migraine related hemiplegia Symptoms improving Occipital headache improving with Depakote Ultram added for breakthrough headaches Zanaflex for breakthrough headaches MRI MRV unremarkable Patient has remained in sinus rhythm Patient received tPA for her hemiplegia at the time of arrival Occipital neuralgia Patient was monitored Depakote as well, cervical MRI did show osteoarthritis with osteophytes without cord compression symptoms no signs of syrinx Chest discomfort with hypertension Chest pain radiating towards her shoulder blades Signs of aortic dissection Echo unremarkable Stress test negative Patient was complaining of chest pain that was stress test was pursued Postural tachycardia without orthostasis Her tachycardia improved with addition of metoprolol Essential hypertension -Blood pressures are better controlled today, monitor Patient diastolic blood pressure was above 120s required multiple doses of IV labetalol I was able to control blood pressure with addition of spironolactone and amlodip ine however that was put on hold and her blood pressure has been stable around 110s to 120s millimeters mercury, she was complaining of facial flushing with episodic hypotension I requested 24-hour urine 5-hydroxyindoleacetic acid and metanephrines which are pending I do not think she has any pheochromocytoma or carcinoid syndrome Sinus tachycardia: Improved with addition of metoprolol No signs of PE Responded to IV fluids as well Patient will continue PT/OT/ST at [facility] inpatient rehab Awaiting prior authorization she has been accepted Family is pleased with her progress I have counseled them regarding migraine related hemiplegia, she does not have typical stroke related features, if with her improvement hemiplegia and dysarthria improved that would prove a diagnosis of migraine/complex/atypical pattern Full code Plan for today monitor for headaches, PT OT, speech therapy eval, blood pressure management, headache management, spoke to nursing staff Reviewed vitals, consultants note, spoke to nursing staff Attestations Medical Necessity Statement*: Patient requires hospitalization for migraines with hemiplegia, hypertension, occipital neuralgia Diagnoses Hemiplegic migraine G43.409 Difficulty with speech R47.9 Dysarthria R47.1 Ptosis, right eyelid H02.401 Recurrent occipital headache R51.9 Stroke determined by clinical assessment I63.9 Occipital pain R51.9 Facial flushing R23.2 Migraine G43.909 Angina at rest I20.8 Acute ischemic left middle cerebral artery (MCA) stroke I63.512 Hypertensive urgency I16.0 Sinus tachycardia R00.0 Cerebrovascular accident I63.9 CVA mechanism: unspecified
[2023-03-08 22:50] LABS: PROTEIN S, ACTIVITY 78 % normal (60-140)
[2023-03-09] VITALS (16 sets, daily range): BP systolic 112–128; BP diastolic 72–94; PULSE 62–94; RESP 16–23; TEMP 36.3–36.6; O2SAT 93–100
[2023-03-09] MEDS: metoprolol tartrate 25 mg Tablet PO ×2 (08:12→20:39)
[2023-03-09] MEDS: atorvastatin 40 mg Tablet 80 MG PO (08:13)
[2023-03-09] MEDS: aspirin 81 mg EC Tablet PO (08:13)
[2023-03-09] MEDS: divalproex DR 250 mg Tablet PO ×3 (08:13→20:39)
[2023-03-09] MEDS: amlodipine 10 mg Tablet PO (08:13)
--- NOTE | 2023-03-09 13:46 | P.PN_ITS ---
Subjective Subjective: Patient was seen this morning, family members at bedside, she has no complaints, head ache is under control Vitals/I&O/Wt Last Vital Signs Temp 97.9 F 03/09/23 07:48 Pulse 76 03/09/23 12:00 Resp 16 03/09/23 12:00 BP 119/87 03/09/23 12:00 Pulse Ox 99 03/09/23 10:00 O2 Del Method Room Air 03/09/23 07:55 O2 Flow Rate 2 03/03/23 02:00 03/08/23 03/09/23 03/09/23 22:59 06:59 14:59 Intake Total 720 / 1200 660 / 660 Output Total 0 / 0 Balance 720 / 1200 660 / 660 Weight last 48 hrs Weight 111.765 kg Weight 113.852 kg Physical Exam Const: COMMON NORMALS: no acute distress and patient oriented x3 Resp: COMMON NORMALS: normal respiratory effort, No retractions, No use of accessory muscles and clear to auscultation bilaterally AUSCULTATION: clear to auscultation bilaterally Cardio: COMMON NORMALS: regular rate, regular rhythm, S1 normal heart sound present and S2 normal heart sound present RATE: regular rate RHYTHM: regular rhythm HEART SOUNDS: S1 normal heart sound present and S2 normal heart sound present GI: COMMON NORMALS: Normal to inspection, nondistended, normoactive bowel sounds present and non-tender Extremity: COMMON NORMALS: no calf tenderness and no pedal edema Neuro: COMMON NORMALS: patient oriented x3 Psych: COMMON NORMALS: mental status grossly normal Urinary Catheter Management: Rahman: Cath Placed During This Visit: yes, but has since been removed by the nurse Reason for Continuing Indwelling Catheter: Accurate Measurement of Urinary Output in Critically Ill Patients Urinary Catheter Date of Insertion: 03/01/23 Date Urinary Catheter Removed: 03/05/23 Time Urinary Catheter Discontinued: 11:20 Data 03/03/23 03:39 03/03/23 03:39 A&P Assessment and plan (1) Hemiplegic migraine: (2) Difficulty with speech: (3) Dysarthria: (4) Ptosis, right eyelid: (5) Recurrent occipital headache: (6) Stroke determined by clinical assessment: (7) Occipital pain: (8) Facial flushing: (9) Migraine: (10) Angina at rest: (11) Acute ischemic left middle cerebral artery (MCA) stroke: (12) Hypertensive urgency: (13) Sinus tachycardia: (14) Cerebrovascular accident: Qualifiers: CVA mechanism: unspecified Qualified Code(s): I63.9 - Cerebral infarction, unspecified Plan Migraine related hemiplegia Symptoms improving Occipital headache improving with Depakote Ultram added for breakthrough headaches Zanaflex for breakthrough headaches MRI MRV unremarkable Patient has remained in sinus rhythm Patient received tPA for her hemiplegia at the time of arrival Occipital neuralgia Patient was monitored Depakote as well, cervical MRI did show osteoarthritis with osteophytes without cord compression symptoms no signs of syrinx Chest discomfort with hypertension Chest pain radiating towards her shoulder blades Signs of aortic dissection Echo unremarkable Stress test negative Patient was complaining of chest pain that was stress test was pursued Postural tachycardia without orthostasis Her tachycardia improved with addition of metoprolol Essential hypertension -Blood pressures are better controlled today, monitor Patient diastolic blood pressure was above 120s required multiple doses of IV labetalol I was able to control blood pressure with addition of spironolactone and amlodipine however that was put on hold and her blood pressure has been stable around 110s to 120s millimeters mercury, she was complaining of facial flushing with episodic hypotension I requested 24-hour urine 5-hydroxyindoleacetic acid and metanephrines which are pending I do not think she has any pheochromocytoma or carcinoid syndrome Sinus tachycardia: Improved with addition of metoprolol No signs of PE Responded to IV fluids as well Patient will continue PT/OT/ST at [facility] inpatient rehab Awaiting prior authorization she has been accepted Family is pleased with her progress I have counseled them regarding migraine related hemiplegia, she does not have typical stroke related features, if with her improvement hemiplegia and dysarthria improved that would prove a diagnosis of migraine/complex/atypical pattern Full code Plan for today monitor for headaches, PT OT, speech therapy eval, blood pressure management, headache management, spoke to nursing staff Reviewed vitals, consultants note, spoke to nursing staff Attestations Medical Necessity Statement*: Patient requires hospitalization for migraine with right hemiplegia, Diagnoses Hemiplegic migraine G43.409 Difficulty with speech R47.9 Dysarthria R47.1 Ptosis, right eyelid H02.401 Recurrent occipital headache R51.9 Stroke determined by clinical assessment I63.9 Occipital pain R51.9 Facial flushing R23.2 Migraine G43.909 Angina at rest I20.8 Acute ischemic left middle cerebral artery (MCA) stroke I63.512 Hypertensive urgency I16.0 Sinus tachycardia R00.0 Cerebrovascular accident I63.9 CVA mechanism: unspecified
[2023-03-09 20:45] LABS: PROTEIN C, ACTIVITY 168 % normal (70-180)
[2023-03-10] VITALS (7 sets, daily range): BP systolic 103–132; BP diastolic 66–89; PULSE 60–96; RESP 14–21; O2SAT 97–99
[2023-03-10] MEDS: aspirin 81 mg EC Tablet PO (08:47)
[2023-03-10] MEDS: atorvastatin 40 mg Tablet 80 MG PO (08:47)
[2023-03-10] MEDS: amlodipine 10 mg Tablet PO (08:47)
[2023-03-10] MEDS: metoprolol tartrate 25 mg Tablet PO (08:47)
[2023-03-10] MEDS: divalproex DR 250 mg Tablet PO (08:47)
--- NOTE | 2023-03-10 10:41 | PC.NURSE ---
Spoke with patient about plan for today. The patient was hoping to be able to be discharged and go to a rehab facility today but when I spoke with Betty Rojsa RN from case management, it will not be today. Notes are being sent to [facility] at [facility].
--- NOTE | 2023-03-10 13:52 | P.DS_ITS ---
Discharge Providers Date of Admission: 03/01/23 17:22 Date of Discharge: March 10, 2023 Attending Provider at Admission: Law Barroso MD Attending Provider at Discharge: Newton Lam MD Primary Care Provider: Rob Franco MD Diagnoses at Discharge Discharge Diagnosis (1) Hemiplegic migraine: Status: Acute (2) Difficulty with speech: Status: Acute (3) Dysarthria: Status: Acute (4) Ptosis, right eyelid: Status: Acute (5) Recurrent occipital headache: Status: Acute (6) Stroke determined by clinical assessment: Status: Acute (7) Occipital pain: Status: Acute (8) Facial flushing: Status: Acute (9) Migraine: Status: Acute (10) Angina at rest: Status: Acute (11) Acute ischemic left middle cerebral artery (MCA) stroke: Status: Acute (12) Hypertensive urgency: Status: Acute (13) Sinus tachycardia: Status: Inactive (14) Cerebrovascular accident: Status: Acute Qualifiers: CVA mechanism: unspecified Qualified Code(s): I63.9 - Cerebral infarction, unspecified Reason for Visit Reason for Visit: STROKE LIKE SYMPTOMS Hospital Course Hospital Course Donis Chapman is a 42 year old female who started experiencing right- sided weakness around 12:30 PM today presented to the hospital within 30 to 40 minutes, patient received tPA after initial evaluation, patient was suffering from right-sided arm and lower extremity weakness around right-sided facial droop with slurring with speech, she was complaining of headache CT head did not show any signs of bleeding, initial NIH score was 10 CTA head and neck did not show any arterial occlusion or dissection.,? EKG showed sinus tachycardia She is stating that she was seen in the ER on Thursday for chest pain and hypertension, her pressure was 180s over 126 mm weeks she was given losartan, chest pain resolved with slight improvement of blood pressure, she was waiting for stress test, today when she returned to [facility] around noon she was in her bedroom when she started noticing scanning speech right-sided weakness she managed herself to go to the living area and told her daughter to call who called 911 Patient was tachycardic, hypertensive, stroke alert was called At the time of my evaluation patient was pleasant however at the end of my meeting her pressure pressure was 157/124 mmHg, I asked nurse to give her 10 mg of IV labetalol, she was complaining of severe headache, I have requested another CT head without contrast and put her on 5 L nasal cannula to see if that would improve her headache, given her tramadol Patient was admitted to [facility] on 03/01/2023 for symptoms suggest mari of left MCA distribution CVA, was evaluated by neurology, was given tPA, admitted to ICU, on 03/03 another stroke code was called, patient was complaining of nonfluent aphasia and right upper and lower facial weakness, difficulty opening her eyes as well as deviation of her tongue to the left, and right lateral gaze with left eye and right eye, repeat CT head within normal limits, previous MRI and CT head, CTA were within normal limits was not a candidate for tPA, concerns for hemiplegic migraines, started on IV Depacon, on 03/05/2023, patient was feeling better, still having some occipital pain, right eye ptosis, right upper and lower facial weakness, stuttering type nonfluent aphasia, right arm weakness she was managed with Depacon, Flexeril, on discharge she continues to have stuttering type aphasia, her right upper extremity weakness has significantly improved, she was working well with physical therapy, plans were to discharge her to outpatient rehab, she was waiting for outpatient rehab to accept her /insurance approval, however there was issues in getting her to a facility due to insurance reasons/availability, on 03/10/2023, patient and family decided that she wanted to go home with home health care, discharged with home health. Discharged on aspirin, statin, blood pressure control, Depakote with a follow-up with neurology as outpatient. Follow-up protein S, protein C, factor V Leiden, prothrombin gene results as outpatient through neurology. Follow-up with primary care provider for blood pressure check as outpatient. Physical Exam Const: COMMON NORMALS: no acute distress and patient oriented x3 Resp: COMMON NORMALS: normal respiratory effort, No retractions, No use of accessory muscles and clear to auscultation bilaterally AUSCULTATION: clear to auscultation bilaterally Cardio: COMMON NORMALS: regular rate, regular rhythm, S1 normal heart sound present and S2 normal heart sound present RATE: regular rate RHYTHM: regular rhythm HEART SOUNDS: S1 normal heart sound present and S2 normal heart sound present GI: COMMON NORMALS: Normal to inspection, nondistended, normoactive bowel sounds present and non-tender Extremity: COMMON NORMALS: no pedal edema Neuro: COMMON NORMALS: patient oriented x3 Psych: COMMON NORMALS: mental status grossly normal Urinary Catheter Management: Rahman: Cath Placed During This Visit: yes, but has since been removed by the nurse Reason for Continuing Indwelling Catheter: Accurate Measurement of Urinary Output in Critically Ill Patients Urinary Catheter Date of Insertion: 03/01/23 Date Urinary Catheter Removed: 03/05/23 Time Urinary Catheter Discontinued: 11:20 Discharge Data Studies Completed and Pending Completed Studies During Hospitalization Category Date Time Status CT head thrombolytic 69203 Routine Cat Scan 03/03/23 11:[address] head wo con* [id number] Stat Cat Scan 03/01/23 20:22 Completed CTA head neck [CT angio headneck* [id number]] Stat Cat Scan 03/01/23 14:23 Completed Sestamibi Stress Test Request Routine Exams 03/02/23 12:19 Completed MR cervical spin wo con* [id number] Routine MRI 03/03/23 12:33 Completed MR head wo con* [id number] Routine MRI 03/02/23 07:00 Completed MRV [[place] [id number]] Routine MRI 03/04/23 08:08 Completed NM della perf SPECT r/s* [id number] Routine Nuc Med 03/03/23 08:00 Completed CV. echo w/w bubble cont [id number] Routine Ultrasound 03/02/23 19:43 Completed Pending at discharge Category Date Time Status 5-HIAA 24Hr Urine Routine Lab 03/02/23 14:00 Received Factor 5 Leiden Mutation Stat Lab 03/03/23 15:53 Received PROTHROMBIN (FACTOR II) [id number] Stat Lab 03/03/23 15:53 Received Radiology Impressions Head/Neck CTA 03/01/23 14:23 IMPRESSION: 1. No acute intracranial abnormality. 2. No arterial stenosis, occlusion or aneurysm. ASSESSMENT: ASPECTS (Bypro Stroke Program Early CT Score) is 10. IMPRESSION: No arterial stenosis, occlusion or dissection. REFERENCES: NASCET CRITERIA. The degree of stenosis in the cervical segment of the internal carotid artery is based on NASCET criteria. Normal is no stenosis. Mild is less than 50% stenosis. Moderate is 50-69% stenosis. Severe is 70% to 99% stenosis. Total occlusion is no detectable patent lumen. ADDENDUM: 03/01/23 1459 THIS REPORT CONTAINS FINDINGS THAT MAY BE CRITICAL TO PATIENT CARE. The findings were verbally communicated via telephone conference with Mark Iniguez at 2:56 PM CDT on 03/01/2023. The findings were acknowledged and understood. Head MRI 03/02/23 07:00 IMPRESSION: 1. No diffusion-weighted abnormalities are identified. No evidence for an acute infarct. Portions of the brain are obscured by artifact from the patient's piercings. 2. No significant volume loss. No prior remote infarct. 3. No hydrocephalus. Head CT 03/03/23 11:45 IMPRESSION: 1. No evidence of intracranial hemorrhage or mass effect. 2. No acute intracranial findings. Notified Law Barroso MD at 03/03/2023 11:57 AM. Cervical Spine MRI 03/03/23 12:33 IMPRESSION: 1. Disc osteophyte complex RIGHT foramen C6-7. Resulting in moderate RIGHT foraminal stenosis. 2. Minimal osteophytic ridging at C5-6 without stenosis. 3. No signal abnormality within the cord. Head/Brain Mag Res Venography 03/04/23 08:08 IMPRESSION: Asymmetric dural venous sinuses, RIGHT more dominant than the LEFT. Normal variant. No definite thrombosis is identified. Laboratory Results WBC 8.1 10^3/uL (4.0-10.0) 03/03/23 03:39 RBC 4.38 10^6/uL (4.1-5.3) 03/03/23 03:39 Hgb 12.9 g/dL (11.5-15.3) 03/03/23 03:39 Hct 40.9 % (37.0-47.0) 03/03/23 03:39 MCV 93.4 fl (81-99) 03/03/23 03:39 MCH 29.5 pg (28.0-34.0) 03/03/23 03:39 MCHC 31.5 g/dL (30.0-36.0) 03/03/23 03:39 RDW 12.4 % (12.1-15.1) 03/03/23 03:39 Plt Count 288 10^3/cmm (130-400) 03/03/23 03:39 MPV 8.7 fL (7.4-10.4) 03/03/23 03:39 Neut % (Auto) 58.1 % 03/03/23 03:39 Lymph % (Auto) 31.8 % 03/03/23 03:39 Castro % (Auto) 7.3 % 03/03/23 03:39 Eos % (Auto) 2.1 % 03/03/23 03:39 Baso % (Auto) 0.2 % 03/03/23 03:39 Neut # (Auto) 4.69 10^3/uL (1.8-7.7) 03/03/23 03:39 Lymph # (Auto) 2.6 10^3/uL (0.8-4.8) 03/03/23 03:39 Castro # (Auto) 0.6 10^3/uL (0.2-0.9) 03/03/23 03:39 Eos # (Auto) 0.2 10^3/uL (0.0-0.8) 03/03/23 03:39 Baso # (Auto) 0.0 10^3/uL (0.0-0.1) 03/03/23 03:39 Nucleated RBC % (auto) 0 % 03/03/23 03:39 Nucleated RBCs # 0.0 /100WBC 03/03/23 03:39 PT 13.40 SECONDS (12.1-14.9) 03/01/23 16:19 INR 0.99 (0.8-1.2) 03/01/23 16:19 APTT 24.4 SECONDS (23.9-36.7) 03/01/23 16:19 D-Dimer 0.50 ug/mIFEU (0-0.59) 03/02/23 21:57 Prot C Funct Activity 168 % normal (70-180) 03/01/23 21:57 Protein S Activity 78 % normal (60-140) 03/01/23 21:57 Sodium 139 mmol/L (136-145) 03/03/23 03:39 Potassium 4.2 mmol/L (3.5-5.1) 03/03/23 03:39 Chloride 102 mmol/L (98-107) 03/03/23 03:39 Carbon Dioxide 29 mmol/L (22-29) 03/03/23 03:39 Anion Gap 12.2 (5-19) 03/03/23 03:39 BUN 22 mg/dL (6-20) H 03/03/23 03:39 Creatinine 0.7 mg/dL (0.5-0.9) 03/03/23 03:39 GFR Calculation 92.7 mL/min (90-130) 03/03/23 03:39 Glucose 99 mg/dL (65-115) 03/03/23 03:39 POC Glucose 85 mg/dL (70-110) 03/03/23 11:47 Estimat Average Glucose 108 03/01/23 16:19 Hemoglobin A1c 5.4 % (4.0-6.0) 03/01/23 16:19 Calculated Osmolality 291 mOsm/kg (285-295) 03/03/23 03:39 Calcium 8.6 mg/dL (8.5-10.5) 03/03/23 03:39 Magnesium 2.2 mg/dL (1.7-2.3) 03/02/23 21:57 Total Bilirubin 0.3 mg/dL (0.15-1.2) 03/01/23 16:19 AST 18 U/L (0-32) 03/01/23 16:19 ALT 27 U/L (0-33) 03/01/23 16:19 Alkaline Phosphatase 86 U/L (35-105) 03/01/23 16:19 Troponin T Baseline 6 ng/L (0-10) 03/02/23 21:57 Troponin T 120 Minute 6.00 ng/L (0-10) 03/02/23 23:27 Delta Troponin T 0 ABS# (0-10) 03/02/23 23:27 Troponin T Hi Sens 6Hr 6.00 ng/L (0-10) 03/03/23 03:39 Troponin T Hi Sens 6Hr Delta 0 ng/L (0-12) 03/03/23 03:39 C-Reactive Protein 4.6 mg/L (0.0-4.9) 03/01/23 16:19 Total Protein 6.6 g/dL (6.6-8.7) 03/01/23 16:19 Albumin 4.2 g/dL (3.5-5.2) 03/01/23 16:19 Globulin 2.4 g/dL (1.3-4.6) 03/01/23 16:19 Vitamin B12 392 pg/mL (232-1245) 03/01/23 16:19 Homocysteine 15.73 03/01/23 16:19 TSH 0.58 uIU/mL (0.27-4.20) 03/01/23 16:19 HCG, Qual Negative (Negative) 03/03/23 03:39 Random Cortisol 2.18 ug/dL (2.47-19.5) L 03/02/23 13:49 Urine Color Yellow (Yellow) 03/01/23 15:30 Urine Appearance Clear (CLEAR) 03/01/23 15:30 Urine pH 5 (5-7) 03/01/23 15:30 Ur Specific [place] 1.005 (1.005-1.030) 03/01/23 15:30 Urine Protein Neg (Negative) 03/01/23 15:30 Urine Glucose (UA) Norm (Normal) 03/01/23 15:30 Urine Ketones Negative (Negative) 03/01/23 15:30 Urine Blood Neg (Negative) 03/01/23 15:30 Urine Nitrate Negative (Negative) 03/01/23 15:30 Urine Bilirubin Neg (Negative) 03/01/23 15:30 Urine Urobilinogen Norm mg/dL (Negative) 03/01/23 15:30 Ur Leukocyte Esterase Negative (Negative) 03/01/23 15:30 Urine Total Volume 2000 mL/24 h 03/02/23 14:00 Urine Epinephrine 8 mcg/24 h (2-24) 03/02/23 14:00 U Epineph & Norepi 24h 95 mcg/24 h (26-121) 03/02/23 14:00 Urine Norepinephrine 87 mcg/24 h (15-100) 03/02/23 14:00 Urine Dopamine 239 mcg/24 h (52-480) 03/02/23 14:00 Urine Opiates Screen Negative ng/mL (Negative) 03/01/23 15:30 Ur Barbiturates Screen Negative ng/mL (Negative) 03/01/23 15:30 Valproic Acid 71.9 ug/mL (50-100) 03/08/23 05:10 Ur Phencyclidine Scrn Negative ng/mL (Negative) 03/01/23 15:30 Ur Amphetamines Screen Negative ng/mL (Negative) 03/01/23 15:30 U Benzodiazepines Scrn Positive ng/mL (Negative) H 03/01/23 15:30 [place] < 0.1 mmol/L (0.6-1.2) L 03/01/23 16:19 Urine Cocaine Screen Negative ng/mL (Negative) 03/01/23 15:30 U Marijuana (THC) Screen Negative ng/mL (Negative) 03/01/23 15:30 OSCAR Screen Negative (NEGATIVE) 03/01/23 21:57 Vitals Last Vital Signs Temp 97.8 F 03/09/23 16:00 Pulse 81 03/10/23 11:59 Resp 16 03/10/23 11:59 BP 132/89 03/10/23 11:59 Pulse Ox 97 03/10/23 11:59 O2 Del Method Room Air 03/10/23 11:59 O2 Flow Rate 2 03/03/23 02:00 Discharge Plan Discharge Patient Disposition: Home Condition: Stable Prescriptions: New atorvastatin 40 mg Tablet 80 mg PO DAILY 30 Days Qty: 30 0RF aspirin 81 mg Tablet,Delayed Release (Dr/Ec) 81 mg PO DAILY 30 Days Qty: 30 0RF metoprolol tartrate 25 mg Tablet 25 mg PO BID@0900,2100 30 Days Qty: 60 0RF amlodipine 10 mg Tablet 10 mg PO DAILY 30 Days Qty: 30 0RF tizanidine 4 mg Tablet 4 mg PO TID PRN (Reason: Spasms) 7 Days Qty: 21 0RF divalproex 250 mg Tablet,Delayed Release (Dr/Ec) 250 mg PO TID 30 Days Qty: 90 0RF Discontinued venlafaxine 150 mg capsule,extended release 24hr 150 mg PO QAM valsartan 80 mg tablet 80 mg PO QAM pantoprazole 40 mg tablet,delayed release (DR/EC) 40 mg PO BID clonidine HCl 0.1 mg tablet 0.1 mg PO Q6H PRN (Reason: hypertensive emergency) Qty: 14 0RF Discharge Orders: Discharge Order (Routine); Ordered 03/10/23 Ordered By: Newton Lam Other Ambulatory Orders: Occupational Therapy Eval and Treat Outpatient (Order) Timeframe: 3 Days Facility: [facility] - Location: Occupational Therapy Ordered By: Law Barroso Physical Therapy Eval and Treat Outpatient (Order) Timeframe: 3 Days Facility: [facility] - Location: Physical Therapy [place] Ordered By: Law Barroso Speech Language Pathology Eval and Treat Outpatient (Order) Timeframe: 3 Days Facility: [facility] - Location: Speech Therapy [place] Ordered By: Law Barroso Referrals: Kanwal Joyce MD [Physician] - 2 weeks Rob Franco MD [Primary Care Provider] - Discharge Diet: As Directed Discharge Activity: As per PT/OT instructions Patient Instructions: Ischemic Stroke (DC), Opioid Safety Activity Restrictions/Additional Instructions: - Take medications as prescribed -Please follow-up with neurology in 2 weeks -If you develop recurrent strokelike symptoms please go to emergency room -See primary care in 1 week Discharge Attestations Time Spent in Discharge Care*: greater than 30 min Quality Metrics Clinical Quality Measures [ Cerebrovascular Accident { Contraindication to Antithrombotic: None; antithrombotic prescribed; Contraindication to Anticoagulation: Overlap treatment not indicated; Contraindication to Statin: None; Statin prescribed;}] Coding Level of Care Code 80192 Total time (in minutes) for Discharge: 50 Diagnoses Hemiplegic migraine G43.409 Difficulty with speech R47.9 Dysarthria R47.1 Ptosis, right eyelid H02.401 Recurrent occipital headache R51.9 Stroke determined by clinical assessment I63.9 Occipital pain R51.9 Facial flushing R23.2 Migraine G43.909 Angina at rest I20.8 Acute ischemic left middle cerebral artery (MCA) stroke I63.512 Hypertensive urgency I16.0 Sinus tachycardia R00.0 Cerebrovascular accident I63.9 CVA mechanism: unspecified
--- NOTE | 2023-03-10 15:29 | PC.NURSE ---
Patient was discharged via wheelchair to private vehicle at 1441 with . IV removed and intact at removal. Patient did not want education nor discussion about medications. She was very pleasant but wanted to leave the hospital. Education packet and information about appointments was given to patient and phone number to CSU provided if she had later questions.
[2023-03-10 23:35] LABS: Factor 5 Leiden Mutation POSITIVE
[2023-03-11] LABS: PROTHROMBIN (FACTOR II) 20210G NEGATIVE
[2023-03-13 18:44] LABS: 24 Hour Urine Volume 2000 mL; 5-HIAA, 24 Hour Urine 3.7 mg/24 h (< OR = 6.0)
== END 2023-03-10 14:41 | disposition home or self-care (01) | DRG 62 ==
LOC: ER 17:22 → ICU 17:26 → CSU 03-03 14:20
PROVIDERS: Internal Medicine; Psychiatry & Neurology Neurology; Admitting Provider Internal Medicine; Emergency Provider Emergency Medicine; PCP Family Medicine; Visit Provider Family Medicine
DX: I63.512 Cerebral infarction due to unspecified occlusion or stenosis of left middle cerebral artery (principal); D68.51 Activated protein C resistance; G81.91 Hemiplegia, unspecified affecting right dominant side; R29.810 Facial weakness; R47.81 Slurred speech; H53.8 Other visual disturbances; R29.711 NIHSS score 11; I10 Essential (primary) hypertension; G43.409 Hemiplegic migraine, not intractable, without status migrainosus; R23.2 Flushing; M47.812 Spondylosis without myelopathy or radiculopathy, cervical region; M54.81 Occipital neuralgia
CPT/HCPCS: 36415; 36416; 51702; 70450; 70496; 70498; 70544; 70551; 72141; 78452; 80048; 80053; 80164; 80178; 80306; 81003; 81241; 82384; 82533; 82607; 82962; 83036; 83090; 83497; 83735; 84443; 84484; 84703; 85025; 85210; 85303; 85306; 85378; 85610; 85730; 86038; 86140; 92507; 92523; 92526; 92610; 93005; 93017; 96372; 96374; 96375; 96376; 97110; 97112; 97116; 97161; 97167; 97530; 97535; 99291; 99292; A9500; C8929; J1885; J2270; J2405; J2550; J2765; J2785; J2997; J3490; J7030; Q9967

== ENCOUNTER 2023-03-25 11:25 | Outpatient (RCR) | payer BC, SELFPAY | END 2023-03-25 23:59 | disposition home or self-care (01) | LOC: SR3 11:25 | PROVIDERS: PCP Family Medicine; Visit Provider Internal Medicine | DX: I63.539 Cerebral infarction due to unspecified occlusion or stenosis of unspecified posterior cerebral artery (principal) | CPT/HCPCS: 92523; 92610; 97161; 97167 ==

== ENCOUNTER 2023-03-26 06:00 | Outpatient (RCR) | payer BC, SELFPAY | END 2023-04-24 23:59 | disposition home or self-care (01) | LOC: SR3 06:00 | PROVIDERS: PCP Family Medicine; Visit Provider Internal Medicine | DX: I63.50 Cerebral infarction due to unspecified occlusion or stenosis of unspecified cerebral artery (principal) | CPT/HCPCS: 92507; 92526; 97110; 97112; 97530 ==

== ENCOUNTER 2023-04-03 09:47 | Oncology outpatient (recurring) (ONCR) | payer BC, SELFPAY | END 2023-04-24 23:59 | disposition home or self-care (01) | PROVIDERS: PCP Family Medicine; Visit Provider Internal Medicine Medical Oncology | DX: Z53.9 Procedure and treatment not carried out, unspecified reason (principal) ==

== ENCOUNTER 2023-04-25 06:00 | Outpatient (RCR) | payer BC, SELFPAY | END 2023-05-25 23:59 | disposition home or self-care (01) | LOC: SR3 06:00 | PROVIDERS: PCP Family Medicine; Visit Provider Internal Medicine | DX: I63.50 Cerebral infarction due to unspecified occlusion or stenosis of unspecified cerebral artery (principal) | CPT/HCPCS: 92507; 97110; 97112; 97530 ==

== ENCOUNTER 2023-05-26 06:00 | Outpatient (RCR) | payer BC, SELFPAY | END 2023-06-25 23:59 | disposition home or self-care (01) | LOC: SST 06:00 | PROVIDERS: Visit Provider Internal Medicine | DX: R13.12 Dysphagia, oropharyngeal phase (principal); I63.50 Cerebral infarction due to unspecified occlusion or stenosis of unspecified cerebral artery; I63.539 Cerebral infarction due to unspecified occlusion or stenosis of unspecified posterior cerebral artery; I69.320 Aphasia following cerebral infarction; I69.322 Dysarthria following cerebral infarction; I69.391 Dysphagia following cerebral infarction | CPT/HCPCS: 92507; 97110 ==

== ENCOUNTER 2023-05-29 17:04 | Emergency (ER) | payer BC, SELFPAY ==
--- NOTE | 2023-05-29 17:06 | ED_ITS ---
HPI - Neuro Symptoms/Deficit General: Chief Complaint: Neuro Symptoms/Deficit Stated Complaint: stroke alert Time Seen by Provider: 05/29/23 17:06 History of Present Illness: Ms. Chapman is a 42-year-old lady with apparent history of factor V Leiden and prior concern for stroke presented to the emergency department for evaluation of strokelike symptoms. Last known well 1620. Currently she had no residual deficits from stroke on 03/02 for which she received tPA. She perhaps fe lt unwell earlier and came home from work early her. Subsequently daughter noticed recurrence of very similar symptoms to prior. Speech disturbance associated with vision difficulty and right-sided paresthesias as well as weakness. Last Observed Normal: 16:20 Location: speech, right face, right arm and right leg History of same: Yes On Anticoagulants: Yes Review of Systems General: Reports: 10 or more systems reviewed and unremarkable except in HPI and below PFSH ED PFSH: Medical History Chest pain Hypertension Surgical History History of surgical removal of meniscus of knee Hx of appendectomy Tubal ligation status Family History Other CAD (coronary artery disease) Family history of premature coronary artery disease Social History Smoking and tobacco status: never smoked Alcohol intake: never Substance/Drug Use: never Household members: spouse Housing: House NIH stroke score NIHSS: Level Of Consciousness - 1a: 0 Level Of Consciousness Questions - 1b: Both Correct Level Of Consciousness Commands - 1c: Both Correct Best Gaze - 2: Normal Visual Banda - 3: Partial Hemianopia Facial Palsy - 4: Complete Paralysis Motor Arm Right - 5: Drift Motor Arm Left - 5: No Drift Motor Leg Right - 6: Drift Motor Leg Left - 6: No Drift Limb Ataxia - 7: Present In One Limb Sensory - 8: Mild To Moderate Loss Best Language - 9: Mild/Moderate Aphasia Dysarthia - 10: Normal Extinction And Inattention - 11: 1 Score: Total Score: 10 Physical Exam Const: COMMON NORMALS: alert GENERAL APPEARANCE: cooperative and well developed HENMT: COMMON NORMALS: normocephalic and atraumatic HEAD & SCALP: normocephalic and atraumatic Eye: COMMON NORMALS: conjunctivae normal CONJUNCTIVA: Yes conjunctivae normal SCLERA: sclerae normal Neck/C-Spine: COMMON NORMALS: supple GENERAL: Yes trachea midline Resp: COMMON NORMALS: clear to auscultation bilaterally EFFORT & INSPECTION: Yes able to speak in complete sentences AUSCULTATION: clear to auscultation bilaterally Cardio: COMMON NORMALS: regular rate and regular rhythm RATE: regular rate RHYTHM: regular rhythm GI: COMMON NORMALS: Soft to palpation PALPATION: Yes Soft to palpation and No Tenderness to palpation present (GI) Extremity: GENERAL: Yes normal exam except as noted and No edema Neuro: COMMON NORMALS: moves all extremities SENSORIUM/ORIENTATION: Yes alert and No Orientation impaired Psych: COMMON NORMALS: mental status grossly normal and Normal thought process present THOUGHT PROCESS: Normal thought process present Course Vital Signs: Vital signs: Vital Signs Temperature 98.3 F 05/29/23 17:13 Pulse Rate 82 05/29/23 20:19 Respiratory Rate 18 05/29/23 20:19 Blood Pressure 142/99 05/29/23 20:19 Pulse Oximetry 96 05/29/23 20:19 Oxygen Delivery Me thod Room Air 05/29/23 18:30 MDM - Neuro Symptoms/Deficit Medical Decision Making 43-year-old lady with apparent history of stroke presenting for evaluation of strokelike symptoms. NIHSS 10 though much of this appears atypical and at times effort dependent. Brought to CT scanner with no acute hemorrhage identified. Patient is on warfarin and prior stroke is just under 3 months ago. Therefore I will discuss with [facility] stroke. EKG demonstrates sinus tachycardia with no evidence of STEMI. No significant hematologic or metabolic abnormalities to explain symptoms. No UTI. Subtherapeutic warfarin. CT imaging with no evidence of large vessel occlusion. Challenging situation. After assessment by [facility] via televideo consult they agree this is felt to be less likely to be stroke however difficult to know for sure. I discussed extensively with the patient and we will not proceed with tPA at this time given risk and low clinical likelihood of stroke. Patient treated with migraine with complete resolution of symptoms and return to normal baseline. Most likely has complex migraine. Need for follow-up for warfarin titration discussed. The results of ED evaluation were discussed with the patient including prescriptions and/or symptomatic cares (if applicable) including appropriate and responsible use, followup plan, and return precautions. The patient verbalized understanding and felt safe for discharge. Medical Records I reviewed the patient's medical records. Lab Data I reviewed the patient's lab results. 05/29/23 17:39 05/29/23 17:39 Radiology Impressions Head/Neck CTA 05/29/23 17:07 IMPRESSION: 1. No large vessel stenosis or occlusion. 2. Focal areas of moderate stenosis in the proximal superior posterior cerebellar arteries. IMPRESSION: No stenosis or occlusion. REFERENCES: NASCET CRITERIA. The degree of stenosis in the cervical segment of the internal carotid artery is based on NASCET criteria. Normal is no stenosis. Mild is less than 50% stenosis. Moderate is 50-69% stenosis. Severe is 70% to 99% stenosis. Total occlusion is no detectable patent lumen. Laboratory Results WBC 6.7 10^3/uL (4.0-10.0) 05/29/23 17:39 RBC 4.72 10^6/uL (4.1-5.3) 05/29/23 17:39 Hgb 13.9 g/dL (11.5-15.3) 05/29/23 17:39 Hct 41.9 % (37.0-47.0) 05/29/23 17:39 MCV 88.8 fl (81-99) 05/29/23 17:39 MCH 29.4 pg (28.0-34.0) 05/29/23 17:39 MCHC 33.2 g/dL (30.0-36.0) 05/29/23 17:39 RDW 12.2 % (12.1-15.1) 05/29/23 17:39 Plt Count 355 10^3/cmm (130-400) 05/29/23 17:39 MPV 9.0 fL (7.4-10.4) 05/29/23 17:39 Neut % (Auto) 58.0 % 05/29/23 17:39 Lymph % (Auto) 31.7 % 05/29/23 17:39 [place] % (Auto) 7.7 % 05/29/23 17:39 Eos % (Auto) 1.8 % 05/29/23 17:39 Baso % (Auto) 0.4 % 05/29/23 17:39 Neut # (Auto) 3.88 10^3/uL (1.8-7.7) 05/29/23 17:39 Lymph # (Auto) 2.1 10^3/uL (0.8-4.8) 05/29/23 17:39 [place] # (Auto) 0.5 10^3/uL (0.2-0.9) 05/29/23 17:39 Eos # (Auto) 0.1 10^3/uL (0.0-0.8) 05/29/23 17:39 Baso # (Auto) 0.0 10^3/uL (0.0-0.1) 05/29/23 17:39 Nucleated RBC % (auto) 0 % 05/29/23 17:39 Nucleated RBCs # 0.0 /100WBC 05/29/23 17:39 PT 16.50 SECONDS (12.1-14.9) H 05/29/23 17:39 INR 1.29 (0.8-1.2) H 05/29/23 17:39 APTT 28.7 SECONDS (23.9-36.7) 05/29/23 17:39 Sodium 137 mmol/L (136-145) 05/29/23 17:39 Potassium 3.8 mmol/L (3.5-5.1) 05/29/23 17:39 Chloride 99 mmol/L (98-107) 05/29/23 17:39 Carbon Dioxide 26 mmol/L (22-29) 05/29/23 17:39 Anion Gap 15.8 (5-19) 05/29/23 17:39 BUN 15 mg/dL (6-20) 05/29/23 17:39 Creatinine 0.6 mg/dL (0.5-0.9) 05/29/23 17:39 GFR Calculation 110.7 mL/min (90-130) 05/29/23 17:39 Glucose 139 mg/dL (65-115) H 05/29/23 17:39 POC Glucose 125 mg/dL (70-110) H 05/29/23 17:37 Calculated Osmolality 287 mOsm/kg (285-295) 05/29/23 17:39 Calcium 8.7 mg/dL (8.5-10.5) 05/29/23 17:39 Total Bilirubin 0.4 mg/dL (0.15-1.2) 05/29/23 17:39 AST 13 U/L (0-32) 05/29/23 17:39 ALT 21 U/L (0-33) 05/29/23 17:39 Alkaline Phosphatase 113 U/L (35-105) H 05/29/23 17:39 Total Protein 6.8 g/dL (6.6-8.7) 05/29/23 17:39 Albumin 4.3 g/dL (3.5-5.2) 05/29/23 17:39 Globulin 2.5 g/dL (1.3-4.6) 05/29/23 17:39 Urine Color Yellow (Yellow) 05/29/23 19:00 Urine Appearance Clear (CLEAR) 05/29/23 19:00 Urine pH 7 (5-7) 05/29/23 19:00 Ur Specific [place] 1.005 (1.005-1.030) 05/29/23 19:00 Urine Protein Neg (Negative) 05/29/23 19:00 Urine Glucose (UA) Norm (Normal) 05/29/23 19:00 Urine Ketones Negative (Negative) 05/29/23 19:00 Urine Blood Neg (Negative) 05/29/23 19:00 Urine Nitrate Negative (Negative) 05/29/23 19:00 Urine Bilirubin Neg (Negative) 05/29/23 19:00 Urine Urobilinogen Norm mg/dL (Negative) 05/29/23 19:00 Ur Leukocyte Esterase Negative (Negative) 05/29/23 19:00 Urine Opiates Screen Negative ng/mL (Negative) 05/29/23 19:00 Ur Barbiturates Screen Negative ng/mL (Negative) 05/29/23 19:00 Ur Phencyclidine Scrn Negative ng/mL (Negative) 05/29/23 19:00 Ur Amphetamines Screen Negative ng/mL (Negative) 05/29/23 19:00 U Benzodiazepines Scrn Negative ng/mL (Negative) 05/29/23 19:00 Urine Cocaine Screen Negative ng/mL (Negative) 05/29/23 19:00 U Marijuana (THC) Screen Negative ng/mL (Negative) 05/29/23 19:00 Critical Care Time Critical Care Time: Critical Care Time: Yes Total Critical Care Time: 40 Attestation: Due to a high probability of clinically significant, possibly life threatening deterioration, the patient required my highest level of attention and preparedness to intervene emergently and I personally spent this critical care time directly and personally managing the patient. This critical care time included obtaining a history; examining the patient; pulse oximetry; ordering and review of laboratory and imaging studies; arranging urgent treatment with development of a management plan; evaluation of patient's response to treatment; frequent reassessment; and, discussions with other providers as applicable. It was exclusive of separately billable procedures. Primary system involved is neuro Discharge Plan Discharge Patient Disposition: Home Clinical Impression: Complicated migraine, Stroke-like symptom Condition: Stable Prescriptions: New Reglan 10 mg tablet 10 mg PO Q6H PRN (Reason: headache) Qty: 20 0RF No Action warfarin 5 mg tablet 5 mg PO DAILY amoxicillin 125 mg tablet,chewable 250 mg PO DAILY pantoprazole 40 mg tablet,delayed release (DR/EC) 40 mg PO BID tizanidine 4 mg tablet 2 mg PO DAILY PRN Discharge Orders: Discharge ED (Routine); Ordered 05/29/23 Ordered By: David Meza Referrals: Rob Franco MD [Primary Care Provider] - Discharge Diet: Usual diet Discharge Activity: Resume usual activity Patient Instructions: Migraine Headache (ED) Activity Restrictions/Additional Instructions: Thank you for visiting the emergency department. You were seen about for strokelike symptoms. The exact cause of your symptoms is unclear however may be related to complex headache. We are pleased that you had resolution with treatment. I will message case management for follow-up. As discussed you do require follow-up for your INR. Return for recurrent symptoms or anything else that you are concerned about and feel needs emergency department evaluation. Stand Alone Forms: Work/School Release Coding Level of Care Code ED Material Distributor for Bhanu Keyes
--- NOTE | 2023-05-29 17:07 | CTR_ITS ---
PROCEDURE INFORMATION: Exam: CTA Head With Contrast, Arteriography Exam date and time: 05/29/2023 5:03 PM Age: 42 years old Clinical indication: Stroke-like symptoms; Altered mental status/memory loss; Additional info: Stroke like symptoms TECHNIQUE: Imaging protocol: Computed tomographic angiography of the head with contrast. Exam focused on the arteries. 3D rendering (Not supervised by radiologist): MIP and/or 3D reconstructed images were created by the technologist. Radiation optimization: All CT scans at this facility use at least one of these dose optimization techniques: automated exposure control; mA and/or kV adjustment per patient size (includes targeted exams where dose is matched to clinical indication); or iterative reconstruction. Contrast material: OMNI 350; Contrast volume: 100 ml; Contrast route: INTRAVENOUS (IV); REPORTING DATA: Count of CT and Cardiac NM exams in prior 12 months: This patient has received 5 known CTs and 0 known cardiac nuclear medicine studies in the 12 months prior to the current study. COMPARISON: CT angio headneck* [id number] 03/01/2023 2:10 PM, brain MRI dated 03/02/2023. MR venography dated 03/04/2023. RADIATION DOSE METRICS: Total DLP (mGy-cm): 1640.28 FINDINGS: ANTERIOR CIRCULATION: Right internal carotid artery: Intracranial segment is patent with no significant stenosis. No aneurysm. Right middle cerebral artery: No occlusion or significant stenosis. No aneurysm. Right anterior cerebral artery: No occlusion or significant stenosis. No aneurysm. Left internal carotid artery: Intracranial segment is patent with no significant stenosis. No aneurysm. Left middle cerebral artery: No occlusion or significant stenosis. No aneurysm. Left anterior cerebral artery: No occlusion or significant stenosis. No aneurysm. POSTERIOR CIRCULATION: Right vertebral artery: No occlusion or significant stenosis. No aneurysm. Left vertebral artery: No occlusion or significant stenosis. No aneurysm. Basilar artery: No occlusion or significant stenosis. No aneurysm. Right posterior cerebral artery: The P1 segment of the left posterior cerebral artery is hypoplastic. Main perfusion through left posterior communicating artery. No occlusion or significant stenosis. No aneurysm. Left posterior cerebral artery: No occlusion or significant stenosis. No aneurysm. Right posterior communicating artery: Patent right posterior communicating artery. Left posterior communicating artery: Patent left posterior communicating artery. Other arteries: There are focal areas of moderate stenosis in the proximal superior posterior cerebellar arteries. Brain: No acute major vascular distribution infarction identified. No definite mass, mass effect, or midline shift. No hemorrhage. Cerebral ventricles: No ventriculomegaly. Bones/joints: Unremarkable. No acute fracture. Soft tissues: Unremarkable. PROCEDURE INFORMATION: Exam: CTA Neck With Contrast Exam date and time: 05/29/2023 5:03 PM Age: 42 years old Clinical indication: Stroke-like symptoms; Altered mental status/memory loss; Additional info: Stroke like symptoms TECHNIQUE: Imaging protocol: Computed tomographic angiography of the neck with contrast. 3D rendering (Not supervised by radiologist): MIP and/or 3D reconstructed images were created by the technologist. Radiation optimization: All CT scans at this facility use at least one of these dose optimization techniques: automated exposure control; mA and/or kV adjustment per patient size (includes targeted exams where dose is matched to clinical indication); or iterative reconstruction. Contrast material: OMNI 350; Contrast volume: 100 ml; Contrast route: INTRAVENOUS (IV); REPORTING DATA: Count of CT and Cardiac NM exams in prior 12 months: This patient has received 5 known CTs and 0 known cardiac nuclear medicine studies in the 12 months prior to the current study. COMPARISON: CT angio headneck* [id number] 03/01/2023 2:10 PM RADIATION DOSE METRICS: Total DLP (mGy-cm): 1640.28 FINDINGS: Right common carotid artery: No stenosis. No dissection or occlusion. Right internal carotid artery: No stenosis of the extracranial segment. No dissection or occlusion. Right external carotid artery: No occlusion or stenosis of the origin. Left common carotid artery: No stenosis. No dissection or occlusion. Left internal carotid artery: No stenosis of the extracranial segment. No dissection or occlusion. Left external carotid artery: No occlusion or stenosis of the origin. Right vertebral artery: No stenosis. No dissection or occlusion. Left vertebral artery: No stenosis. No dissection or occlusion. Soft tissues: Normal. No significant soft tissue swelling. Bones/joints: No acute fracture. Degenerative changes of the spine seen. CT/CT angio headneck* [id number] IMPRESSION: 1. No large vessel stenosis or occlusion. 2. Focal areas of moderate stenosis in the proximal superior posterior cerebellar arteries. IMPRESSION: No stenosis or occlusion. REFERENCES: NASCET CRITERIA. The degree of stenosis in the cervical segment of the internal carotid artery is based on NASCET criteria. Normal is no stenosis. Mild is less than 50% stenosis. Moderate is 50-69% stenosis. Severe is 70% to 99% stenosis. Total occlusion is no detectable patent lumen.
--- NOTE | 2023-05-29 17:07 | ECG_ITS ---
[facility] Test Date: 2023-05-29 Pat Name: Donis Chapman Department: Room: Gender: Female Lab Technologist: : 1980 Requested By: David Meza Order Number: [id number] Oscar MD: Sarahi Tabares M.D. Measurements Intervals [place] Rate: 115 P: 52 RI: 154 QRS: 47 QRSD: 96 T: 32 QT: 300 QTc: 416 Interpretive Statements SINUS TACHYCARDIA LOW QRS VOLTAGE IN PRECORDIAL LEADS [QRS DEFLECTION < 1.0 mV IN CHEST LEADS] NONSPECIFIC T-WAVE ABNORMALITY ABNORMAL RHYTHM ECG Compared to ECG 03/03/2023 13:54:09 Low QRS voltage now present T-wave abnormality now present Sinus rhythm no longer present Sinus arrhythmia no longer present Electronically Signed On 05-29-2023 22:55:51 CDT by Sarahi Tabares M.D. [id number]
[2023-05-29 17:13] VITALS: BP 157/108; PULSE 112; RESP 20; TEMP 36.8; O2SAT 96; BMI 40.6
[2023-05-29 17:18] VITALS: BP 157/108; PULSE 98; RESP 14; O2SAT 96
[2023-05-29 17:43] LABS: Glucose Point of Care 125 mg/dL (70-110)
[2023-05-29 17:49] LABS: Basophils % 0.4 %; Eosinophils # 0.1 10^3/uL (0.0-0.8); Eosinophils % 1.8 %; Hematocrit 41.9 % (37.0-47.0); Hemoglobin 13.9 g/dL (11.5-15.3); Lymphocytes # 2.1 10^3/uL (0.8-4.8); Lymphocytes % 31.7 %; Mean Corpuscular HGB Conc 33.2 g/dL (30.0-36.0); Mean Corpuscular Hemoglobin 29.4 pg (28.0-34.0); Mean Corpuscular Volume 88.8 fl (81-99); Monocytes # 0.5 10^3/uL (0.2-0.9); Monocytes % 7.7 %; Neutrophils # 3.88 10^3/uL (1.8-7.7); Nucleated Red Blood Cells % 0 %; Platelet Count 355 10^3/cmm (130-400); Red Blood Count 4.72 10^6/uL (4.1-5.3); Red Cell Distribution Width 12.2 % (12.1-15.1); White Blood Count 6.7 10^3/uL (4.0-10.0)
[2023-05-29 17:59] LABS: INR 1.29 (0.8-1.2)
[2023-05-29 18:00] LABS: Partial Thromboplastin Time 28.7 SECONDS (23.9-36.7)
[2023-05-29 18:03] VITALS: BP 148/98; PULSE 92; O2SAT 94
[2023-05-29 18:13] LABS: Alanine Aminotransferase 21 U/L (0-33); Albumin Level 4.3 g/dL (3.5-5.2); Alkaline Phosphatase 113 U/L (35-105); Anion Gap 15.8 (5-19); Aspartate Amino Transferase 13 U/L (0-32); Blood Urea Nitrogen 15 mg/dL (6-20); Calcium 8.7 mg/dL (8.5-10.5); Carbon Dioxide 26 mmol/L (22-29); Chloride 99 mmol/L (98-107); Globulin 2.5 g/dL (1.3-4.6); Glomerular Filtration Rate 110.7 mL/min (90-130); Glucose 139 mg/dL (65-115); Osmolality Calculated 287 mOsm/kg (285-295); Potassium 3.8 mmol/L (3.5-5.1); Sodium 137 mmol/L (136-145); Total Bilirubin 0.4 mg/dL (0.15-1.2); Total Protein 6.8 g/dL (6.6-8.7)
[2023-05-29] MEDS: diphenhydrAMINE 50 mg/mL SDV 1mL 25 MG IVP (18:28)
[2023-05-29] MEDS: sodium chloride 0.9% 1,000 ML 999 ML IV (18:28)
[2023-05-29] MEDS: ketorolac 30 mg/mL INJ 15 MG IVP (18:29)
[2023-05-29 18:30] VITALS: BP 145/103; PULSE 90; O2SAT 95
[2023-05-29] MEDS: metoclopramide 5 mg/mL SDV 2 mL 10 MG IVP (18:38)
[2023-05-29 19:14] LABS: Add Urine Microscopic? NO; Charge for UA Resulting for Rev
[2023-05-29 19:15] LABS: Bilirubin Urine Neg (Negative); Blood Urine Neg (Negative); Glucose Urine UA Norm (Normal); Ketones Urine Negative (Negative); Leukocyte Esterase Urine Negative (Negative); Nitrate Urine Negative (Negative); Protein Urine Neg (Negative); Specific Gravity, Urine 1.005 (1.005-1.030); Urine Appearance Clear (CLEAR); Urine Color Yellow (Yellow); Urobilinogen Urine Norm (Negative); pH Urine 7 (5-7)
[2023-05-29 19:24] LABS: Amphetamines Screen Urine Negative (Negative); Barbiturates Screen Urine Negative (Negative); Benzodiazepines Screen Urine Negative (Negative); Cocaine Screen Urine Negative (Negative); Opiate Screen Urine Negative (Negative); PCP Screen Urine Negative (Negative); THC Screen Urine Negative (Negative)
[2023-05-29 20:19] VITALS: BP 142/99; PULSE 82; RESP 18; O2SAT 96
--- NOTE | 2023-06-01 10:10 | DCPLANNER ---
Addendum entered by Sandra Russo 06/03/23 08:53: Patient has a follow up appointment scheduled for Wednesday, July 06, 2022 at 9:[address] Leal at neurology. Original Note: apartment leasing manager had message to schedule a follow up appointment for patient with neurology. apartment leasing manager sent patients information to the front office staff at neurology. Patients information will be printed and reviewed. Clinic will call patient with appointment information.
== END 2023-05-29 20:11 | disposition home or self-care (01) ==
PROVIDERS: Emergency Provider Emergency Medicine; PCP Family Medicine
DX: G43.109 Migraine with aura, not intractable, without status migrainosus (principal); R68.89 Other general symptoms and signs; Z79.01 Long term (current) use of anticoagulants; I10 Essential (primary) hypertension
CPT/HCPCS: 36415; 36416; 70496; 70498; 80053; 80306; 81003; 82962; 85025; 85610; 85730; 93005; 96374; 96375; 99285; J1200; J1885; J2765; J7030; Q9967

== ENCOUNTER 2023-06-11 10:01 | Outpatient (RCR) | payer BC, SELFPAY | END 2023-06-25 23:59 | disposition home or self-care (01) | LOC: SOT 10:01 | PROVIDERS: Visit Provider Family Medicine | DX: I63.9 Cerebral infarction, unspecified (principal) | CPT/HCPCS: 97110; 97167; 97530 ==

== ENCOUNTER 2023-06-26 06:00 | Outpatient (RCR) | payer BC, SELFPAY | END 2023-07-25 23:59 | disposition home or self-care (01) | LOC: SST 06:00 | PROVIDERS: PCP Family Medicine; Visit Provider Internal Medicine | DX: R13.10 Dysphagia, unspecified (principal) | CPT/HCPCS: 92507 ==

== ENCOUNTER 2023-06-26 06:00 | Outpatient (RCR) | payer BC, SELFPAY | END 2023-07-07 06:53 | disposition home or self-care (01) | LOC: SOT 06:00 | PROVIDERS: PCP Family Medicine; Visit Provider Family Medicine | DX: I63.9 Cerebral infarction, unspecified (principal); I10 Essential (primary) hypertension | CPT/HCPCS: 97110; 97530 ==

== ENCOUNTER 2023-07-01 09:12 | Outpatient (CLI) | payer BC, SELFPAY ==
--- NOTE | 2023-07-01 09:19 | FL_ITS ---
WS: [id number] Modified barium swallow, 07/01/2023 Clinical Data: Other dysphagia Comparison: None. Fluoroscopy time: 2min [id number] # of spot films: 1 Findings: The patient initiated swallowing slowly. There was premature spillage. There is no significant pharyn geal or vallecular residue. There is no aspiration or penetration. The propulsion of contents through the hypopharynx was fairly slow. The barium tablet did propelled normally from the oropharynx to the hypopharynx into the esophagus and stomach. Impression: Slow oral and pharyngeal progression of contents with no aspiration or penetration.
== END 2023-07-01 09:13 | disposition home or self-care (01) ==
PROVIDERS: PCP Family Medicine; Visit Provider Family Medicine
DX: R13.19 Other dysphagia (principal)
CPT/HCPCS: 74230; 92611

== ENCOUNTER 2023-07-02 12:31 | Outpatient (RCR) | payer BC, SELFPAY | END 2023-07-25 23:59 | disposition home or self-care (01) | LOC: SPT 12:31 | PROVIDERS: PCP Family Medicine; Visit Provider Family Medicine | DX: I63.9 Cerebral infarction, unspecified (principal) | CPT/HCPCS: 97110; 97162 ==

== ENCOUNTER 2023-07-09 07:25 | Emergency (ER) | payer BC, SELFPAY ==
[2023-07-09] VITALS (13 sets, daily range): BP systolic 128–179; BP diastolic 85–125; PULSE 81–103; RESP 14–24; TEMP 37; O2SAT 95–100
--- NOTE | 2023-07-09 07:30 | ECG_ITS ---
[facility] Test Date: 2023-07-09 Pat Name: Donis Chapman Department: Room: Gender: Female Drip Molder: : 1980 Requested By: Bhupinder Galindo Order Number: [id number] Oscar MD: Jean Musa M.D. Measurements Intervals [place] Rate: 106 P: 61 MO: 172 QRS: 52 QRSD: 101 T: 52 QT: 349 QTc: 465 Interpretive Statements SINUS TACHYCARDIA LOW QRS VOLTAGE IN PRECORDIAL LEADS [QRS DEFLECTION < 1.0 mV IN CHEST LEADS] ABNORMAL RHYTHM ECG Compared to ECG 05/29/2023 17:16:55 T-wave abnormality no longer present Electronically Signed On 07-09-2023 19:24:45 CDT by Jean Musa M.D. [id number]
--- NOTE | 2023-07-09 07:30 | CT_ITS ---
WS: [id number] CT HEAD NONCONTRAST HISTORY: Symptoms of acute stroke TECHNIQUE: Contiguous axial imaging performed through the brain in 2.5 mm imaging. Bone and soft tiss ue windows. Sagittal and coronal reformats reviewed. All CT scans at [facility] use at least one of these dose optimization techniques: automated exposure control; mA and/or kV adjustment per pa tient size (includes targeted exams where dose is matched to clinical indication); or iterative recon struction. DLP: 1061.30 mGy COMPARISON: None available. No acute intracranial hemorrhage, midline shift or mass effect. No atrophy or prior infarcts or herniation. Ventricles: Normal size with no hydrocephalus. Paranasal sinuses: As visualized are clear. Mastoid air cells: Well pneumatized. Calvarium and scalp: Skull is intact with no soft tissue edema or swelling. IMPRESSION: Negative head CT. Notified Bhupinder Galindo MD at 07/09/2023 7:43 AM.
--- NOTE | 2023-07-09 07:30 | CT_ITS ---
WS: [id number] CT ANGIOGRAM CEREBRAL AND CAROTID ARTERIES HISTORY: cva TECHNIQUE: CT angiogram is performed of the carotid and cerebral arteries. During arterial injection imaging is obtained from the skull vertex to the aortic arch in 1.25 mm imaging. Coronal and sagittal reformats are submitted. Additional multi planar reformats of the carotid and cerebral arteries are submitted, MIP imaging also reviewed. NASCET criteria utilized. All CT scans at [facility] us e at least one of these dose optimization techniques: automated exposure control; mA and/or kV adjust ment per patient size (includes targeted exams where dose is matched to clinical indication); or iter ative reconstruction. CONTRAST: Omnipaque 350; 100 mL IV. DLP: 524.38 mGy.cm COMPARISON: None available. Study is compromised by moderate motion artifact. Carotid Angiogram: Right carotid: Common carotid artery: Arises normally from the innominate artery. No significant plaque or stenosis. Internal carotid artery: No plaque or stenosis. External carotid artery: Patent. Left carotid: Common carotid artery: Arises normally from the aorta. No significant plaque or stenosis. Internal carotid artery: No plaque or stenosis. External carotid artery: Patent. Right vertebral artery: Poor enhancement and motion artifact. Does appear intact. Left vertebral artery: Poor enhancement and motion artifact. Does appear in intact. Subclavian arteries: No stenosis or significant abnormality. Upper thorax: Breathing motion artifact. Thyroid gland: Normal. Osseous structures: Unremarkable. CEREBRAL ANGIOGRAM: Intracranial vertebral arteries: Normal with no significant atherosclerosis. Basilar artery: No significant stenosis or occlusion. No aneurysm. Intracranial Internal carotid arteries: Demonstrates no significant stenosis or plaque. Middle cerebral arteries: Middle cerebral arteries are both patent. There is a focal area of mild hoda nosis involving the distal LEFT M1 segment. Very similar to the prior exam. No thrombus or occlusion. Anterior cerebral arteries and ACOM: Normal. Posterior cerebral arteries and PCOM's: Small caliber LEFT P1 segment as previously described. Domin ant LEFT posterior communicating artery. As previously described the posterior superior cerebellar ar teries demonstrate mild atherosclerosis and narrowing. No interval change. These are not as well visu alized today as on the prior exam. Dural venous sinuses are normally enhancing. Mastoid air cells: Normal. Paranasal sinuses: Normal. Calvarium: Normal. IMPRESSION: 1. Overall the study is compromised by motion artifact. 2. No cervical carotid artery stenosis. 3. Focal narrowing involving the distal LEFT M1 segment, unchanged. No acute thrombus. 4. No areas of occlusion or interval change.
--- NOTE | 2023-07-09 07:47 | W.ED.NEUROSD ---
HPI - Neuro Symptoms/Deficit General: Chief Complaint: Neuro Symptoms/Deficit Stated Complaint: stroke like symptoms Time Seen by Provider: 07/09/23 07:27 Source: patient and family Mode of arrival: ambulatory Limitations: no limitations History of Present Illness: 43-year-old female who has a history of factor V Leiden along with history of stroke states that she woke up this morning with a hard time speaking along with right-sided weakness. She had went to bed last night at 10 PM her last known normal was 10 PM. She is having some word finding difficulties here. She is having weakness on the right side more in her legs and her arm. She also complaining of a headache has a history of migraines as well. Associated symptoms: Reports headache(s); Deny chest pain, nausea or vomiting Review of Systems Const: Denies: fever(s) or chills Eyes: Denies: blurry vision or eye discomfort ENMT: Denies: throat pain or dental pain Card: Denies: chest pain Resp: Denies: dyspnea GI: Denies: abdominal pain, nausea, vomiting or diarrhea : Denies: dysuria Musc: Denies: neck pain or back pain Skin/Breast: Denies: rash Neuro: Reports: headache(s), weakness in extremities and Slurred speech present [facility] ED PFSH: Medical History Chest pain Hypertension Stroke Surgical History History of surgical removal of meniscus of knee Hx of appendectomy Tubal ligation status Family History Other CAD (coronary artery disease) Family history of premature coronary artery disease Social History Smoking and tobacco status: never smoked Alcohol intake: never Substance/Drug Use: never Household members: spouse Housing: House NIH stroke score NIHSS: Level Of Consciousness - 1a: 0 Level Of Consciousness Questions - 1b: Both Correct Level Of Consciousness Commands - 1c: Both Correct Best Gaze - 2: Normal Visual Banda - 3: No Visual Loss Facial Palsy - 4: Normal Motor Arm Right - 5: Drift Motor Arm Left - 5: No Drift Motor Leg Right - 6: Effort Against [place] Motor Leg Left - 6: No Drift Limb Ataxia - 7: Absent Sensory - 8: Normal Best Language - 9: No Aphasia Dysarthia - 10: Mild/Moderate Dysarthia Extinction And Inattention - 11: 0 Score: Total Score: 4 Physical Exam Const: COMMON NORMALS: patient oriented x3 and healthy appearing HENMT: COMMON NORMALS: normocephalic and atraumatic HEAD & SCALP: normocephalic and atraumatic Eye: COMMON NORMALS: Equal, round and reactive pupils present and EOMs intact bilaterally PUPIL: Yes Equal, round and reactive pupils present Neck/C-Spine: COMMON NORMALS: full ROM and supple Chest: COMMONS NORMALS: normal inspection of the chest and normal palpation of entire chest wall Resp: COMMON NORMALS: normal respiratory effort, No retractions, No use of accessory muscles and clear to auscultation bilaterally AUSCULTATION: clear to auscultation bilaterally Cardio: COMMON NORMALS: regular rate, regular rhythm and No murmurs present (Cardio) RATE: regular rate RHYTHM: regular rhythm GI: COMMON NORMALS: Normal to inspection, nondistended, normoactive bowel sounds present, Soft to palpation, non-tender and no masses PALPATION: Yes Soft to palpation Extremity: COMMON NORMALS: normal to inspection and full ROM Neuro: COMMON NORMALS: patient oriented x3 Psych: COMMON NORMALS: mental status grossly normal, Normal thought process present and cooperative THOUGHT PROCESS: Normal thought process present Skin: COMMON NORMALS: no rashes or lesions noted and no wounds GENERAL SKIN EXAM: no rashes or lesions noted Course Vital Signs: Vital signs: Vital Signs Temperature 98.6 F 07/09/23 07:27 Pulse Rate 94 07/09/23 11:13 Respiratory Rate 16 07/09/23 11:13 Blood Pressure 162/98 07/09/23 11:13 Pulse Oximetry 99 07/09/23 11:13 Oxygen Delivery Me thod Room Air 07/09/23 09:31 MDM - Neuro Symptoms/Deficit Medical Decision Making Patient presents here with a headache likely migraine headache with aura patient was seen by neurologist who knows her well and feels like is likely migraine with aura she had her symptoms of complete resolved her headache resolved she has no signs of acute stroke here head CT CTA are normal I feel she is stable for discharge she is to follow-up with neurologist return if worsening Medical Records I reviewed the patient's medical records. Lab Data I reviewed the patient's lab results. 07/09/23 07:59 07/09/23 07:59 Laboratory Results WBC 6.61 10^3/uL (3.29-11.43) 07/09/23 07:59 RBC 4.27 10^6/uL (3.85-5.65) 07/09/23 07:59 Hgb 12.80 g/dL (11.27-16.99) 07/09/23 07:59 Hct 38.8 % (36-47) 07/09/23 07:59 MCV 90.9 fl (85-98) 07/09/23 07:59 MCH 30.0 pg (27-33) 07/09/23 07:59 MCHC 33.0 g/dL (30-55) 07/09/23 07:59 RDW 12.9 % (12.1-15.1) 07/09/23 07:59 Plt Count 282 10^3/cmm (157-399) 07/09/23 07:59 MPV 9.0 fL (7.4-10.4) 07/09/23 07:59 Neut % (Auto) 58.2 % 07/09/23 07:59 Lymph % (Auto) 31.9 % 07/09/23 07:59 [place] % (Auto) 8.8 % 07/09/23 07:59 Eos % (Auto) 0.6 % 07/09/23 07:59 Baso % (Auto) 0.2 % 07/09/23 07:59 Neut # (Auto) 3.85 10^3/uL (1.8-7.7) 07/09/23 07:59 Lymph # (Auto) 2.1 10^3/uL (0.8-4.8) 07/09/23 07:59 [place] # (Auto) 0.6 10^3/uL (0.2-0.9) 07/09/23 07:59 Eos # (Auto) 0.0 10^3/uL (0.0-0.8) 07/09/23 07:59 Baso # (Auto) 0.0 10^3/uL (0.0-0.1) 07/09/23 07:59 Nucleated RBC % (auto) 0 % 07/09/23 07:59 Nucleated RBCs # 0.0 /100WBC 07/09/23 07:59 PT 14.50 SECONDS (12.1-14.9) 07/09/23 07:59 INR 1.09 (0.8-1.2) 07/09/23 07:59 APTT 27.4 SECONDS (23.9-36.7) 07/09/23 07:59 Sodium 138 mmol/L (136-145) 07/09/23 07:59 Potassium 4.4 mmol/L (3.5-5.1) 07/09/23 07:59 Chloride 103 mmol/L (98-107) 07/09/23 07:59 Carbon Dioxide 25 mmol/L (22-29) 07/09/23 07:59 Anion Gap 14.4 (5-19) 07/09/23 07:59 BUN 18 mg/dL (6-20) 07/09/23 07:59 Creatinine 0.6 mg/dL (0.5-0.9) 07/09/23 07:59 GFR Calculation 110.2 mL/min (90-130) 07/09/23 07:59 Glucose 202 mg/dL (65-115) H 07/09/23 07:59 Calculated Osmolality 294 mOsm/kg (285-295) 07/09/23 07:59 Calcium 8.0 mg/dL (8.5-10.5) L 07/09/23 07:59 Total Bilirubin 0.2 mg/dL (0.15-1.2) 07/09/23 07:59 AST 12 U/L (0-32) 07/09/23 07:59 ALT 19 U/L (0-33) 07/09/23 07:59 Alkaline Phosphatase 107 U/L (35-105) H 07/09/23 07:59 Total Protein 6.1 g/dL (6.6-8.7) L 07/09/23 07:59 Albumin 3.8 g/dL (3.5-5.2) 07/09/23 07:59 Globulin 2.3 g/dL (1.3-4.6) 07/09/23 07:59 Urine Color Yellow (Yellow) 07/09/23 08:31 Urine Appearance Clear (CLEAR) 07/09/23 08:31 Urine pH 7 (5-7) 07/09/23 08:31 Ur Specific [place] 1.005 (1.005-1.030) 07/09/23 08:31 Urine Protein Neg (Negative) 07/09/23 08:31 Urine Glucose (UA) Norm (Normal) 07/09/23 08:31 Urine Ketones Negative (Negative) 07/09/23 08:31 Urine Blood Neg (Negative) 07/09/23 08:31 Urine Nitrate Negative (Negative) 07/09/23 08:31 Urine Bilirubin Neg (Negative) 07/09/23 08:31 Urine Urobilinogen Norm mg/dL (Negative) 07/09/23 08:31 Ur Leukocyte Esterase Negative (Negative) 07/09/23 08:31 Urine Opiates Screen Negative ng/mL (Negative) 07/09/23 08:31 Ur Barbiturates Screen Negative ng/mL (Negative) 07/09/23 08:31 Ur Phencyclidine Scrn Negative ng/mL (Negative) 07/09/23 08:31 Ur Amphetamines Screen Negative ng/mL (Negative) 07/09/23 08:31 U Benzodiazepines Scrn Negative ng/mL (Negative) 07/09/23 08:31 Urine Cocaine Screen Negative ng/mL (Negative) 07/09/23 08:31 U Marijuana (THC) Screen Negative ng/mL (Negative) 07/09/23 08:31 Discharge Plan Discharge Patient Disposition: Home Clinical Impression: Intractable migraine Condition: Stable Prescriptions: No Action atorvastatin 80 mg tablet 80 mg PO DAILY valsartan 80 mg tablet 80 mg PO DAILY venlafaxine 150 mg capsule,extended release 24hr 150 mg PO DAILY aspirin 81 mg tablet,delayed release (DR/EC) 81 mg PO DAILY amlodipine 10 mg tablet 10 mg PO DAILY metoprolol succinate 25 mg tablet extended release 24 hr 25 mg PO DAILY melatonin 10 mg capsule 10 mg PO QPM divalproex [Depakote] 250 mg tablet,delayed release (DR/EC) 250 mg PO TID warfarin 5 mg tablet 5 mg PO DAILY pantoprazole 40 mg tablet,delayed release (DR/EC) 40 mg PO BID tizanidine 4 mg tablet 2 mg PO DAILY PRN (Reason: Muscle Spasm) warfarin 1 mg Tablet 2 mg PO DAILY ondansetron 4 mg Tablet,Disintegrating 4 mg PO Q6H PRN (Reason: Nausea And Vomiting) Discharge Orders: Discharge ED (Routine); Ordered 07/09/23 Ordered By: Bhupinder Galindo Referrals: Malik Leal MD [Physician] - 1-3 days Rob Franco MD [Primary Care Provider] - Discharge Diet: Advance as tolerated Discharge Activity: Resume usual activity Patient Instructions: Migraine Headache (ED) Coding Level of Care Code ED Clinical Assessment Manager for Bhanu Keyes
[2023-07-09] MEDS: iohexol 350 mg/mL 500 mL Btl (per mL) IV (07:56)
[2023-07-09 08:08] LABS: Basophils % 0.2 %; Eosinophils % 0.6 %; Hematocrit 38.8 % (36-47); Lymphocytes # 2.1 10^3/uL (0.8-4.8); Lymphocytes % 31.9 %; Mean Corpuscular Volume 90.9 fl (85-98); Monocytes # 0.6 10^3/uL (0.2-0.9); Monocytes % 8.8 %; Neutrophils # 3.85 10^3/uL (1.8-7.7); Neutrophils % 58.2 %; Nucleated Red Blood Cells % 0 %; Platelet Count 282 10^3/cmm (157-399); Red Blood Count 4.27 10^6/uL (3.85-5.65); Red Cell Distribution Width 12.9 % (12.1-15.1); White Blood Count 6.61 10^3/uL (3.29-11.43)
[2023-07-09] MEDS: diphenhydrAMINE 50 mg/mL SDV 1mL IVP (08:11)
[2023-07-09] MEDS: methylPREDNISolone sod succ 40 MG in water for injection-sterile 1 ML 12 MG IVP (08:11)
[2023-07-09 08:16] LABS: INR 1.09 (0.8-1.2); Partial Thromboplastin Time 27.4 SECONDS (23.9-36.7)
--- NOTE | 2023-07-09 08:17 | P.CONIM_ITS ---
Providers/Reason For Consult Consulting Physician/Specialty*: Malik Leal MD neurology and epilepsy Reason for Consult*: Critical care code stroke emergency department room 10 Primary Care Provider: Rob Franco MD History of Present Illness History of Present Illness Donis Chapman is a 43 year old female with a history of Leiden factor V heterozygous mutation, treated with warfarin, remote left middle cerebral artery ischemic stroke, and intractable hemiplegic migraines. According to the patient's who was present in the emergency room this morning, he and his travel to [facility] and returned home last night on 07/08/2023. The patient's stated that the patient went to bed around 9 PM. The patient's stated that he left home this morning and his was still sleeping but he received a call from their daughter stating the patient woke up on 07/09/2023 at approximately 7 AM complaining of left occipital pain and was having ptosis of the right eyelid and difficulty speaking and complaining of right-sided weakness. Code stroke was initiated. Noncontrast head CT was obtained and was negative. CT angiogram of the head and neck revealed Focal narrowing involving the distal LEFT M1 segment, unchanged. No acute thrombus. No areas of occlusion or interval change. Upon examination and ER room #10, the patient was displaying tremor of the right upper extremity, ptosis of the right eyelid, and nonfluent aphasia and but during examination the patient was able to open the right eyelid and her speech improved during conversation and patient stopped trembling/shaking the right upper extremity and a tremor like fashion but again patient was stopped the tremor to suggestion. Clinically the patient's weakness was suggestive of functional neurological disorder although the possibility of hemiplegic migraine could still be a possibility. Therefore, IV Depacon was ordered and patient was given 500 mg IV load x1 dose since IV Depacon improved her headache during a previous hospital admission. Depakote level, INR will be also obtained during blood draw in the emergency room. Note: Since the patient's last known well was 9 PM on 07/09/2023, and the patient is on warfarin, and her clinical examination was suggestive of functional neurological disorder, patient was not a candidate for tPA and no tPA was administered. Past medical history: Left MCA distribution stroke, remote CT angiogram with chronic focal narrowing of the left M1 segment, unchanged on CT angiogram of the head and neck performed on 07/09/2023 Intractable complicated migraines/hemiplegic migraines Leiden factor V heterozygous mutation, patient on warfarin Drug allergies: Codeine which resulted in nausea and vomiting Iodine which resulted in anaphylactic type reaction Latex which resulted in a rash Shellfish which which resulted in anaphylactic type reaction Current medications: Depakote 250 mg p.o. 3 times daily for intractable migraine headaches Lipitor 80 mg p.o. every morning Warfarin 4 mg p.o. every morning Valsartan 80 mg p.o. every morning Effexor 150 mg p.o. every morning Aspirin 81 mg p.o. every morning Norvasc 10 mg p.o. every morning Metoprolol 25 mg p.o. twice daily Protonix 40 mg p.o. daily Zanaflex 4 mg p.o. as needed spasms Melatonin 10 mg p.o. nightly for sleep Review of Systems General: Reports: 10 or more systems reviewed and unremarkable except in HPI and below Medications/Allergies Home Medications Medication Instructions Recorded Confirmed Last Taken Type pantoprazole 40 mg tablet,delayed 40 mg PO BID 04/03/23 07/09/23 07/08/23 History release tizanidine 4 mg tablet 2 mg PO DAILY PRN Muscle Spasm 04/03/23 07/09/23 Unknown History warfarin 5 mg tablet 5 mg PO DAILY 04/03/23 07/09/23 Unknown History amlodipine 10 mg tablet 10 mg PO DAILY 06/16/23 07/09/23 07/08/23 History aspirin 81 mg tablet,delayed 81 mg PO DAILY 06/16/23 07/09/23 07/08/23 History release atorvastatin 80 mg tablet 80 mg PO DAILY 06/16/23 07/09/23 07/08/23 History divalproex 250 mg tablet,delayed 250 mg PO TID 06/16/23 07/09/23 07/08/23 History release (Depakote) melatonin 10 mg capsule 10 mg PO QPM 06/16/23 07/09/23 07/08/23 History metoprolol succinate 25 mg 25 mg PO DAILY 06/16/23 07/09/23 07/08/23 History tablet,extended release 24 hr valsartan 80 mg tablet 80 mg PO DAILY 06/16/23 07/09/23 07/08/23 History venlafaxine 150 mg 150 mg PO DAILY 06/16/23 07/09/23 07/08/23 History capsule,extended release 24 hr ondansetron 4 mg disintegrating 4 mg PO Q6H PRN Nausea And Vomiting 07/09/23 07/09/23 Unknown History tablet warfarin 1 mg tablet 2 mg PO DAILY 07/09/23 07/09/23 07/08/23 History Allergies Allergy/AdvReac Type Severity Reaction Status Date / Time codeine Allergy ADR-Vomitin Verified 06/16/23 12:05 g iodine Allergy ALGY-Anaphy Verified 06/16/23 12:05 laxis latex Allergy ALGY-Rash Verified 06/16/23 12:05 shellfish derived Allergy ALGY-Anaphy Verified 06/16/23 12:05 laxis PFSH Acute PFSH: Medical History Chest pain Hypertension Stroke Surgical History History of surgical removal of meniscus of knee Hx of appendectomy Tubal ligation status Family History Other CAD (coronary artery disease) Family history of premature coronary artery disease Social History Smoking and tobacco status: never smoked Alcohol intake: never Substance/Drug Use: never Household members: spouse Housing: House Vitals/I&O/Wt Last Vital Signs Temp 98.6 F 07/09/23 07:27 Pulse 100 07/09/23 07:27 Resp 15 07/09/23 07:27 BP 159/116 07/09/23 07:27 Pulse Ox 99 07/09/23 07:27 O2 Del Method Room Air 07/09/23 07:27 Weight last 48 hrs Weight 253 lb Physical Exam Narrative: Blood pressure 137/93 heart rate 101 O2 saturation 96% on room air The patient is alert and oriented x3. Speech patient displayed some difficulty speaking but with continued conversation her speech improved. Cranial nerves II through XII patient displayed ptosis of the right eyelid but patient able to open her right eye to command. Extraocular movements intact. Pupils 4 mm bilaterally and reactive to light. Motor testing the patient displayed right arm and right leg weakness but patient was able to move the right arm and right leg against gravity to command. [employer] strength was 5/5 bilaterally. Patient was also displaying a tremor in the right upper extremity but the tremor ceased when patient was asked to stop shaking in order to check her blood pressure. Deep tendon reflexes grossly symmetrical plantar responses flexor bilaterally. There was no clonus. Sensory examination was intact to gross modalities. Throat clear. Heart regular rhythm with slightly decreased rate of 101 bpm extremities were negative for clubbing cyanosis or edema Data 07/09/23 07:59 07/09/23 07:59 A&P Assessment and plan (1) Hemiplegic migraine with status migrainosus: Impression: 1. Intractable hemiplegic migraine 2. Functional neurological disorder 3. Leiden factor V heterozygous mutation, treated with warfarin 3. Remote left MCA distribution stenosis Plan: 1. IV Depacon 500 mg x 1 dose for intractable migraine headaches 2. Lab for Depakote level 3. Agree with current work-up and obtaining INR since patient is on warfarin 4. Continue Depakote 250 mg p.o. 3 times daily for intractable migraine headaches/occipital pain 5. The patient's symptoms improved and she is discharged from the emergency room, please schedule patient for follow-up in the neurology office in 2 weeks. 6. Please schedule patient an appointment with psychiatry 7. Will discuss further medication options for intractable migraine headaches on return visit barring whether or not the patient's insurance will approve the medications Consult Attestations Medical Necessity Statement: Patient was seen by neurology for critical care, code stroke emergency room bed 10 Coding Level of Care Code 90124 Diagnoses Hemiplegic migraine with status migrainosus G43.401 Time Spent (min) 30
[2023-07-09 08:25] LABS: Alanine Aminotransferase 19 U/L (0-33); Albumin Level 3.8 g/dL (3.5-5.2); Alkaline Phosphatase 107 U/L (35-105); Anion Gap 14.4 (5-19); Aspartate Amino Transferase 12 U/L (0-32); Blood Urea Nitrogen 18 mg/dL (6-20); Carbon Dioxide 25 mmol/L (22-29); Chloride 103 mmol/L (98-107); Globulin 2.3 g/dL (1.3-4.6); Glomerular Filtration Rate 110.2 mL/min (90-130); Glucose 202 mg/dL (65-115); Osmolality Calculated 294 mOsm/kg (285-295); Potassium 4.4 mmol/L (3.5-5.1); Sodium 138 mmol/L (136-145); Total Bilirubin 0.2 mg/dL (0.15-1.2); Total Protein 6.1 g/dL (6.6-8.7)
[2023-07-09] MEDS: valproic acid inj 500 MG in sodium chloride 0.9% 50 ML 55 MG IV (08:37)
[2023-07-09 08:51] LABS: Add Urine Microscopic? NO; Charge for UA Resulting for Rev
[2023-07-09 08:53] LABS: Bilirubin Urine Neg (Negative); Blood Urine Neg (Negative); Glucose Urine UA Norm (Normal); Ketones Urine Negative (Negative); Leukocyte Esterase Urine Negative (Negative); Nitrate Urine Negative (Negative); Protein Urine Neg (Negative); Specific Gravity, Urine 1.005 (1.005-1.030); Urine Appearance Clear (CLEAR); Urine Color Yellow (Yellow); Urobilinogen Urine Norm (Negative); pH Urine 7 (5-7)
[2023-07-09 09:02] LABS: Amphetamines Screen Urine Negative (Negative); Barbiturates Screen Urine Negative (Negative); Benzodiazepines Screen Urine Negative (Negative); Cocaine Screen Urine Negative (Negative); Opiate Screen Urine Negative (Negative); PCP Screen Urine Negative (Negative); THC Screen Urine Negative (Negative)
[2023-07-09] MEDS: hyDRALAzine 20 mg/mL INJ 1 mL 10 MG IVP (09:10)
[2023-07-09] MEDS: ketorolac 30 mg/mL INJ 15 MG IVP (09:29)
[2023-07-09] MEDS: sodium chloride 0.9% 1,000 ML 999 ML IV (09:29)
[2023-07-09] MEDS: metoclopramide 5 mg/mL SDV 2 mL IVP (09:30)
[2023-07-11 16:29] LABS: Glucose Point of Care 103 mg/dL (70-110)
== END 2023-07-09 11:14 | disposition home or self-care (01) ==
PROVIDERS: Emergency Provider Emergency Medicine; PCP Family Medicine
DX: G43.919 Migraine, unspecified, intractable, without status migrainosus (principal); Z79.82 Long term (current) use of aspirin; Z79.01 Long term (current) use of anticoagulants; I10 Essential (primary) hypertension; Z86.73 Personal history of transient ischemic attack (TIA), and cerebral infarction without residual deficits
CPT/HCPCS: 36416; 70450; 70496; 70498; 80053; 80306; 81003; 82962; 85025; 85610; 85730; 93005; 96365; 96375; 99285; J0360; J1200; J1885; J2765; J2920; J3490; J7030; Q9967

== ENCOUNTER 2023-07-26 06:00 | Outpatient (RCR) | payer BC, SELFPAY | END 2023-08-25 23:59 | disposition home or self-care (01) | LOC: SPT 06:00 | PROVIDERS: PCP Family Medicine; Visit Provider Family Medicine | DX: I63.9 Cerebral infarction, unspecified (principal) | CPT/HCPCS: 97110; 97112 ==

== ENCOUNTER 2023-08-04 10:47 | Outpatient (CLI) | payer BC, SELFPAY ==
--- NOTE | 2023-08-04 10:51 | CT_ITS ---
WS: [id number] CT HEAD NONCONTRAST HISTORY: HEADACHE TECHNIQUE: Contiguous axial imaging performed through the brain in 2.5 mm imaging. Bone and soft tiss ue windows. Sagittal and coronal reformats reviewed. All CT scans at [facility] use at least one of these dose optimization techniques: automated exposure control; mA and/or kV adjustment per pa tient size (includes targeted exams where dose is matched to clinical indication); or iterative recon struction. DLP: 1052.18 mGy.cm COMPARISON: 07/09/2023 No acute intracranial hemorrhage, midline shift or mass effect. No atrophy or prior infarcts or herniation. No significant volume loss. Ventricles: Normal size with no hydrocephalus. No inferior displacement of the cerebellar tonsils. Visualized pituitary gland and sella turcica are negative. Paranasal sinuses: As visualized are clear. Mastoid air cells: Well pneumatized. Calvarium and scalp: Skull is intact with no soft tissue edema or swelling. IMPRESSION: Negative head CT. No interval change since 07/09/2023.
== END 2023-08-04 10:48 | disposition home or self-care (01) ==
PROVIDERS: PCP Family Medicine; Visit Provider Family Medicine
DX: R51.9 Headache, unspecified (principal)
CPT/HCPCS: 70450

== ENCOUNTER 2023-08-26 06:00 | Outpatient (RCR) | payer BC, SELFPAY | END 2023-09-24 23:59 | disposition home or self-care (01) | LOC: SPT 06:00 | PROVIDERS: PCP Family Medicine; Visit Provider Family Medicine | DX: I63.9 Cerebral infarction, unspecified (principal) | CPT/HCPCS: 97110 ==

== ENCOUNTER 2023-08-26 06:00 | Outpatient (RCR) | payer BC, SELFPAY | END 2023-09-24 23:59 | disposition home or self-care (01) | LOC: SST 06:00 | PROVIDERS: PCP Family Medicine; Visit Provider Internal Medicine | DX: R13.10 Dysphagia, unspecified (principal) | CPT/HCPCS: 92507 ==

== ENCOUNTER 2023-09-01 07:23 | Outpatient (CLI) | payer BC, SELFPAY ==
[2023-09-01 08:09] LABS: Valproic Acid Level 41.7 ug/mL (50-100)
== END 2023-09-01 07:24 | disposition home or self-care (01) ==
LOC: LAB 07:25
PROVIDERS: PCP Family Medicine; Visit Provider Psychiatry & Neurology Neurology
DX: D68.51 Activated protein C resistance (principal)
CPT/HCPCS: 36415; 80164

== ENCOUNTER 2023-09-25 06:00 | Outpatient (RCR) | payer BC, SELFPAY | END 2023-10-25 23:59 | disposition home or self-care (01) | LOC: SPT 06:00 | PROVIDERS: Visit Provider Family Medicine | DX: I63.9 Cerebral infarction, unspecified (principal) | CPT/HCPCS: 97110; 97164 ==

== ENCOUNTER 2023-09-25 06:00 | Outpatient (RCR) | payer BC, SELFPAY | END 2023-10-25 23:59 | disposition home or self-care (01) | LOC: SST 06:00 | PROVIDERS: Visit Provider Internal Medicine | DX: Z86.73 Personal history of transient ischemic attack (TIA), and cerebral infarction without residual deficits (principal) | CPT/HCPCS: 92507; 92523 ==

== ENCOUNTER 2023-10-09 11:13 | Emergency (ER) | payer BC, SELFPAY ==
[2023-10-09 11:17] VITALS: BP 160/117; PULSE 141; RESP 17; O2SAT 96; BMI 31.0
--- NOTE | 2023-10-09 11:24 | ED_ITS ---
HPI - General Adult 2 General: Chief complaint: Seizure Stated complaint: Seizure Time Seen by Provider: 10/09/23 11:16 History of Present Illness: Patient presents by EMS to the ER from [facility] for having 3 seizures today at the clinic. These were witnessed by the staff there. Patient does not have a history of having seizures. Patient does have a history of right MCA ischemic stroke in the past. Patient does see Dr. Leal neurology. Patient was left with some expressive aphasia and a tremor in her right hand. Today she has worsening expressive aphasia and a right tremor in her leg right leg per her . Stroke alert was called Dr. Joyce did arrive to the ER and evaluate the patient. Patient had some rapid improvement during the exam. Review of Systems 2 General: Reports: 10 or more systems reviewed and unremarkable except in HPI and below PFSH ED 2 PFSH: Medical History Stroke Hypertension Chest pain Surgical History Hx of appendectomy Tubal ligation status History of surgical removal of meniscus of knee Family History Other CAD (coronary artery disease) Family history of premature coronary artery disease Social History Smoking and tobacco/nicotine status: never used tobacco/nicotine Alcohol intake: never Substance/Drug Use: never Household members: spouse Housing: House Physical Exam 2 Const: COMMON NORMALS: no acute distress, average body habitus, patient oriented x3, no limitations, healthy appearing, alert and well nourished HENMT: COMMON NORMALS: normocephalic, atraumatic, hearing grossly normal bilaterally, external ears normal, Normal external nose present, moist oral mucous membranes and oropharynx normal HEAD & SCALP: normocephalic and atraumatic NOSE: Normal external nose present EXTERNAL EAR: Yes external ears normal Eye: COMMON NORMALS: Equal, round and reactive pupils present, EOMs intact bilaterally, conjunctivae normal and no scleral icterus CONJUNCTIVA: Yes conjunctivae normal PUPIL: Yes Equal, round and reactive pupils present O THER: Mild right eyelid droop. Neck/C-Spine: COMMON NORMALS: full ROM, no lymphadenopathy, supple, no meningeal signs, no JVD and Thyroid normal THYROID: Thyroid normal Chest: COMMONS NORMALS: normal inspection of the chest and normal palpation of entire chest wall Resp: COMMON NORMALS: normal respiratory effort, No retractions, No use of accessory muscles and clear to auscultation bilaterally AUSCULTATION: clear to auscultation bilaterally Cardio: COMMON NORMALS: no JVD, regular rhythm, S1 normal heart sound present, S2 normal heart sound present, No gallops present (Cardio), No clicks present (Cardio), No murmurs present (Cardio) and No rub (Cardio); negative for regular rate (Tachycardic) RATE: abnormal rate (Tachycardic) RHYTHM: regular rhythm HEART SOUNDS: S1 normal heart sound present and S2 normal heart sound present GI: COMMON NORMALS: Normal to inspection, nondistended, normoactive bowel sounds present, Soft to palpation, non-tender, No hepatosplenomegaly present and no masses PALPATION: Yes Soft to palpation and Yes No hepatosplenomegaly present Extremity: OTHER: Consistent tremor in right upper extremity with intermittent tremor in right lower extremities and left upper extremities. Strength equal bilateral upper and lower extremities. Neuro: COMMON NORMALS: patient oriented x3 SENSORIUM/ORIENTATION: Yes alert MENINGEAL SIGNS: Yes no meningeal signs Course 2 Vital Signs: Vital signs: Vital Signs Pulse Rate 138 H 10/09/23 14:21 Respiratory Rate 17 10/09/23 11:17 Blood Pressure 154/97 10/09/23 14:21 Pulse Oximetry 97 10/09/23 14:21 Oxygen Delivery Me thod Room Air 10/09/23 14:21 MDM - General Adult Medical Decision Making Patient presented via EMS secondary to weakness seizures with pertinent [place]. Stroke alert was called Dr. Joyce did arrive in ER and evaluated the patient. Patient has functional neurologic disorder. We do not think it is a stroke. But patient was worked up in the normal strokelike fashion. Patient was given Ativan IV and her symptoms resolved. Patient be discharged home and is instructed to follow-up with her neurologist and family practice physician. Differential Diagnosis Stroke, seizure, functional neurologic disorder. Medical Records I reviewed the patient's medical records. Lab Data I reviewed the patient's lab results. 10/09/23 11:50 10/09/23 11:50 Laboratory Results WBC 10.85 10^3/uL (3.29-11.43) 10/09/23 11:50 RBC 4.91 10^6/uL (3.85-5.65) 10/09/23 11:50 Hgb 14.70 g/dL (11.27-16.99) 10/09/23 11:50 Hct 43.3 % (36-47) 10/09/23 11:50 MCV 88.2 fl (85-98) 10/09/23 11:50 MCH 29.9 pg (27-33) 10/09/23 11:50 MCHC 33.9 g/dL (30-55) 10/09/23 11:50 RDW 12.4 % (12.1-15.1) 10/09/23 11:50 Plt Count 377 10^3/cmm (157-399) 10/09/23 11:50 MPV 8.7 fL (7.4-10.4) 10/09/23 11:50 Neut % (Auto) 75.7 % 10/09/23 11:50 Lymph % (Auto) 17.2 % 10/09/23 11:50 [place] % (Auto) 5.4 % 10/09/23 11:50 Eos % (Auto) 1.0 % 10/09/23 11:50 Baso % (Auto) 0.3 % 10/09/23 11:50 Neut # (Auto) 8.21 10^3/uL (1.8-7.7) H 10/09/23 11:50 Lymph # (Auto) 1.9 10^3/uL (0.8-4.8) 10/09/23 11:50 [place] # (Auto) 0.6 10^3/uL (0.2-0.9) 10/09/23 11:50 Eos # (Auto) 0.1 10^3/uL (0.0-0.8) 10/09/23 11:50 Baso # (Auto) 0.0 10^3/uL (0.0-0.1) 10/09/23 11:50 Nucleated RBC % (auto) 0 % 10/09/23 11:50 Nucleated RBCs # 0.0 /100WBC 10/09/23 11:50 PT 22.60 SECONDS (12.1-14.9) H 10/09/23 11:50 INR 1.92 (0.8-1.2) H 10/09/23 11:50 Sodium 138 mmol/L (136-145) 10/09/23 11:50 Potassium 4.3 mmol/L (3.5-5.1) 10/09/23 11:50 Chloride 100 mmol/L (98-107) 10/09/23 11:50 Carbon Dioxide 23 mmol/L (22-29) 10/09/23 11:50 Anion Gap 19.3 (5-19) H 10/09/23 11:50 BUN 14 mg/dL (6-20) 10/09/23 11:50 Creatinine 0.8 mg/dL (0.5-0.9) 10/09/23 11:50 GFR Calculation 79.0 mL/min (90-130) L 10/09/23 11:50 Glucose 116 mg/dL (65-115) H 10/09/23 11:50 POC Glucose 101 mg/dL (70-110) 10/09/23 11:36 Calculated Osmolality 287 mOsm/kg (285-295) 10/09/23 11:50 Calcium 9.1 mg/dL (8.5-10.5) 10/09/23 11:50 Magnesium 1.9 mg/dL (1.7-2.3) 10/09/23 11:50 Total Bilirubin 0.5 mg/dL (0.15-1.2) 10/09/23 11:50 AST 17 U/L (0-32) 10/09/23 11:50 ALT 28 U/L (0-33) 10/09/23 11:50 Alkaline Phosphatase 125 U/L (35-105) H 10/09/23 11:50 C-Reactive Protein 7.1 mg/L (0.0-4.9) H 10/09/23 11:50 Total Protein 7.2 g/dL (6.6-8.7) 10/09/23 11:50 Albumin 4.5 g/dL (3.5-5.2) 10/09/23 11:50 Globulin 2.7 g/dL (1.3-4.6) 10/09/23 11:50 TSH 0.67 uIU/mL (0.27-4.20) 10/09/23 11:50 Valproic Acid 50.5 ug/mL (50-100) 10/09/23 11:50 All radiology interpretation(s) finalized by discharge Discharge Plan Discharge Patient Disposition: Home Clinical Impression: Functional neurological symptom disorder with attacks or seizures Condition: Stable Prescriptions: No Action atorvastatin 80 mg tablet 80 mg PO QAM valsartan 80 mg tablet 80 mg PO QAM venlafaxine 150 mg capsule,extended release 24hr 150 mg PO QAM aspirin 81 mg tablet,delayed release (DR/EC) 81 mg PO QAM amlodipine 10 mg tablet 10 mg PO QAM divalproex [Depakote] 250 mg tablet,delayed release (DR/EC) 250 mg PO QID Qty: 180 2RF Rx Instructions: @07:00,11:00,15:00,19:00 pantoprazole 40 mg tablet,delayed release (DR/EC) 40 mg PO BID buspirone 5 mg tablet 5 mg PO BID Qty: 30 2RF warfarin 1 mg tablet See Rx Instructions .ROUTE .COMPLEX Rx Instructions: 3mg po once a day on mon,wed and fri 2mg po once a day on thu,,,sat metoprolol tartrate 25 mg tablet 25 mg PO BID Discharge Orders: Discharge ED (Routine); Ordered 10/09/23 Ordered By: Mark Iniguez Referrals: Rob Franco MD [Primary Care Provider] - 1 week Patient Instructions: Conversion Disorder (ED) Activity Restrictions/Additional Instructions: Please follow-up with your neurologist and/or family practice physician within next 7 to 10 days for further evaluation testing. If your symptoms worsen please feel free to return to the ER. Coding Level of Care Code ED Circuit Design Engineer for Bhanu Keyes
--- NOTE | 2023-10-09 11:27 | CT_ITS ---
WS: [id number] CT scan of the head, 10/09/2023 Clinical Data: new oset seizure, aphasia, right sided facial droop Comparison: CT head, 08/04/2023 DLP: 1089.[address] scans at [facility] use at least one of these dose optimization techniques: automated e xposure control; mA and/or kV adjustment per patient size (includes targeted exams where dose is matc hed to clinical indication); or iterative reconstruction. Findings: The ventricular system is normal without shift. No recent infarct or hemorrhage is seen. There are no abnormal intracerebral masses. The cerebellum and brainstem are not remarkable. Bony windows of the skull and skull base show no fractures or erosions. The mastoid air cells, internal wholesaler al auditory canals, sella turcica, intraorbital contents, and paranasal sinuses are unremarkable. The re is nasal septal deviation from left to right. Impression: Negative CT scan of the head
--- NOTE | 2023-10-09 11:28 | XR_ITS ---
WS: [id number] Portable AP upright chest, 10/09/2023 Clinical Data: seizure Comparison: Portable chest, 02/27/2023 Findings: No nodules, masses or effusions are seen. The heart is normal. The pulmonary vascularity is not increased. No pneumonia or pneumothorax is seen. Impression: Negative chest.
[2023-10-09 11:49] LABS: Glucose Point of Care 101 mg/dL (70-110)
[2023-10-09 11:56] LABS: Basophils % 0.3 %; Eosinophils # 0.1 10^3/uL (0.0-0.8); Hematocrit 43.3 % (36-47); Lymphocytes # 1.9 10^3/uL (0.8-4.8); Lymphocytes % 17.2 %; Mean Corpuscular HGB Conc 33.9 g/dL (30-55); Mean Corpuscular Hemoglobin 29.9 pg (27-33); Mean Corpuscular Volume 88.2 fl (85-98); Mean Platelet Volume 8.7 fL (7.4-10.4); Monocytes # 0.6 10^3/uL (0.2-0.9); Monocytes % 5.4 %; Neutrophils # 8.21 10^3/uL (1.8-7.7); Neutrophils % 75.7 %; Nucleated Red Blood Cells % 0 %; Platelet Count 377 10^3/cmm (157-399); Red Blood Count 4.91 10^6/uL (3.85-5.65); Red Cell Distribution Width 12.4 % (12.1-15.1); White Blood Count 10.85 10^3/uL (3.29-11.43)
[2023-10-09 12:02] VITALS: BP 106/83
[2023-10-09 12:09] LABS: INR 1.92 (0.8-1.2)
[2023-10-09 12:21] LABS: Valproic Acid Level 50.5 ug/mL (50-100)
[2023-10-09 12:25] LABS: Alanine Aminotransferase 28 U/L (0-33); Albumin Level 4.5 g/dL (3.5-5.2); Alkaline Phosphatase 125 U/L (35-105); Anion Gap 19.3 (5-19); Aspartate Amino Transferase 17 U/L (0-32); Blood Urea Nitrogen 14 mg/dL (6-20); C Reactive Protein 7.1 mg/L (0.0-4.9); Calcium 9.1 mg/dL (8.5-10.5); Carbon Dioxide 23 mmol/L (22-29); Chloride 100 mmol/L (98-107); Globulin 2.7 g/dL (1.3-4.6); Glucose 116 mg/dL (65-115); Magnesium 1.9 mg/dL (1.7-2.3); Osmolality Calculated 287 mOsm/kg (285-295); Potassium 4.3 mmol/L (3.5-5.1); Sodium 138 mmol/L (136-145); Thyroid Stimulating Hormone 0.67 uIU/mL (0.27-4.20); Total Bilirubin 0.5 mg/dL (0.15-1.2); Total Protein 7.2 g/dL (6.6-8.7)
[2023-10-09 12:29] VITALS: BP 146/93
--- NOTE | 2023-10-09 12:44 | ECG_ITS ---
[facility] Test Date: 2023-10-09 Pat Name: Donis Chapman Department: Room: Gender: Female Sales Intern: : 1980 Requested By: Mark Iniguez Order Number: [id number] Reading MD: Jean Musa M.D. Measurements Intervals [place] Rate: 127 P: 14 UT: 132 QRS: 17 QRSD: 93 T: 28 QT: 400 QTc: 582 Interpretive Statements SINUS TACHYCARDIA NONSPECIFIC T-WAVE ABNORMALITY ABNORMAL RHYTHM ECG Compared to ECG 07/09/2023 07:55:38 T-wave abnormality now present Electronically Signed On 10-09-2023 13:43:48 TRANSMISSION REPAIRER by Jean Musa M.D. [email or web address]
--- NOTE | 2023-10-09 12:48 | PM.SAN ---
Stroke Alert Activation ED Arrival Date: 10/09/23 ED Arrival Time: 11:17 ED Physican at Bedside: 11:16 Last Known Normal/at Baseline: 1-2 hours ago Other Last Known Well Infomation: I was called stat stroke team. It was not clear whether the patient was having a stroke or seizure. She came in through triage and Dr. Iniguez followed her from triage onto CAT scan and I talked with emergency department staff and agreed to come directly to the emergency department. I took time to review my critical care note from 03/02/2023 and most recent progress report from Dr. Leal. Briefly, I recall this patient is having a functional neurologic episode and may and I could not rule out an ischemic stroke and treated her with tPA, knowing that the chances were high that it was a functional event. She has subsequently been seen by Dr. Leal and he has suspected that her tremor is functional. She is currently on medical leave for diagnosis of stroke. This morning she developed a tremor and could not control it. It was in both arms. Right arm was more than the left. Her speech was halting. Her brought her to the ER. On my exam the patient had an arrhythmic bilateral upper extremity tremor that I was able to entrain to a stimulus. She had waxing and waning hesitating speech pattern that was consistent with a functional speech disorder. She had tremulous movements in the legs and could not elevate either leg from the bed. These multifocal findings with atypical features were all suggestive of a functional neurologic event. I talked with the patient and her about functional neurologic disorder and I directed them to the website [email or web address]. Her found this to be very helpful and said it gave him insight on how to treat the patient. I gave the patient and her a chance to ask questions. I conferred with Dr. Iniguez. I conferred with the precision farming coordinator and we had a timeout and agreed that the patient was not a candidate for thrombolytic therapy. I am aware that this patient has factor V Leiden deficiency which places her at risk for venous thrombosis. In the leisure at the time I will comment that her brain MRI after the strokelike event was negative for acute infarct. MR venogram 03/01/2023 showed asymmetric dural venous sinuses of no consequence. CT angiogram 05/29/2023 read by virtual radiology suggests focal fishman of moderate stenosis in the proximal superior posterior cerebellar arteries. I reviewed that study and I am not convinced by that finding. The major arteries are patent. [place] was unremarkable. The patient was satisfied with the discussion. Her tremor was markedly attenuated after 1 mg of IV Ativan. I took time to screen her for current stresses and she denies any stressful events. Her parents and 3 brothers are in good health except 1 brother has had epilepsy for a lifetime. Stroke Alert Activated by: Triage Stroke Alert Activation Time: : Stroke MD @ Bedside Time: : NIH Stroke Scale Time: :30 NIH stroke score NIHSS: Level Of Consciousness - 1a: 0 Level Of Consciousness Questions - 1b: Both Correct Level Of Consciousness Commands - 1c: Both Correct Best Gaze - 2: Normal Visual Banda - 3: No Visual Loss Facial Palsy - 4: Normal Motor Arm Right - 5: Drift Motor Arm Left - 5: Drift Motor Leg Right - 6: Drift Motor Leg Left - 6: Drift Limb Ataxia - 7: Absent Sensory - 8: Mild To Moderate Loss Best Language - 9: Mild/Moderate Aphasia Dysarthia - 10: Mild/Moderate Dysarthia Extinction And Inattention - 11: 0 Score: Total Score: 7 Stroke Alert Data/Treatment Time to CT of Head: :25 CT Results Time: :36 CT Impression: Normal tPA Contraindication: tPA Contraindication: Treatment not indcated and Medical contraindication tPA Admin Prior to Arrival: No Patient & Family Educated on: Cause of Stroke, Treament Plan and Prognosis Other Information: The patient's neurologic exam was invalid. She had a coarse bilateral upper extremity tremor and her drift was secondary to her atypical tremor which could be entrained to a stimulus consistent with psychogenic tremor. Similarly, her inability to lift her legs was secondary to tremulous movements and not consistent with an ischemic stroke. Her hesitating speech pattern that fluctuated throughout my visit with consistent with functional neurologic episode. 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 She is not having a headache. She denies that headaches are part of her experience. Critical Care Time Critical Care Time: 30 - 74 mins Additional information about critical care time: 65 minutes A&P Assessment and plan (1) Functional neurological symptom disorder with attacks or seizures: Functional neurologic disorder. This is not an ischemic stroke. This is much more difficult and time-consuming than an ischemic stroke. I took time to make sure that the patient and her had clear understanding. (2) Factor 5 Leiden mutation, heterozygous: She has factor V Leiden and is therefore subject to venous thrombosis although so far has not been demonstrated and was carefully screened at the time of her last neurologic event in February. Coding Level of Care Code Acute Code for g Fwd Diagnoses Functional neurological symptom disorder with attacks or seizures F44.5 Factor 5 Leiden mutation, heterozygous D68.51
[2023-10-09] MEDS: sodium chloride 0.9% 1,000 ML 999 ML IV (13:19)
[2023-10-09 13:47] VITALS: BP 125/98; PULSE 104; O2SAT 95
[2023-10-09 14:21] VITALS: BP 154/97; PULSE 138; O2SAT 97
== END 2023-10-09 14:42 | disposition home or self-care (01) ==
PROVIDERS: Emergency Provider Emergency Medicine; PCP Family Medicine
DX: R29.818 Other symptoms and signs involving the nervous system (principal); Z79.82 Long term (current) use of aspirin; Z79.01 Long term (current) use of anticoagulants; I10 Essential (primary) hypertension; Z86.73 Personal history of transient ischemic attack (TIA), and cerebral infarction without residual deficits
CPT/HCPCS: 36415; 36416; 70450; 71045; 80053; 80164; 82962; 83735; 84443; 85025; 85610; 86140; 93005; 96374; 96376; 99285; J2060; J7030

== ENCOUNTER 2023-10-26 06:00 | Outpatient (RCR) | payer BC, SELFPAY | END 2023-11-25 23:59 | disposition home or self-care (01) | LOC: SST 06:00 | PROVIDERS: PCP Family Medicine; Visit Provider Internal Medicine | DX: I69.322 Dysarthria following cerebral infarction (principal); I69.320 Aphasia following cerebral infarction | CPT/HCPCS: 92507 ==

== ENCOUNTER 2023-10-26 06:00 | Outpatient (RCR) | payer BC, SELFPAY | END 2023-11-25 23:59 | disposition home or self-care (01) | LOC: SPT 06:00 | PROVIDERS: Visit Provider Family Medicine | DX: I63.9 Cerebral infarction, unspecified (principal) | CPT/HCPCS: 97110 ==

== ENCOUNTER 2023-11-08 14:54 | Emergency (ER) | payer BC, SELFPAY ==
[2023-11-08 15:01] VITALS: BP 157/103; PULSE 92; RESP 16; TEMP 37.1; O2SAT 98; BMI 38.4
--- NOTE | 2023-11-08 16:22 | XRR_ITS ---
PROCEDURE INFORMATION: Exam: XR Left Mandible Exam date and time: 11/08/2023 4:54 PM Age: 43 years old Clinical indication: Jaw pain; Prior surgery; Surgery date: 6+ months; Patient HX: Lt madibular pain with limited rom; HX of broken lt mandible/surgical intervention and lt dislocation TECHNIQUE: Imaging protocol: XR of the left mandible. Views: 4 or more views COMPARISON: CT head thrombolytic [id number] 10/09/2023 11:26 AM FINDINGS: Sinuses: Grossly well aerated. Bones/joints: The calvarium and facial bones are grossly intact. Mandible is grossly intact. The mandibular ramus and condyles are partially obscured by overlapping structures. Soft tissues: No gross soft tissue abnormality. XR/XR mandible min 4V [id number] IMPRESSION: 1. Mandible is grossly intact. If there is ongoing clinical concern, consider correlation with CT maxillofacial.
--- NOTE | 2023-11-08 16:23 | W.ED.GENADLT ---
HPI - General Adult General: Chief complaint: Extremity Problem,Nontraumatic Stated complaint: jaw pains Time Seen by Provider: 11/08/23 16:19 Source: patient Mode of arrival: ambulatory History of Present Illness: 43-year-old female presents emergency room with complaints of left-sided jaw pain. She was yawning and sneezed felt like her jaw dislocated. Seem to spontaneously reduce itself then she yawned again and it came out again. No trauma. She states she has dislocated her jaw in the past. Onset (ago): minute(s) PFSH ED PFSH: Medical History Stroke Hypertension Chest pain Surgical History Hx of appendectomy Tubal ligation status History of surgical removal of meniscus of knee Family History Other CAD (coronary artery disease) Family history of premature coronary artery disease Social History Smoking and tobacco/nicotine status: never used tobacco/nicotine Alcohol intake: never Substance/Drug Use: never Household members: spouse Housing: House Physical Exam Narrative: EXAM NARRATIVE: No obvious deformity on appearance with palpation appears to be the mandible is in proper location she is hesitant to open her jaw but can open at least 2 inches. Closes without deviation. Course Vital Signs: Vital signs: Vital Signs Temperature 98.7 F 11/08/23 15:01 Pulse Rate 92 11/08/23 15:01 Respiratory Rate 16 11/08/23 15:01 Blood Pressure 157/103 11/08/23 15:01 Pulse Oximetry 98 11/08/23 15:01 Oxygen Delivery Me thod Room Air 11/08/23 15:01 MDM - General Adult Medical Decision Making Plain films did not show any significant abnormality of the CT confirmed no fracture and no dislocation. Suspect she may have either subluxed it or maybe even completely dislocated and then reduced it spontaneously. In either event there is no dislocation at this time. Discharge home Tylenol ibuprofen avoid thick foods and meats as chewing firm food is likely to worsen pain or increased chance of dislocation. Discharge home follow-up as needed Medical Records I reviewed the patient's medical records. Lab Data I reviewed the patient's lab results. Radiology Impressions Mandible X-Ray 11/08/23 16:22 IMPRESSION: 1. Mandible is grossly intact. If there is ongoing clinical concern, consider correlation with CT maxillofacial. Face CT 11/08/23 17:29 IMPRESSION: 1. No evidence of facial bone fracture. Mandible is intact. All radiology interpretation(s) finalized by discharge Discharge Plan Discharge Patient Disposition: Home Clinical Impression: TMJ pain dysfunction syndrome Condition: Stable Prescriptions: No Action atorvastatin 80 mg tablet 80 mg PO QAM valsartan 80 mg tablet 80 mg PO QAM venlafaxine 150 mg capsule,extended release 24hr 150 mg PO QAM aspirin 81 mg tablet,delayed release (DR/EC) 81 mg PO QAM amlodipine 10 mg tablet 10 mg PO QAM divalproex [Depakote] 250 mg tablet,delayed release (DR/EC) 250 mg PO QID Qty: 180 2RF Rx Instructions: @07:00,11:00,15:00,19:00 pantoprazole 40 mg tablet,delayed release (DR/EC) 40 mg PO BID buspirone 5 mg tablet 5 mg PO BID 90 Days Qty: 180 2RF warfarin 1 mg tablet See Rx Instructions .ROUTE .COMPLEX Rx Instructions: 3mg po once a day on mon,wed and fri 2mg po once a day on thu,,th,sat metoprolol tartrate 25 mg tablet 25 mg PO BID Discharge Orders: Discharge ED (Routine); Ordered 11/08/23 Ordered By: Anton Tapia Referrals: Rob Franco MD [Primary Care Provider] - Discharge Diet: Soft Mechanical Discharge Activity: Resume usual activity Patient Instructions: Opioid Safety, Pain Management Activity Restrictions/Additional Instructions: Thank you for choosing [facility] for your healthcare needs today. Please realize this is an emergency room and that we are providing you with a medical screening exam and this may not be complete and all inclusive of all the testing and or work up that you may need to determine your ailment or severity of your illness. It is very important that you follow up as instructed or that you return to the Emergency Department should you have concerns or if your condition changes or worsens in any way. You are seen today complaining of jaw pain after a sensation that it dislocated. Both the plain x-ray and the CT did not show any dislocation or fracture. It is possible it sublux or even fully dislocated and then reduced itself which would cause a discomfort but still have negative imaging. Avoid chewing heavy breads or meats for the next several days use Tylenol or Profen for pain Coding Level of Care Code ED Gunsmith Apprentice for Bhanu Keyes
--- NOTE | 2023-11-08 17:00 | PC.NURSE ---
Pt reports left sided jaw pain after yawning today, hx of disclocation and states this feels the same
[2023-11-08] MEDS: morphine 4 mg/mL SDV 1 mL IVP (17:03)
[2023-11-08] MEDS: ondansetron 2 mg/ML SDV 2 mL 4 MG IVP (17:03)
--- NOTE | 2023-11-08 17:29 | CTR_ITS ---
PROCEDURE INFORMATION: Exam: CT Maxillofacial Without Contrast; Mandible Exam date and time: 11/08/2023 5:46 PM Age: 43 years old Clinical indication: Jaw pain; Additional info: L dislocated mandible TECHNIQUE: Imaging protocol: Computed tomography maxillofacial without contrast. Exam focused on the mandible. Radiation optimization: All CT scans at this facility use at least one of these dose optimization techniques: automated exposure control; mA and/or kV adjustment per patient size (includes targeted exams where dose is matched to clinical indication); or iterative reconstruction. COMPARISON: CR (HEAD, ) 11/08/2023 4:54 PM RADIATION DOSE METRICS: Total DLP (mGy-cm): 572.38 FINDINGS: Bones/joints: No evidence of facial bone fracture. The mandible is intact. TMJs are intact. The mastoids and middle ears are clear. Bony orbits are intact. The globes, intraconal/extraconal fat, extraocular muscles and optic nerves are grossly unremarkable. Paranasal sinuses: Well aerated. Soft tissues: Grossly unremarkable. Few prominent though nonenlarged cervical chain nodes on the left. No evidence of acute intracranial abnormality within the field of view. CT/CT facial bones wo con* [id number] IMPRESSION: 1. No evidence of facial bone fracture. Mandible is intact.
[2023-11-08 18:28] VITALS: BP 171/86; PULSE 88; RESP 15; O2SAT 98
== END 2023-11-08 18:28 | disposition home or self-care (01) ==
PROVIDERS: Emergency Provider Family Medicine; PCP Family Medicine
DX: M26.602 Left temporomandibular joint disorder, unspecified (principal); I10 Essential (primary) hypertension; Z86.73 Personal history of transient ischemic attack (TIA), and cerebral infarction without residual deficits; Z79.82 Long term (current) use of aspirin; Z79.01 Long term (current) use of anticoagulants
CPT/HCPCS: 70110; 70486; 96374; 96375; 99285; J2270; J2405

== ENCOUNTER 2023-11-10 06:00 | Outpatient (RCR) | payer BC, SELFPAY | END 2023-11-25 23:59 | disposition home or self-care (01) | LOC: SOT 06:00 | PROVIDERS: PCP Family Medicine; Visit Provider Family Medicine | DX: I69.998 Other sequelae following unspecified cerebrovascular disease (principal); I10 Essential (primary) hypertension | CPT/HCPCS: 97110; 97167 ==

== ENCOUNTER 2023-11-26 06:00 | Outpatient (RCR) | payer BC, SELFPAY | END 2023-12-24 23:59 | disposition home or self-care (01) | LOC: SST 06:00 | PROVIDERS: PCP Family Medicine; Visit Provider Internal Medicine | DX: I69.322 Dysarthria following cerebral infarction (principal); I69.320 Aphasia following cerebral infarction | CPT/HCPCS: 92523 ==

== ENCOUNTER 2023-11-26 06:00 | Outpatient (RCR) | payer BC, SELFPAY | END 2023-12-24 23:59 | disposition home or self-care (01) | LOC: SPT 06:00 | PROVIDERS: PCP Family Medicine; Visit Provider Family Medicine | DX: I63.9 Cerebral infarction, unspecified (principal) | CPT/HCPCS: 97110 ==

== ENCOUNTER 2023-12-02 16:25 | Observation (INO) | payer BC, SELFPAY ==
[2023-12-02 16:31] VITALS: BP 158/107; PULSE 117; RESP 18; O2SAT 95
--- NOTE | 2023-12-02 16:32 | XRR_ITS ---
PROCEDURE INFORMATION: Exam: XR Chest Exam date and time: 12/02/2023 4:51 PM Age: 43 years old Clinical indication: Other: AMS; Additional info: CVA TECHNIQUE: Imaging protocol: Radiologic exam of the chest. Views: 1 view. COMPARISON: CR XR chest 1V portable [id number] 10/09/2023 11:42 AM FINDINGS: Lungs: No focal consolidation. Pleural spaces: No evidence of pneumothorax. No evidence of pleural effusion. Heart/Mediastinum: Cardiomediastinal silhouette is within normal limits. Bones/joints: No evidence of acute osseous abnormality. XR/XR chest 1V portable [id number] IMPRESSION: 1. No acute cardiopulmonary abnormality.
--- NOTE | 2023-12-02 16:32 | CTR_ITS ---
PROCEDURE INFORMATION: Exam: CTA Head Without And With Contrast, Arteriography Exam date and time: 12/02/2023 4:44 PM Age: 43 years old Clinical indication: Stroke-like symptoms; Speech disturbance; Additional info: CVA TECHNIQUE: Imaging protocol: Computed tomographic angiography of the head without and with contrast. Exam focused on the arteries. 3D rendering (Not supervised by radiologist): MIP and/or 3D reconstructed images were created by the technologist. Radiation optimization: All CT scans at this facility use at least one of these dose optimization techniques: automated exposure control; mA and/or kV adjustment per patient size (includes targeted exams where dose is matched to clinical indication); or iterative reconstruction. Contrast material: OMNI 350; Contrast volume: 100 ml; Contrast route: INTRAVENOUS (IV); Other technique: STROKE PROTOCOL was implemented. COMPARISON: CT angio headneck* [id number] 07/09/2023 7:48 AM RADIATION DOSE METRICS: Total DLP (mGy-cm): 1109 FINDINGS: ANTERIOR CIRCULATION: Right internal carotid artery: No evidence of thrombosis or aneurysm. No evidence of hemodynamically significant stenosis. No evidence of vascular injury. Right middle cerebral artery: No evidence of thrombosis or aneurysm. Right anterior cerebral artery: No evidence of thrombosis or aneurysm. Left internal carotid artery: No evidence of thrombosis or aneurysm. No evidence of hemodynamically significant stenosis. No evidence of vascular injury. Left middle cerebral artery: No evidence of thrombosis or aneurysm. Left anterior cerebral artery: No evidence of thrombosis or aneurysm. POSTERIOR CIRCULATION: Right vertebral artery: No evidence of thrombosis or aneurysm. No evidence of vascular injury. Left vertebral artery: Slightly dominant. No evidence of thrombosis or aneurysm. No evidence of vascular injury. Basilar artery: No evidence of thrombosis or aneurysm. Right posterior cerebral artery: No evidence of thrombosis or aneurysm. Left posterior cerebral artery: origin. No evidence of thrombosis or aneurysm. HEAD: Brain: No evidence of intracranial hemorrhage. No evidence of mass effect or midline shift. Pate-white differentiation is grossly maintained. Basilar cisterns are patent. Cerebral ventricles: No hydrocephalus. Bones/joints: The calvarium is intact. Craniocervical junction is intact. Paranasal sinuses: Well aerated. Mastoid air cells: Mastoids and middle ears are clear. Soft tissues: No gross soft tissue abnormality. PROCEDURE INFORMATION: Exam: CTA Neck Without And With Contrast Exam date and time: 12/02/2023 4:44 PM Age: 43 years old Clinical indication: Stroke-like symptoms; Speech disturbance; Additional info: CVA TECHNIQUE: Imaging protocol: Computed tomographic angiography of the neck without and with contrast. Exam focused on the cervical segments of the vasculature. 3D rendering (Not supervised by radiologist): MIP and/or 3D reconstructed images were created by the technologist. Radiation optimization: All CT scans at this facility use at least one of these dose optimization techniques: automated exposure control; mA and/or kV adjustment per patient size (includes targeted exams where dose is matched to clinical indication); or iterative reconstruction. Contrast material: OMNI 350; Contrast volume: 100 ml; Contrast route: INTRAVENOUS (IV); COMPARISON: CT angio headneck* [id number] 07/09/2023 7:48 AM RADIATION DOSE METRICS: Total DLP (mGy-cm): 1109 FINDINGS: Right common carotid artery: No evidence of hemodynamically significant stenosis. No evidence of dissection. Right internal carotid artery: No evidence of hemodynamically significant stenosis. No evidence of dissection. Right external carotid artery: Patent. Left common carotid artery: No evidence of hemodynamically significant stenosis. No evidence of dissection. Left internal carotid artery: No evidence of hemodynamically significant stenosis. No evidence of dissection. Left external carotid artery: Patent. Right vertebral artery: Patent. No evidence of dissection. Left vertebral artery: Slightly dominant. Patent. No evidence of dissection. Soft tissues: No gross soft tissue abnormality. No evidence of fluid collection or hematoma. Bones/joints: No evidence of acute fracture or subluxation of the cervical spine. [facility] [id number] IMPRESSION: 1. No evidence of large vessel occlusion or acute thrombosis in the head. ASSESSMENT: ASPECTS ([place] Stroke Program Early CT Score) is 10. IMPRESSION: 1. No evidence of acute thrombosis or vascular injury in the neck. REFERENCES: NASCET CRITERIA. The degree of stenosis in the cervical segment of the internal carotid artery is based on NASCET criteria. Normal is no stenosis. Mild is less than 50% stenosis. Moderate is 50-69% stenosis. Severe is 70% to 99% stenosis. Total occlusion is no detectable patent lumen.
--- NOTE | 2023-12-02 16:39 | ECG_ITS ---
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 Measurements Intervals [place] Rate: 115 P: 36 IA: 158 QRS: 32 QRSD: 90 T: 32 QT: 268 QTc: 372 Interpretive Statements SINUS TACHYCARDIA LOW QRS VOLTAGE IN PRECORDIAL LEADS [QRS DEFLECTION < 1.0 mV IN CHEST LEADS] NONSPECIFIC T-WAVE ABNORMALITY ABNORMAL RHYTHM ECG Compared to ECG 10/09/2023 12:44:30 Low QRS voltage now present T-wave abnormality still present Electronically Signed On 12-03-2023 11:39:33 [employer] by Chip Webb M.D. [id number]
[2023-12-02] MEDS: methylPREDNISolone sod succ 40 mg/mL INJ IVP (16:41)
[2023-12-02] MEDS: diphenhydrAMINE 50 mg/mL SDV 1mL IVP (16:41)
[2023-12-02 16:44] LABS: Basophils % 0.3 %; Eosinophils # 0.1 10^3/uL (0.0-0.8); Eosinophils % 0.9 %; Hematocrit 48.1 % (36-47); Lymphocytes # 2.6 10^3/uL (0.8-4.8); Lymphocytes % 28.1 %; Mean Corpuscular HGB Conc 32.6 g/dL (30-55); Mean Corpuscular Volume 88.7 fl (85-98); Mean Platelet Volume 8.9 fL (7.4-10.4); Monocytes # 0.6 10^3/uL (0.2-0.9); Monocytes % 5.9 %; Neutrophils # 5.95 10^3/uL (1.8-7.7); Neutrophils % 64.4 %; Nucleated Red Blood Cells % 0 %; Platelet Count 422 10^3/cmm (157-399); Red Blood Count 5.42 10^6/uL (3.85-5.65); Red Cell Distribution Width 12.2 % (12.1-15.1); White Blood Count 9.25 10^3/uL (3.29-11.43)
[2023-12-02] MEDS: iohexol 350 mg/mL 500 mL Btl (per mL) IV (16:52)
--- NOTE | 2023-12-02 16:55 | P.CONIM_ITS ---
Providers/Reason For Consult 2 Consulting Physician/Specialty*: Malik Leal MD neurology and epilepsy Reason for Consult*: Code stroke emergency department room #11 Primary Care Provider: Rob Franco MD History of Present Illness History of Present Illness Donis Chapman is a 43 year old female with a history of Leiden factor V heterozygous mutation, treated with warfarin, remote left middle cerebral artery ischemic stroke, and intractable hemiplegic migraines.? According to the patient she woke up this morning at 7:30 AM on 12/02/2023 and was doing okay. Patient did her laundry and sent her kids to school. She stated that around 8:30 AM on 12/02/2023 she experienced dizziness and around 9:30 AM she began experiencing stuttering speech and right-sided weakness. The patient's stated that the patient blood pressure was elevated all day ranging around 160/110. He stated that he was at work and I contacted the patient and 9:45 AM and he could not understand her. The patient was brought to [facility] emergency room and code stroke was initiated at 4:33 PM on 12/02/2023. On the gurney in the emergency room department bed 11, the patient is alert and displaying stammering speech. She reports right-sided weakness, and dizziness but denied visual difficulty or headaches. NIH score = 8 although it is difficult to determine if the patient has true right arm and right leg weakness or coordination difficulty. Her stammering speech appears to be nonphysiologic and suggestive of functional neurological disorder. Patient currently undergoing stat noncontrast head CT and CT angiogram of the head and neck. Since the patient's symptoms of speech difficulty and right-sided weakness and dizziness occurred at 9:30 AM on 12/02/2023, the patient is outside of the thrombolytic window and not a candidate for intravenous tenecteplase. If the CT angiogram is suggestive of stenosis or thrombus, patient will be referred for intervention this evaluation for possible thrombectomy. Past medical history: Left MCA distribution stroke, remote CT angiogram with chronic focal narrowing of the left M1 segment, unchanged on CT angiogram of the head and neck performed on 07/09/2023 Intractable complicated migraines/hemiplegic migraines Leiden factor V heterozygous mutation, patient on warfarin Drug allergies: Codeine which resulted in nausea and vomiting Iodine which resulted in anaphylactic type reaction Latex which resulted in a rash Shellfish which which resulted in anaphylactic type reaction Current medications: Depakote 250 mg p.o. 3 times daily for intractable migraine headaches Lipitor 80 mg p.o. every morning Warfarin 4 mg p.o. every morning Valsartan 80 mg p.o. every morning Effexor 150 mg p.o. every morning Aspirin 81 mg p.o. every morning Norvasc 10 mg p.o. every morning Metoprolol 25 mg p.o. twice daily Protonix 40 mg p.o. daily Past medications: Zanaflex, melatonin Review of Systems 2 General: Reports: 10 or more systems reviewed and unremarkable except in HPI and below Medications/Allergies Home Medications Medication Instructions Recorded Confirmed Last Taken Type pantoprazole 40 mg tablet,delayed 40 mg PO BID 04/03/23 10/09/23 10/09/23 History release amlodipine 10 mg tablet 10 mg PO QAM 06/16/23 10/09/23 10/09/23 History aspirin 81 mg tablet,delayed 81 mg PO QAM 06/16/23 10/09/23 10/09/23 History release atorvastatin 80 mg tablet 80 mg PO QAM 06/16/23 10/09/23 10/09/23 History valsartan 80 mg tablet 80 mg PO QAM 06/16/23 10/09/23 10/09/23 History venlafaxine 150 mg 150 mg PO QAM 06/16/23 10/09/23 10/09/23 History capsule,extended release 24 hr divalproex 250 mg tablet,delayed 250 mg PO QID #180 tabs 09/01/23 10/09/23 10/09/23 07:00 Rx release (Depakote) metoprolol tartrate 25 mg tablet 25 mg PO BID 10/09/23 10/09/23 10/09/23 History warfarin 1 mg tablet See Rx Instructions .Route .COMPLEX 10/09/23 10/09/23 Unknown History buspirone 5 mg tablet 5 mg PO BID 3 months #180 tabs 10/12/23 Unknown Rx Allergies Allergy/AdvReac Type Severity Reaction Status Date / Time codeine Allergy ADR-Vomitin Verified 10/09/23 12:35 g iodine Allergy ALGY-Anaphy Verified 10/09/23 12:35 laxis latex Allergy ALGY-Rash Verified 10/09/23 12:35 shellfish derived Allergy ALGY-Anaphy Verified 10/09/23 12:35 laxis PFSH Acute 2 PFSH: Medical History Stroke Hypertension Chest pain Surgical History Hx of appendectomy Tubal ligation status History of surgical removal of meniscus of knee Family History Other CAD (coronary artery disease) Family history of premature coronary artery disease Social History Smoking and tobacco/nicotine status: never used tobacco/nicotine Alcohol intake: never Substance/Drug Use: never Household members: spouse Housing: House Vitals/I&O/Wt Last Vital Signs Pulse 117 H 12/02/23 16:31 Resp 18 12/02/23 16:31 BP 158/107 12/02/23 16:31 Pulse Ox 95 12/02/23 16:31 O2 Del Method Room Air 12/02/23 16:31 Weight last 48 hrs Weight 262 lb Physical Exam 2 Narrative: Blood pressure 158/107 NIH score = 8 although patient's stammering speech is suggestive of nonphysiologic/functional neurological disorder type symptoms. And it is difficult to determine if the patient has true right-sided weakness. The patient is alert she is oriented to person place and situation. She is talking with rapid stuttering speech. Patient in no apparent distress. Pupils 4 mm bilaterally round reactive to light and accommodation. Extraocular movements intact. Patient intermittently partially closes the right eye lid. Cranial nerves II through XII reveals questionable right lower facial weakness but this also appears to be nonphysiologic at times and therefore functional neurological disorder type symptoms cannot be excluded. Neck supple. Motor testing 5/5 in the left arm and left leg. Patient reporting weakness in the right arm and right leg. Deep tendon reflex symmetrical plantar responses flexor bilaterally there is no clonus. Sensory examination intact to touch. It is difficult to determine if patient has extinction on double sensory stimulation. Patient reports coordination difficulty in the right arm and right leg but again this appears nonphysiologic. Throat clear. Lungs clear. Heart regular rhythm and rate. Extremities were negative for cyanosis. Data 12/02/23 16:37 12/02/23 16:37 A&P Assessment and plan (1) Stroke-like symptoms: Impression: 1. Acute onset of strokelike symptoms beginning at approximately 9:30 AM on 12/02/2023. Patient presented to the [facility] emergency room with code stroke initiated at 4:33 PM. Therefore, patient was outside of the intravenous thrombolytic window and patient was not a candidate for thrombolytics (tenecteplase). And patient on warfarin for history of remote stroke in the past and Leiden factor V heterozygous mutation 2. Left MCA distribution stroke, remote CT angiogram with chronic focal narrowing of the left M1 segment, unchanged on CT angiogram of the head and neck performed on 07/09/2023 3. Intractable complicated migraines/hemiplegic migraines 4. Leiden factor V heterozygous mutation, patient on warfarin 5. Note: Possibility of functional neurological disorder cannot be excluded. Plan: 1. Agree with obtaining stat noncontrast head CT scan and CT angiogram of the head and neck (note: Head CT revealed no acute findings and CT angiogram revealed no large vessel occlusion) 2. Since noncontrast head CT scan and CT angiogram of the head and neck is unrevealing recommend admitting patient to observation and follow NIH stroke protocol 4. Continue home medications 5. Continue warfarin and since there was no reported signs of brain hemorrhage (2) Difficulty with speech: (3) Factor 5 Leiden mutation, heterozygous: (4) Ophthalmoplegic migraine headache: (5) Chronic left arterial ischemic stroke, MCA (middle cerebral artery): (6) Hemiplegic migraine with status migrainosus: (7) Functional neurological symptom disorder with attacks or seizures: Consult Attestations 2 Medical Necessity Statement: Patient evaluated for code stroke emergency department room #11 on 12/02/2023 Coding Level of Care Code 02208 Diagnoses Stroke-like symptoms R29.90 Difficulty with speech R47.9 Factor 5 Leiden mutation, heterozygous D68.51 Ophthalmoplegic migraine headache G43.B0 Chronic left arterial ischemic stroke, MCA (middle cerebral artery) I69.30 Hemiplegic migraine with status migrainosus G43.401 Functional neurological symptom disorder with attacks or seizures F44.5
--- NOTE | 2023-12-02 16:55 | ED_ITS ---
HPI - Neuro Symptoms/Deficit 2 General: Chief Complaint: Neuro Symptoms/Deficit Stated Complaint: stroke like symptoms Time Seen by Provider: 12/02/23 16:32 Source: patient Mode of arrival: ambulatory Limitations: no limitations History of Present Illness: 43-year-old female states that 945 this morning started having slurred speech along with right-sided weakness. Patient's had a history of stroke in the past she is has a history of hemiplegic migraines as well along with functional neurologic seizures and factor V. Patient is on warfarin at home. Patient here has a stuttered speech not really slurring her words does have right-sided weakness as well with a slight right-sided facial droop Associated symptoms: Deny chest pain, headache(s), nausea or vomiting Review of Systems 2 Const: Denies: fever(s) or chills Eyes: Denies: blurry vision or eye discomfort ENMT: Denies: throat pain or dental pain Card: Denies: chest pain Resp: Denies: dyspnea GI: Denies: abdominal pain, nausea, vomiting or diarrhea Musc: Denies: neck pain or back pain Skin/Breast: Denies: rash Neuro: Reports: weakness in extremities and Slurred speech present; Denies: headache(s) PFSH ED 2 PFSH: Medical History (Updated 12/02/23 @ 17:36 by Bhupinder Galindo MD) Ischemic stroke Tear of MCL (medial collateral ligament) of knee Hemiplegic migraine with status migrainosus Chronic left arterial ischemic stroke, MCA (middle cerebral artery) Ophthalmoplegic migraine headache Stroke Hypertension Chest pain Surgical History (Updated 12/02/23 @ 17:34 by Gagan Navarro MD) History of repair of ACL Hx of appendectomy Tubal ligation status History of surgical removal of meniscus of knee Family History Other CAD (coronary artery disease) Family history of premature coronary artery disease Social History Smoking and tobacco/nicotine status: never used tobacco/nicotine Alcohol intake: never Substance/Drug Use: never Household members: spouse Housing: House NIH stroke score 2 NIHSS: Level Of Consciousness - 1a: 0 Level Of Consciousness Questions - 1b: Both Correct Level Of Consciousness Commands - 1c: Both Correct Best Gaze - 2: Normal Visual Banda - 3: No Visual Loss Facial Palsy - 4: P artial Paralysis Motor Arm Right - 5: Drift Motor Arm Left - 5: No Drift Motor Leg Right - 6: Drift Motor Leg Left - 6: No Drift Limb Ataxia - 7: Absent Sensory - 8: Normal Best Language - 9: Mild/Moderate Aphasia D ysarthia - 10: Mild/Moderate Dysarthia Extinction And Inattention - 11: 0 Score: Total Score: 6 Physical Exam 2 Const: COMMON NORMALS: patient oriented x3 HENMT: COMMON NORMALS: normocephalic and atraumatic HEAD & SCALP: n ormocephalic and atraumatic Eye: COMMON NORMALS: Equal, round and reactive pupils present and EOMs intact bilaterally PUPIL: Yes Equal, round and reactive pupils present Neck/C-Spine: COMMON NORMALS: full ROM and supple Chest: COMMONS NORMALS: normal inspection of the chest and normal palpation of entire chest wall Resp: COMMON NORMALS: normal respiratory effort, No retractions, No use of accessory muscles and clear to auscultation bilaterally AUSCULTATION: clear to auscultation bilaterally Cardio: COMMON NORMALS: regular rate, regular rhythm and No murmurs present (Cardio) RATE: regular rate RHYTHM: regular rhythm Extremity: COMMON NORMALS: normal to inspection and full ROM Neuro: COMMON NORMALS: patient oriented x3 SPEECH: abnormal speech MOTOR EXAM: No 5/5 motor strength present throughout Psych: COMMON NORMALS: mental status grossly normal, Normal thought process present and cooperative THOUGHT PROCESS: Normal thought process present Skin: COMMON NORMALS: no rashes or lesions noted and no wounds GENERAL SKIN EXAM: no rashes or lesions noted Course 2 Vital Signs: Vital signs: Vital Signs Pulse Rate 117 H 12/02/23 16:31 Respiratory Rate 18 12/02/23 16:31 Blood Pressure 158/107 12/02/23 16:31 Pulse Oximetry 95 12/02/23 16:31 Oxygen Delivery Me thod Room Air 12/02/23 16:31 MDM - Neuro Symptoms/Deficit Medical Decision Making Patient presents with a possible CVA CT and CT angio here are both negative her last known normal was 930 she is also on Coumadin she is not a tPA candidate due to timing patient seen by neurologist in the ER will admit to hospitalist for observation. Medical Records I reviewed the patient's medical records. Lab Data I reviewed the patient's lab results. 12/02/23 16:37 12/02/23 16:37 Radiology Impressions Chest X-Ray 12/02/23 16:32 IMPRESSION: 1. No acute cardiopulmonary abnormality. Head/Neck CTA 12/02/23 16:32 IMPRESSION: 1. No evidence of large vessel occlusion or acute thrombosis in the head. ASSESSMENT: ASPECTS ([place] Stroke Program Early CT Score) is 10. IMPRESSION: 1. No evidence of acute thrombosis or vascular injury in the neck. REFERENCES: NASCET CRITERIA. The degree of stenosis in the cervical segment of the internal carotid artery is based on NASCET criteria. Normal is no stenosis. Mild is less than 50% stenosis. Moderate is 50-69% stenosis. Severe is 70% to 99% stenosis. Total occlusion is no detectable patent lumen. Laboratory Results WBC 9.25 10^3/uL (3.29-11.43) 12/02/23 16:37 RBC 5.42 10^6/uL (3.85-5.65) 12/02/23 16:37 Hgb 15.70 g/dL (11.27-16.99) 12/02/23 16:37 Hct 48.1 % (36-47) H 12/02/23 16:37 MCV 88.7 fl (85-98) 12/02/23 16:37 MCH 29.0 pg (27-33) 12/02/23 16:37 MCHC 32.6 g/dL (30-55) 12/02/23 16:37 RDW 12.2 % (12.1-15.1) 12/02/23 16:37 Plt Count 422 10^3/cmm (157-399) H 12/02/23 16:37 MPV 8.9 fL (7.4-10.4) 12/02/23 16:37 Neut % (Auto) 64.4 % 12/02/23 16:37 Lymph % (Auto) 28.1 % 12/02/23 16:37 [place] % (Auto) 5.9 % 12/02/23 16:37 Eos % (Auto) 0.9 % 12/02/23 16:37 Baso % (Auto) 0.3 % 12/02/23 16:37 Neut # (Auto) 5.95 10^3/uL (1.8-7.7) 12/02/23 16:37 Lymph # (Auto) 2.6 10^3/uL (0.8-4.8) 12/02/23 16:37 [place] # (Auto) 0.6 10^3/uL (0.2-0.9) 12/02/23 16:37 Eos # (Auto) 0.1 10^3/uL (0.0-0.8) 12/02/23 16:37 Baso # (Auto) 0.0 10^3/uL (0.0-0.1) 12/02/23 16:37 Nucleated RBC % (auto) 0 % 12/02/23 16:37 Nucleated RBCs # 0.0 /100WBC 12/02/23 16:37 PT 19.70 SECONDS (12.1-14.9) H 12/02/23 16:37 INR 1.61 (0.8-1.2) H 12/02/23 16:37 APTT 50.4 SECONDS (23.9-36.7) H 12/02/23 16:37 Sodium 138 mmol/L (136-145) 12/02/23 16:37 Potassium 3.9 mmol/L (3.5-5.1) 12/02/23 16:37 Chloride 97 mmol/L (98-107) L 12/02/23 16:37 Carbon Dioxide 24 mmol/L (22-29) 12/02/23 16:37 Anion Gap 20.9 (5-19) H 12/02/23 16:37 BUN 16 mg/dL (6-20) 12/02/23 16:37 Creatinine 0.7 mg/dL (0.5-0.9) 12/02/23 16:37 GFR Calculation 92.2 mL/min (90-130) 12/02/23 16:37 Glucose 136 mg/dL (65-115) H 12/02/23 16:37 Calculated Osmolality 289 mOsm/kg (285-295) 12/02/23 16:37 Calcium 9.4 mg/dL (8.5-10.5) 12/02/23 16:37 Total Bilirubin 0.6 mg/dL (0.15-1.2) 12/02/23 16:37 AST 25 U/L (0-32) 12/02/23 16:37 ALT 32 U/L (0-33) 12/02/23 16:37 Alkaline Phosphatase 128 U/L (35-105) H 12/02/23 16:37 Total Protein 8.1 g/dL (6.6-8.7) 12/02/23 16:37 Albumin 4.6 g/dL (3.5-5.2) 12/02/23 16:37 Globulin 3.5 g/dL (1.3-4.6) 12/02/23 16:37 All radiology interpretation(s) finalized by discharge Discharge Plan Discharge Patient Disposition: Admitted As Inpatient Clinical Impression: Cerebrovascular accident Condition: Stable Prescriptions: No Action atorvastatin 80 mg tablet 80 mg PO QAM valsartan 80 mg tablet 80 mg PO QAM venlafaxine 150 mg capsule,extended release 24hr 150 mg PO QAM aspirin 81 mg tablet,delayed release (DR/EC) 81 mg PO QAM amlodipine 10 mg tablet 10 mg PO QAM divalproex [Depakote] 250 mg tablet,delayed release (DR/EC) 250 mg PO QID Qty: 180 2RF Rx Instructions: @07:00,11:00,15:00,19:00 pantoprazole 40 mg tablet,delayed release (DR/EC) 40 mg PO BID buspirone 5 mg tablet 5 mg PO BID 90 Days Qty: 180 2RF warfarin 1 mg tablet See Rx Instructions .ROUTE .COMPLEX Rx Instructions: 3mg po once a day on mon,wed and fri 2mg po once a day on thu,,,sat metoprolol tartrate 25 mg tablet 25 mg PO BID Referrals: Rob Franco MD [Primary Care Provider] - Coding Level of Care Code ED [employer] 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
[2023-12-02 17:01] LABS: Alanine Aminotransferase 32 U/L (0-33); Albumin Level 4.6 g/dL (3.5-5.2); Alkaline Phosphatase 128 U/L (35-105); Anion Gap 20.9 (5-19); Aspartate Amino Transferase 25 U/L (0-32); Blood Urea Nitrogen 16 mg/dL (6-20); Carbon Dioxide 24 mmol/L (22-29); Chloride 97 mmol/L (98-107); Globulin 3.5 g/dL (1.3-4.6); Glomerular Filtration Rate 92.2 mL/min (90-130); Glucose 136 mg/dL (65-115); Osmolality Calculated 289 mOsm/kg (285-295); Potassium 3.9 mmol/L (3.5-5.1); Sodium 138 mmol/L (136-145); Total Bilirubin 0.6 mg/dL (0.15-1.2); Total Protein 8.1 g/dL (6.6-8.7)
[2023-12-02 17:04] LABS: INR 1.61 (0.8-1.2)
[2023-12-02 17:06] LABS: Partial Thromboplastin Time 50.4 SECONDS (23.9-36.7)
[2023-12-02 17:11] LABS: Calcium 9.4 mg/dL (8.5-10.5)
--- NOTE | 2023-12-02 17:29 | PM.HP ---
Providers/Chief Complaint Primary Care Provider: Rob Franco MD Chief Complaint: stroke like symptoms History of Present Illness Donis Chapman is a 43 year old female with past medical history of left MCA stroke, factor V Leyden mutation on chronic warfarin, hypertension, migraines who presents to the ER today after she fell strokelike symptoms at around 8:30 AM today morning associated with dizziness and stuttering of speech and right-sided weakness. Patient eventually came to the ER at around 4:33 PM. As per documentation on presentation she had an INS score of 8 and she was found to have a stammering speech. Patient was seen by neurology, had CT head and CTA head and neck and was deemed not to be a candidate for tenecteplase as she was out of the window and has been on warfarin. Patient was recommended to be admitted under observation as per neurology. Hence medicine team was consulted for further evaluation and management. Review of Systems General: Reports: 10 or more systems reviewed and unremarkable except in HPI and below Const: Denies: fever(s), chills, body aches, change in appetite, change in weight, malaise, night sweats, diaphoresis, change in sleep pattern, daytime sleepiness or snoring Eyes: Denies: change in vision, blurry vision, photophobia, eye discomfort or eye discharge ENMT: Denies: throat pain, enlarged tonsils, hoarseness, mouth pain, oral sores, dry mouth, tinnitus, nasal congestion or post nasal drip Card: Denies: chest pain, palpitations, irregular heart rhythm, edema, swelling of feet/ankles, lightheadedness, syncope, pre-syncope, dyspnea on exertion, orthopnea, leg pain with exertion or acrocyanosis Resp: Denies: dyspnea, productive cough, non-productive cough, wheezing, stridor, pain on inspiration, change in phlegm color, hemoptysis or chest congestion GI: Denies: abdominal pain, nausea, vomiting, hematemesis, coffee ground emesis, dysphagia, heartburn, diarrhea, constipation, bloating, GI cramping, change in bowel habits, pain on defecation, hematochezia or melena : Denies: flank pain, dysuria, urinary frequency, urinary urgency, urinary hesitancy, nocturia or hematuria Musc: Denies: neck pain, back pain, extremity pain, joint pain, joint swelling, joint redness, joint stiffness or limited range of motion Skin/Breast: Denies: rash Neuro: Denies: headache(s), numbness in extremities, weakness in extremities, sensory changes, lack of coordination, difficulty walking, frequent falls, dizziness, vertigo, confusion, Slurred speech present, difficulty communicating thoughts or seizure-like activity Psych: Denies: anxiety, depression, mood swings, panic attacks, hopelessness or irritability Endo: Denies: polyuria, polydipsia, tired all the time, cold intolerance, excessive sweating, flushing or heat intolerance Alec/Lymph: Denies: easy bruising or easy bleeding All/Imm: Denies: tongue swelling, facial swelling or acute wheezing Medications/Allergies Home Medications Medication Instructions Recorded Confirmed Last Taken Type pantoprazole 40 mg tablet,delayed 40 mg PO BID 04/03/23 12/02/23 12/02/23 History release aspirin 81 mg tablet,delayed 81 mg PO [facility] 06/16/23 12/02/23 12/02/23 History release atorvastatin 80 mg tablet 80 mg PO [facility] 06/16/23 12/02/23 12/02/23 History valsartan 80 mg tablet 80 mg PO [facility] 06/16/23 12/02/23 12/02/23 History venlafaxine 150 mg 150 mg PO [facility] 06/16/23 12/02/23 12/02/23 History capsule,extended release 24 hr divalproex 250 mg tablet,delayed 250 mg PO QID #180 tabs 09/01/23 12/02/23 12/02/23 Rx release (Depakote) metoprolol tartrate 25 mg tablet 25 mg PO BID 10/09/23 12/02/23 12/02/23 History warfarin 1 mg tablet See Rx Instructions .Route .COMPLEX 10/09/23 12/02/23 12/02/23 History buspirone 5 mg tablet 5 mg PO BID 3 months #180 tabs 10/12/23 12/02/23 12/02/23 Rx Allergies Allergy/AdvReac Type Severity Reaction Status Date / Time codeine Allergy ADR-Vomitin Verified 10/09/23 12:35 g iodine Allergy ALGY-Anaphy Verified 10/09/23 12:35 laxis latex Allergy ALGY-Rash Verified 10/09/23 12:35 shellfish derived Allergy ALGY-Anaphy Verified 10/09/23 12:35 laxis PFSH Acute PFSH: Medical History (Updated 12/02/23 @ 17:36 by Bhupinder Galindo MD) Ischemic stroke Tear of MCL (medial collateral ligament) of knee Hemiplegic migraine with status migrainosus Chronic left arterial ischemic stroke, MCA (middle cerebral artery) Ophthalmoplegic migraine headache Stroke Hypertension Chest pain Surgical History (Updated 12/02/23 @ 17:34 by Gagan Navarro MD) History of repair of ACL Hx of appendectomy Tubal ligation status History of surgical removal of meniscus of knee Family History Other CAD (coronary artery disease) Family history of premature coronary artery disease Social History Smoking and tobacco/nicotine status: never used tobacco/nicotine Alcohol intake: never Substance/Drug Use: never Household members: spouse Housing: House Vitals/I&O/Wt Last Vital Signs Pulse 117 H 12/02/23 16:31 Resp 18 12/02/23 16:31 BP 158/107 12/02/23 16:31 Pulse Ox 95 12/02/23 16:31 O2 Del Method Room Air 12/02/23 16:31 Weight last 48 hrs Weight 118.841 kg Physical Exam Narrative: NIH score = 8 although patient's stammering speech is suggestive of nonphysiologic/functional neurological disorder type symptoms. And it is difficult to determine if the patient has true right-sided weakness. The patient is alert she is oriented to person place and situation. She is talking with rapid stuttering speech. Patient in no apparent distress. Pupils bilaterally equal and reactive. Data 12/03/23 05:54 12/03/23 05:54 A&P Assessment and plan (1) Stroke-like symptoms: Appreciate neurology recommendations. Out of the window for tenecteplase. PT/OT/speech evaluation. Permissible hypertension. Hold off on antihypertensives for now except metoprolol to avoid tachycardia. Continue warfarin as no cerebral hemorrhage. NIH monitoring. Continue with aspirin, statin. Last A1c of 5.4. TSH recently appreciated. Will check lipid panel. Last echocardiogram from February 2023 showed EF 55 to 60% without diastolic dysfunction, limited quality bubble study because of poor ultrasonic window with trace TR. Given patient's presentation and chronic symptoms are also rule out multiple sclerosis and [place]'s. Patient does have significant family history on her father side with grandmother having similar symptoms in the past. Patient also has history of factor V Leyden mutation (2) Chronic left arterial ischemic stroke, MCA (middle cerebral artery): (3) Intractable migraine: (4) Factor 5 Leiden mutation, heterozygous: Continue with home dose of warfarin. Check INR daily. Plan Continue other chronic medications including BuSpar, Depakote, venlafaxine. Full code Cardiac diet, speech evaluation Protonix OPD prophylaxis Warfarin will suffice as DVT prophylaxis. Attestations Medical Necessity Statement*: Admission under observation for further evaluation and management of strokelike symptoms Diagnoses Stroke-like symptoms R29.90 Chronic left arterial ischemic stroke, MCA (middle cerebral artery) I69.30 Intractable migraine G43.919 Factor 5 Leiden mutation, heterozygous D68.51
[2023-12-02] MEDS: aspirin 81 mg Chew Tablet 324 MG PO (17:30)
[2023-12-02 17:39] LABS: Glucose Point of Care 118 mg/dL (70-110)
[2023-12-02 17:40] VITALS: BP 166/114; PULSE 93; O2SAT 92
[2023-12-02 18:48] LABS: Amphetamines Screen Urine Negative (Negative); Barbiturates Screen Urine Negative (Negative); Benzodiazepines Screen Urine Negative (Negative); Cocaine Screen Urine Negative (Negative); Opiate Screen Urine Negative (Negative); PCP Screen Urine Negative (Negative); THC Screen Urine Negative (Negative)
[2023-12-02 18:49] LABS: Glucose Point of Care 105 mg/dL (70-110)
[2023-12-02 18:54] LABS: Add Urine Microscopic? YES; Bilirubin Urine Neg (Negative); Blood Urine 2+ (Negative); Glucose Urine UA Norm (Normal); Ketones Urine Negative (Negative); Leukocyte Esterase Urine Negative (Negative); Nitrate Urine Negative (Negative); Protein Urine Neg (Negative); Specific Gravity, Urine 1.015 (1.005-1.030); Sulfosalicylic Acid Urine Negative (Negative); Urine Appearance Clear (CLEAR); Urine Color Yellow (Yellow); Urobilinogen Urine Norm (Negative); pH Urine 8 (5-7)
[2023-12-02 18:56] VITALS: BP 155/102; PULSE 96; O2SAT 95
[2023-12-02 19:08] LABS: Add Urine Culture? No; RBC Urine 0-4 /hpf (0-2); Squamous Epithelial Cell Urine 0-4 /hpf (0-5); WBC Urine 0-4 /hpf (0-5)
[2023-12-02 19:44] VITALS: BP 166/94; PULSE 85; RESP 18; TEMP 36.7; O2SAT 96
[2023-12-02 20:21] LABS: Glucose Point of Care 125 mg/dL (70-110)
[2023-12-02] MEDS: pantoprazole DR 40 mg Tablet PO (21:08)
[2023-12-02] MEDS: divalproex DR 250 mg Tablet PO (21:08)
[2023-12-02] MEDS: metoprolol tartrate 25 mg Tablet PO (21:08)
[2023-12-02 22:00] VITALS: PULSE 73
[2023-12-03] VITALS: BP 116/80; PULSE 90; RESP 16; TEMP 37; O2SAT 96
--- NOTE | 2023-12-03 00:05 | PC.NURSE ---
When assessing the patient upon admission to the floor she has stuttered speech and difficulty finding words. Her atmospheric drier tender on the right side was slightly weaker and she had a tremor to the right arm after griping my hand. She is not able to open her right eye on her own but the pupil is reactive.
[2023-12-03 04:38] VITALS: BP 130/79; PULSE 79; RESP 18; TEMP 36.8; O2SAT 97
[2023-12-03] MEDS: atorvastatin 40 mg Tablet PO (05:05)
[2023-12-03] MEDS: venlafaxine ER (24HR) 150 mg Capsule PO (05:05)
[2023-12-03] MEDS: aspirin 81 mg EC Tablet PO (05:05)
[2023-12-03 05:16] VITALS: PULSE 78
[2023-12-03 06:01] LABS: Basophils % 0.1 %; Hematocrit 45.3 % (36-47); Lymphocytes # 1.4 10^3/uL (0.8-4.8); Mean Corpuscular HGB Conc 33.3 g/dL (30-55); Mean Corpuscular Hemoglobin 29.2 pg (27-33); Mean Corpuscular Volume 87.6 fl (85-98); Mean Platelet Volume 8.8 fL (7.4-10.4); Monocytes # 0.4 10^3/uL (0.2-0.9); Monocytes % 3.8 %; Neutrophils # 8.95 10^3/uL (1.8-7.7); Neutrophils % 82.5 %; Nucleated Red Blood Cells % 0 %; Platelet Count 395 10^3/cmm (157-399); Red Blood Count 5.17 10^6/uL (3.85-5.65); White Blood Count 10.85 10^3/uL (3.29-11.43)
[2023-12-03 06:24] LABS: Chol HDL Ratio 4.84 mg/dL (0.0-4.40); Cholesterol 213 mg/dL (0-200); HDL Cholesterol 44 mg/dL (60-100); LDL Cholesterol Calculated 137 mg/dL (50-129); LDL HDL Ratio 3.11 RATIO (0.00-3.22); Triglycerides 159 mg/dL (0-150)
[2023-12-03 06:25] LABS: Alanine Aminotransferase 35 U/L (0-33); Albumin Level 4.5 g/dL (3.5-5.2); Alkaline Phosphatase 119 U/L (35-105); Anion Gap 20.4 (5-19); Aspartate Amino Transferase 19 U/L (0-32); Blood Urea Nitrogen 18 mg/dL (6-20); Calcium 9.7 mg/dL (8.5-10.5); Carbon Dioxide 23 mmol/L (22-29); Chloride 99 mmol/L (98-107); Globulin 2.7 g/dL (1.3-4.6); Glomerular Filtration Rate 110.2 mL/min (90-130); Glucose 147 mg/dL (65-115); Magnesium 2.1 mg/dL (1.7-2.3); Osmolality Calculated 291 mOsm/kg (285-295); Phosphorus 3.6 mg/dL (2.5-4.5); Potassium 4.4 mmol/L (3.5-5.1); Sodium 138 mmol/L (136-145); Total Bilirubin 0.4 mg/dL (0.15-1.2); Total Protein 7.2 g/dL (6.6-8.7)
[2023-12-03 07:32] VITALS: BP 134/95; PULSE 87; RESP 15; TEMP 36.7; O2SAT 97
[2023-12-03] MEDS: divalproex DR 250 mg Tablet PO (08:47)
[2023-12-03] MEDS: pantoprazole DR 40 mg Tablet PO (08:47)
[2023-12-03] MEDS: metoprolol tartrate 25 mg Tablet PO (08:47)
[2023-12-03] MEDS: BuSPIRONE 10 mg Tablet 5 MG PO (08:47)
--- NOTE | 2023-12-03 09:44 | PM.DCS ---
Discharge Providers Date of Admission: 12/02/23 18:43 Date of Discharge: December 03, 2023 Attending Provider at Admission: Gagan Navarro MD Attending Provider at Discharge: Gagan Navarro MD Consults: Neurology: Dr. Leal Primary Care Provider: Rob Franco MD Diagnoses at Discharge Discharge Diagnosis (1) Stroke-like symptoms: Status: Acute (2) Chronic left arterial ischemic stroke, MCA (middle cerebral artery): Status: Acute (3) Intractable migraine: Status: Acute (4) Factor 5 Leiden mutation, heterozygous: Status: Acute Reason for Visit Reason for Visit: stroke like symptoms Hospital Course Hospital Course Donis Chapman is a 43 year old female with past medical history of left MCA stroke, factor V Leyden mutation on chronic warfarin, hypertension, migraines who presents to the ER today after she fell strokelike symptoms at around 8:30 AM today morning associated with dizziness and stuttering of speech and right-sided weakness. Patient eventually came to the ER at around 4:33 PM. As per documentation on presentation she had an INS score of 8 and she was found to have a stammering speech. Patient was seen by neurology, had CT head and CTA head and neck and was deemed not to be a candidate for tenecteplase as she was out of the window and has been on warfarin. She was admitted to the hospital further evaluation and management. Hospitalization was unremarkable. He was cleared by PT OT and speech therapy. She continued to have stammering of speech. She did have family history of similar complaints in the great-grandmothers on the paternal side. Blood work for El[place]'s and MS were sent out. She was discharged in hemodynamically stable condition advised to follow-up with her primary provider within next 1 week and with her neurologist in 2 weeks. Physical Exam Narrative: General: AOx3 without acute distress HEENT: Nontraumatic, no pallor, no icterus, pupils bilaterally equal and reactive Lung: Normal Cerrobend sounds all over lung sommers without added sound, saturating well on room air Cardiology: S1-S2 regular without S3 gallop, soft ejection systolic murmur at aortic area Abdomen: Soft nontender without any organomegaly NIH score = 8 although patient's stammering speech is suggestive of nonphysiologic/functional neurological disorder type symptoms. And it is difficult to determine if the patient has true right-sided weakness. The patient is alert she is oriented to person place and situation. She is talking with rapid stuttering speech. Patient in no apparent distress. Pupils bilaterally equal and reactive. Discharge Data Studies Completed and Pending Completed Studies During Hospitalization Category Date Time Status CT angio headneck* [id number] Stat Cat Scan 12/02/23 16:32 Completed XR chest 1V portable [id number] Stat Exams 12/02/23 16:32 Completed Radiology Impressions Chest X-Ray 12/02/23 16:32 IMPRESSION: 1. No acute cardiopulmonary abnormality. Head/Neck CTA 12/02/23 16:32 IMPRESSION: 1. No evidence of large vessel occlusion or acute thrombosis in the head. ASSESSMENT: ASPECTS ([place] Stroke Program Early CT Score) is 10. IMPRESSION: 1. No evidence of acute thrombosis or vascular injury in the neck. REFERENCES: NASCET CRITERIA. The degree of stenosis in the cervical segment of the internal carotid artery is based on NASCET criteria. Normal is no stenosis. Mild is less than 50% stenosis. Moderate is 50-69% stenosis. Severe is 70% to 99% stenosis. Total occlusion is no detectable patent lumen. Laboratory Results WBC 10.85 10^3/uL (3.29-11.43) 12/03/23 05:54 RBC 5.17 10^6/uL (3.85-5.65) 12/03/23 05:54 Hgb 15.10 g/dL (11.27-16.99) 12/03/23 05:54 Hct 45.3 % (36-47) 12/03/23 05:54 MCV 87.6 fl (85-98) 12/03/23 05:54 MCH 29.2 pg (27-33) 12/03/23 05:54 MCHC 33.3 g/dL (30-55) 12/03/23 05:54 RDW 12.0 % (12.1-15.1) L 12/03/23 05:54 Plt Count 395 10^3/cmm (157-399) 12/03/23 05:54 MPV 8.8 fL (7.4-10.4) 12/03/23 05:54 Neut % (Auto) 82.5 % 12/03/23 05:54 Lymph % (Auto) 13.0 % 12/03/23 05:54 [place] % (Auto) 3.8 % 12/03/23 05:54 Eos % (Auto) 0.0 % 12/03/23 05:54 Baso % (Auto) 0.1 % 12/03/23 05:54 Neut # (Auto) 8.95 10^3/uL (1.8-7.7) H 12/03/23 05:54 Lymph # (Auto) 1.4 10^3/uL (0.8-4.8) 12/03/23 05:54 Sherman # (Auto) 0.4 10^3/uL (0.2-0.9) 12/03/23 05:54 Eos # (Auto) 0.0 10^3/uL (0.0-0.8) 12/03/23 05:54 Baso # (Auto) 0.0 10^3/uL (0.0-0.1) 12/03/23 05:54 Nucleated RBC % (auto) 0 % 12/03/23 05:54 Nucleated RBCs # 0.0 /100WBC 12/03/23 05:54 PT 19.70 SECONDS (12.1-14.9) H 12/02/23 16:37 INR 1.61 (0.8-1.2) H 12/02/23 16:37 APTT 50.4 SECONDS (23.9-36.7) H 12/02/23 16:37 Sodium 138 mmol/L (136-145) 12/03/23 05:54 Potassium 4.4 mmol/L (3.5-5.1) 12/03/23 05:54 Chloride 99 mmol/L (98-107) 12/03/23 05:54 Carbon Dioxide 23 mmol/L (22-29) 12/03/23 05:54 Anion Gap 20.4 (5-19) H 12/03/23 05:54 BUN 18 mg/dL (6-20) 12/03/23 05:54 Creatinine 0.6 mg/dL (0.5-0.9) 12/03/23 05:54 GFR Calculation 110.2 mL/min (90-130) 12/03/23 05:54 Glucose 147 mg/dL (65-115) H 12/03/23 05:54 POC Glucose 125 mg/dL (70-110) H 12/02/23 20:17 Calculated Osmolality 291 mOsm/kg (285-295) 12/03/23 05:54 Calcium 9.7 mg/dL (8.5-10.5) 12/03/23 05:54 Phosphorus 3.6 mg/dL (2.5-4.5) 12/03/23 05:54 Magnesium 2.1 mg/dL (1.7-2.3) 12/03/23 05:54 Total Bilirubin 0.4 mg/dL (0.15-1.2) 12/03/23 05:54 AST 19 U/L (0-32) 12/03/23 05:54 ALT 35 U/L (0-33) H 12/03/23 05:54 Alkaline Phosphatase 119 U/L (35-105) H 12/03/23 05:54 Total Protein 7.2 g/dL (6.6-8.7) 12/03/23 05:54 Albumin 4.5 g/dL (3.5-5.2) 12/03/23 05:54 Globulin 2.7 g/dL (1.3-4.6) 12/03/23 05:54 Triglycerides 159 mg/dL (0-150) H 12/03/23 05:54 Cholesterol 213 mg/dL (0-200) H 12/03/23 05:54 LDL Cholesterol, Calc 137 mg/dL (50-129) H 12/03/23 05:54 HDL Cholesterol 44 mg/dL (60-100) L 12/03/23 05:54 LDL/HDL Ratio 3.11 RATIO (0.00-3.22) 12/03/23 05:54 Cholesterol/HDL Ratio 4.84 mg/dL (0.0-4.40) H 12/03/23 05:54 Urine Color Yellow (Yellow) 12/02/23 18:26 Urine Appearance Clear (CLEAR) 12/02/23 18:26 Urine pH 8 (5-7) H 12/02/23 18:26 Ur Specific [place] 1.015 (1.005-1.030) 12/02/23 18:26 Urine Protein Neg (Negative) 12/02/23 18:26 Urine Glucose (UA) Norm (Normal) 12/02/23 18:26 Urine Ketones Negative (Negative) 12/02/23 18:26 Urine Blood 2+ (Negative) H 12/02/23 18:26 Urine Nitrate Negative (Negative) 12/02/23 18:26 Urine Bilirubin Neg (Negative) 12/02/23 18:26 Prot Sulfosalicylic Acd Negative (Negative) 12/02/23 18:26 Urine Urobilinogen Norm mg/dL (Negative) 12/02/23 18:26 Ur Leukocyte Esterase Negative (Negative) 12/02/23 18:26 Urine RBC 0-4 /hpf (0-2) H 12/02/23 18:26 Urine WBC 0-4 /hpf (0-5) H 12/02/23 18:26 Ur Squamous Epith Cells 0-4 /hpf (0-5) H 12/02/23 18:26 Amorphous Sediment Not Reportable 12/02/23 18:26 Urine Bacteria None /hpf (NONE) 12/02/23 18:26 Urine Mucus None /hpf 12/02/23 18:26 Urine Opiates Screen Negative ng/mL (Negative) 12/02/23 18:26 Ur Barbiturates Screen Negative ng/mL (Negative) 12/02/23 18:26 Ur Phencyclidine Scrn Negative ng/mL (Negative) 12/02/23 18:26 Ur Amphetamines Screen Negative ng/mL (Negative) 12/02/23 18:26 U Benzodiazepines Scrn Negative ng/mL (Negative) 12/02/23 18:26 Urine Cocaine Screen Negative ng/mL (Negative) 12/02/23 18:26 U Marijuana (THC) Screen Negative ng/mL (Negative) 12/02/23 18:26 Vitals Last Vital Signs Temp 98.0 F 12/03/23 07:32 Pulse 87 12/03/23 07:32 Resp 15 12/03/23 07:32 BP 134/95 12/03/23 07:32 Pulse Ox 97 12/03/23 07:32 O2 Del Method Room Air 12/03/23 07:32 Discharge Plan Discharge Patient Disposition: Home Condition: Stable Prescriptions: Continued atorvastatin 80 mg tablet 80 mg PO QAM valsartan 80 mg tablet 80 mg PO QAM venlafaxine 150 mg capsule,extended release 24hr 150 mg PO QAM aspirin 81 mg tablet,delayed release (DR/EC) 81 mg PO QAM divalproex [Depakote] 250 mg tablet,delayed release (DR/EC) 250 mg PO QID Qty: 180 2RF Rx Instructions: @07:00,11:00,15:00,19:00 pantoprazole 40 mg tablet,delayed release (DR/EC) 40 mg PO BID buspirone 5 mg tablet 5 mg PO BID 90 Days Qty: 180 2RF warfarin 1 mg tablet See Rx Instructions .ROUTE .COMPLEX Rx Instructions: 3mg po once a day on mon,wed and fri 2mg po once a day on thu,,,sat metoprolol tartrate 25 mg tablet 25 mg PO BID Discontinued amlodipine 10 mg tablet 10 mg PO QAM Discharge Orders: Discharge Order (Routine); Ordered 12/03/23 Ordered By: Gagan Navarro Referrals: Malik Leal MD [Physician] - 2 weeks (We have notified your physician's clinic of the need for a follow-up appointment to be scheduled. If you have not heard from them within the next 2 business days, please call them directly. ) Rob Franco MD [Primary Care Provider] - 12/10/23 10:20 am (APPOINT WILL BE WITH YIMI ASTORGA DUE TO DR FRANCO BEING OVER BOOKED ) Discharge Diet: Cardiac Discharge Activity: Resume usual activity and Increase activity as tolerated Patient Instructions: Stroke (GEN), Opioid Safety, Stroke Stoplight Activity Restrictions/Additional Instructions: Please follow-up with a primary care provider within next 1 week. Please follow-up with neurology within next 2 weeks. Please follow-up regarding the blood work sent out today with your neurologist. To check her blood pressure daily at home maintain a blood pressure diary. For now do not take amlodipine 10 mg daily going forward. Continue taking all other medications as before. Discharge Attestations Time Spent in Discharge Care*: greater than 30 min Specific Discharge Activities: educating patient, discussing with pcp/other providers, discussing with field nurse case manager/social workers/dc planners, documenting/other paperwork and evaluating patient/reviewing data Status at Discharge: Cognitive status at discharge: cognitively intact, Behavioral status at discharge: cooperative, Functional status at discharge: independent ambulation, Overall status at discharge: patient is progressing back to baseline Quality Metrics Clinical Quality Measures [ No reported AMI, CVA or VTE this stay] Coding Level of Care Code 10942 Total time (in minutes) for Discharge: 60 Diagnoses Stroke-like symptoms R29.90 Chronic left arterial ischemic stroke, MCA (middle cerebral artery) I69.30 Intractable migraine G43.919 Factor 5 Leiden mutation, heterozygous D68.51
--- NOTE | 2023-12-03 10:43 | PC.CHAP ---
Pastoral Care Encounter/Spiritual Assessment Type of Contact [x] Declined manager sterile visit [] Patient/Family/Request visit [] Outpatient visit [] Follow-up visit [] Physician referral [] Code/Alert [x] Routine visit [] Staff referral [] Actively dying [] Patient sleeping [] Family support [] [] Out of room [] Palliative care [] [] Receiving care in room [] Pre-surgical visit [] Trauma [] Long length of stay [] ICU visit [] Other: Relational/Emotional Strength [] Patient feels connected with others/family/visitors/staff [] Distress [] Loneliness/isolation [] Abandonment Spirituality of Patient [] Person of [place] [] Attends Taoist of their [place] [] Believes in Prayer [] Reads Bible or Gnosticism materials [] There are Spiritual issues to be addressed Category Director Interventions [] Prayer [] Active listening [] Non-anxious presence [] Spiritual/emotional support [] Crisis/trauma care [] Spiritual counseling [] Bereavement support [] Provided bereavement packet [] Provided Bible/devotional materials [] Provided toy/stuffed animal, coloring book to patient or family member [] Provided Communion [] Anointing/[place] [] Salvation [] Completed spiritual assessment [] Other: Impact on Illness or Injury [] Angry [] Fearful [] Anxious [] Often cries [] Exhaustion [] Unable to work [] Unable to attend mormonism [] Unable to walk/stand [] Unable to read [] Unable to drive [] Unable to eat/drink [] Unable to sleep [] Unable to be with family [] Patient intubated [] Other: Summary Declined manager sterile visit Time spent with patient 5 mins
[2023-12-03 11:25] VITALS: BP 131/89; PULSE 74; RESP 16; TEMP 36.4; O2SAT 96
[2023-12-03 13:13] VITALS: BP 131/89; PULSE 74; RESP 16; TEMP 36.4; O2SAT 96
[2023-12-04 14:39] LABS: Anti-Double Strand DNA AB <1 IU/mL; Jo-1 Antibody <1.0 NEG AI (<1.0 NEG); SS-B/LA IGG <1.0 NEG AI (<1.0 NEG); Scleroderma Ab(Scl-70) Ab <1.0 NEG AI (<1.0 NEG); Ss-A/Ro Igg <1.0 NEG AI (<1.0 NEG)
[2024-03-10 10:22] LABS: SM/RNP Antibodies <1.0 NEG
== END 2023-12-03 12:15 | disposition home or self-care (01) ==
LOC: ER 17:36 → MEDSURG 18:44
PROVIDERS: Admitting Provider Student in an Organized Health Care Education/Training Program; Emergency Provider Emergency Medicine; PCP Family Medicine; Visit Provider Student in an Organized Health Care Education/Training Program
DX: R29.90 Unspecified symptoms and signs involving the nervous system (principal); R42 Dizziness and giddiness; R53.1 Weakness; R47.81 Slurred speech; I69.30 Unspecified sequelae of cerebral infarction; G43.919 Migraine, unspecified, intractable, without status migrainosus; D68.51 Activated protein C resistance; Z79.01 Long term (current) use of anticoagulants; I10 Essential (primary) hypertension; Z79.82 Long term (current) use of aspirin; G43.B0 Ophthalmoplegic migraine, not intractable; F44.9 Dissociative and conversion disorder, unspecified
CPT/HCPCS: 36415; 36416; 70496; 70498; 71045; 80053; 80061; 80306; 81001; 81271; 82962; 83735; 84100; 85025; 85610; 85730; 86225; 86235; 93005; 94664; 96374; 96375; 97161; 97165; 97530; 99285; G0378; J1200; J2920; Q9967

== ENCOUNTER 2023-12-25 06:00 | Outpatient (RCR) | payer BC, SELFPAY | END 2024-01-24 23:59 | disposition home or self-care (01) | LOC: SST 06:00 | PROVIDERS: PCP Family Medicine; Visit Provider Internal Medicine | DX: I69.322 Dysarthria following cerebral infarction (principal); I69.320 Aphasia following cerebral infarction | CPT/HCPCS: 92507 ==

== ENCOUNTER 2024-01-25 06:00 | Outpatient (RCR) | payer BC, SELFPAY | END 2024-02-23 23:59 | disposition home or self-care (01) | LOC: SST 06:00 | PROVIDERS: PCP Family Medicine; Visit Provider Internal Medicine | DX: I69.322 Dysarthria following cerebral infarction (principal); I69.320 Aphasia following cerebral infarction | CPT/HCPCS: 92507 ==

== ENCOUNTER 2024-02-09 08:10 | Outpatient (CLI) | payer BC, SELFPAY ==
[2024-02-09 08:41] LABS: Valproic Acid Level 44.3 ug/mL (50-100)
== END 2024-02-09 08:11 | disposition home or self-care (01) ==
LOC: LAB 08:10
PROVIDERS: Visit Provider Psychiatry & Neurology Neurology
DX: Z51.81 Encounter for therapeutic drug level monitoring (principal)
CPT/HCPCS: 36415; 80164

== ENCOUNTER 2024-02-16 06:00 | Outpatient (RCR) | payer BC, SELFPAY | END 2024-02-23 23:59 | disposition home or self-care (01) | LOC: SST 06:00 | PROVIDERS: Visit Provider Family Medicine | DX: I69.322 Dysarthria following cerebral infarction (principal); I69.320 Aphasia following cerebral infarction | CPT/HCPCS: 92607; 92608 ==

== ENCOUNTER 2024-02-24 06:00 | Outpatient (RCR) | payer BC, SELFPAY | END 2024-03-25 23:59 | disposition home or self-care (01) | LOC: SST 06:00 | PROVIDERS: PCP Family Medicine; Visit Provider Internal Medicine | DX: I69.322 Dysarthria following cerebral infarction (principal); I69.320 Aphasia following cerebral infarction | CPT/HCPCS: 92507 ==

== ENCOUNTER 2024-03-26 06:00 | Outpatient (RCR) | payer BC, SELFPAY | END 2024-04-24 23:59 | disposition home or self-care (01) | LOC: SST 06:00 | PROVIDERS: PCP Family Medicine; Visit Provider Internal Medicine | DX: I69.322 Dysarthria following cerebral infarction (principal); I69.320 Aphasia following cerebral infarction | CPT/HCPCS: 92507 ==

== ENCOUNTER 2024-04-20 21:34 | Emergency (ER) | payer BC, SELFPAY ==
[2024-04-20 21:48] VITALS: BP 156/114; PULSE 105; RESP 20; TEMP 37.6; O2SAT 98
--- NOTE | 2024-04-20 21:54 | ECG_ITS ---
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 Measurements Intervals Riddle Rate: 92 P: 20 TX: 154 QRS: 14 QRSD: 93 T: 23 QT: 293 QTc: 363 Interpretive Statements SINUS RHYTHM NONSPECIFIC T-WAVE ABNORMALITY Compared to ECG 12/02/2023 16:39:13 Sinus tachycardia no longer present T-wave abnormality still present Electronically Signed On 04-21-2024 0:10:56 CDT by Wilfredo Solis M.D. [email or web address] [email or web address] [email or web address] toled[facility] medical centerCatalyst Biosciences/store/[id number] f
--- NOTE | 2024-04-20 22:10 | XRR_ITS ---
PROCEDURE INFORMATION: Exam: XR Chest Exam date and time: 04/20/2024 10:23 PM Age: 43 years old Clinical indication: Shortness of breath and other: Vomiting; Additional info: Chest pain TECHNIQUE: Imaging protocol: Radiologic exam of the chest. Views: 1 view. COMPARISON: CR XR chest 1V portable [id number] 12/02/2023 4:51 PM FINDINGS: Lungs: Unremarkable. No consolidation. Pleural spaces: Unremarkable. No pleural effusion. No pneumothorax. Heart/Mediastinum: Unremarkable. No cardiomegaly. Bones/joints: Unremarkable. XR/XR chest 1V portable [id number] IMPRESSION: No acute findings.
[2024-04-20 23:08] VITALS: BP 153/93; PULSE 101; RESP 15; O2SAT 96
[2024-04-20 23:12] LABS: Basophils % 0.4 %; Eosinophils # 0.1 10^3/uL (0.0-0.8); Eosinophils % 1.5 %; Hematocrit 42.9 % (36-47); Lymphocytes # 2.7 10^3/uL (0.8-4.8); Mean Corpuscular HGB Conc 32.9 g/dL (30-55); Mean Corpuscular Hemoglobin 29.1 pg (27-33); Mean Corpuscular Volume 88.6 fl (85-98); Mean Platelet Volume 9.4 fL (7.4-10.4); Monocytes # 0.5 10^3/uL (0.2-0.9); Monocytes % 5.9 %; Neutrophils # 5.08 10^3/uL (1.8-7.7); Neutrophils % 59.8 %; Nucleated Red Blood Cells % 0 %; Platelet Count 354 10^3/cmm (157-399); Red Blood Count 4.84 10^6/uL (3.85-5.65); Red Cell Distribution Width 12.6 % (12.1-15.1); White Blood Count 8.49 10^3/uL (3.29-11.43)
--- NOTE | 2024-04-20 23:21 | XRR_ITS ---
PROCEDURE INFORMATION: Exam: XR Cervical Spine Exam date and time: 04/20/2024 11:27 PM Age: 43 years old Clinical indication: Neck pain; Additional info: Pain numbness tingling radiating from left neck to arm TECHNIQUE: Imaging protocol: Radiologic exam of the cervical spine. Views: 2 or 3 views. COMPARISON: CT angio headneck* [id number] 12/02/2023 4:44 PM FINDINGS: Bones/joints: No acute fracture. Normal alignment. No significant disc space narrowing or osteophyte formation. Soft tissues: Unremarkable. XR/XR cervical spine 3V* [id number] IMPRESSION: No acute findings. If there is desire for further evaluation, a MRI could be performed.
[2024-04-20 23:30] VITALS: BP 162/104; PULSE 89; RESP 14; O2SAT 94
--- NOTE | 2024-04-20 23:30 | ED_ITS ---
HPI - Chest Pain 2 General: Chief Complaint: Chest Pain Stated Complaint: Chest pain Time Seen by Provider: 04/20/24 23:07 History of Present Illness: Who presents to the ER with a sharp stabbing pain under her left breast and sometimes radiates to her back, sometimes radiates up into her left shoulder down her arm. This been going off and on for 2 days. She also says sometimes it comes from her neck and numbness tingling shoots down her left arm. Patient is no known neck trauma. No known cardiac history. Nothing brings this pain on or makes it go away. It is intermittent. 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, MCA (middle cerebral artery) Ophthalmoplegic migraine headache Stroke Hypertension Chest pain Surgical History History of repair of ACL Hx of appendectomy Tubal ligation status History of surgical removal of meniscus of knee Family History Other CAD (coronary artery disease) Family history of premature coronary artery disease Social History Smoking and tobacco/nicotine status: never used tobacco/nicotine Alcohol intake: never Substance/Drug Use: never Household members: spouse Housing: House Physical Exam 2 Const: COMMON NORMALS: no acute distress, average body habitus, patient oriented x3, no limitations, healthy appearing, alert and well nourished HENMT: COMMON NORMALS: normocephalic, atraumatic, hearing grossly normal bilaterally, external ears normal, Normal external nose present and moist oral mucous membranes HEAD & SCALP: normocephalic and atraumatic NOSE: Normal external nose present EXTERNAL EAR: Yes external ears normal Neck/C-Spine: COMMON NORMALS: no JVD OTHER: Palpation of cervical spine area and left trapezius which is ropey tight and spastic reproduces the pain numbness and tingling that shoots down patient's left arm. Chest: COMMONS NORMALS: normal inspection of the chest and normal palpation of entire chest wall Resp: COMMON NORMALS: normal respiratory effort, No retractions, No use of accessory muscles and clear to auscultation bilaterally AUSCULTATION: clear to auscultation bilaterally Cardio: COMMON NORMALS: no JVD, regular rate, regular rhythm, S1 normal heart sound present, S2 normal heart sound present, No gallops present (Cardio), No clicks present (Cardio), No murmurs present (Cardio) and No rub (Cardio) R ATE: regular rate RHYTHM: regular rhythm HEART SOUNDS: S1 normal heart sound present and S2 normal heart sound present GI: COMMON NORMALS: Normal to inspection, nondistended, normoactive bowel sounds present, Soft to palpation, non-tender, No hepatosplenomegaly present and no masses PALPATION: Yes Soft to palpation and Yes No hepatosplenomegaly present Neuro: COMMON NORMALS: patient oriented x3 SENSORIUM/ORIENTATION: Yes alert Course 2 Vital Signs: Vital signs: Vital Signs Temperature 99.7 F H 04/20/24 21:48 Pulse Rate 106 H 04/21/24 01:30 Respiratory Rate 14 04/21/24 01:30 Blood Pressure 149/97 04/21/24 01:30 Pulse Oximetry 97 04/21/24 01:30 Oxygen Delivery Me thod Room Air 04/21/24 01:30 MDM - Chest Pain Medical Decision Making Patient had serial EKGs and cardiac enzymes, chest x-ray and cervical spine x- ray, all which was essentially negative. Patient's glucose was 160, CRP 13.1, initial troponin less than 6, 2-hour troponin 6, it is felt that patient's pain is not cardiac in nature. Probably more likely radicular or paresthesia-like from her neck. Patient be placed on prednisone and told to follow-up with her PCP. Lab Data 04/20/24 22:44 04/20/24 22:44 Radiology Impressions Chest X-Ray 04/20/24 22:10 IMPRESSION: No acute findings. Cervical Spine X-Ray 04/20/24 23:21 IMPRESSION: No acute findings. If there is desire for further evaluation, a MRI could be performed. Laboratory Results WBC 8.49 10^3/uL (3.29-11.43) 04/20/24 22:44 RBC 4.84 10^6/uL (3.85-5.65) 04/20/24 22:44 Hgb 14.10 g/dL (11.27-16.99) 04/20/24 22:44 Hct 42.9 % (36-47) 04/20/24 22:44 MCV 88.6 fl (85-98) 04/20/24 22:44 MCH 29.1 pg (27-33) 04/20/24 22:44 MCHC 32.9 g/dL (30-55) 04/20/24 22:44 RDW 12.6 % (12.1-15.1) 04/20/24 22:44 Plt Count 354 10^3/cmm (157-399) 04/20/24 22:44 MPV 9.4 fL (7.4-10.4) 04/20/24 22:44 Neut % (Auto) 59.8 % 04/20/24 22:44 Lymph % (Auto) 32.0 % 04/20/24 22:44 [place] % (Auto) 5.9 % 04/20/24 22:44 Eos % (Auto) 1.5 % 04/20/24 22:44 Baso % (Auto) 0.4 % 04/20/24 22:44 Neut # (Auto) 5.08 10^3/uL (1.8-7.7) 04/20/24 22:44 Lymph # (Auto) 2.7 10^3/uL (0.8-4.8) 04/20/24 22:44 [place] # (Auto) 0.5 10^3/uL (0.2-0.9) 04/20/24 22:44 Eos # (Auto) 0.1 10^3/uL (0.0-0.8) 04/20/24 22:44 Baso # (Auto) 0.0 10^3/uL (0.0-0.1) 04/20/24 22:44 Nucleated RBC % (auto) 0 % 04/20/24:44 Nucleated RBCs # 0.0 /100WBC 04/20/24 22:44 PT 22.60 SECONDS (12.1-14.9) H 04/20/24 22:44 INR 1.91 (0.8-1.2) H 04/20/24 22:44 Sodium 139 mmol/L (136-145) 04/20/24 22:44 Potassium 4.3 mmol/L (3.5-5.1) 04/20/24 22:44 Chloride 100 mmol/L (98-107) 04/20/24 22:44 Carbon Dioxide 25 mmol/L (22-29) 04/20/24 22:44 Anion Gap 18.3 (5-19) 04/20/24 22:44 BUN 11 mg/dL (6-20) 04/20/24 22:44 Creatinine 0.7 mg/dL (0.5-0.9) 04/20/24 22:44 GFR Calculation 92.2 mL/min (90-130) 04/20/24 22:44 Glucose 160 mg/dL (65-115) H 04/20/24 22:44 Calculated Osmolality 291 mOsm/kg (285-295) 04/20/24 22:44 Calcium 9.2 mg/dL (8.5-10.5) 04/20/24 22:44 Total Bilirubin 0.2 mg/dL (0.15-1.2) 04/20/24 22:44 AST 27 U/L (0-32) 04/20/24 22:44 ALT 43 U/L (0-33) H 04/20/24 22:44 Alkaline Phosphatase 134 U/L (35-105) H 04/20/24 22:44 Troponin T Baseline < 6 ng/L (0-10) 04/20/24 22:44 Troponin T 120 Minute 6.00 ng/L (0-10) 04/21/24 01:12 Delta Troponin T 0.70279 ABS# (0-10) 04/21/24 01:12 C-Reactive Protein 13.1 mg/L (0.0-4.9) H 04/20/24 22:44 Total Protein 6.7 g/dL (6.6-8.7) 04/20/24 22:44 Albumin 4.2 g/dL (3.5-5.2) 04/20/24 22:44 Globulin 2.5 g/dL (1.3-4.6) 04/20/24 22:44 Valproic Acid 60.4 ug/mL (50-100) 04/20/24 22:44 All radiology interpretation(s) finalized by discharge Discharge Plan Discharge Patient Disposition: Home Clinical Impression: Atypical chest pain, Paresthesia and pain of left extremity Condition: Stable Prescriptions: New prednisone 50 mg tablet 50 mg PO DAILY Qty: 5 0RF No Action atorvastatin 80 mg tablet 80 mg PO QAM valsartan 80 mg tablet 80 mg PO QAM aspirin 81 mg tablet,delayed release (DR/EC) 81 mg PO QAM sertraline 100 mg tablet 100 mg PO DAILY Qty: 30 5RF Rx Instructions: take at bedtime pantoprazole 40 mg tablet,delayed release (DR/EC) 40 mg PO BID buspirone 5 mg tablet 5 mg PO BID 90 Days Qty: 180 2RF divalproex [Depakote] 250 mg tablet,delayed release (DR/EC) 250 mg PO QID 30 Days Qty: 120 4RF Rx Instructions: @07:00,11:00,15:00,19:00 warfarin 1 mg tablet See Rx Instructions .ROUTE .COMPLEX Rx Instructions: 3mg po once a day on mon,wed and fri 2mg po once a day on thu,,,sat metoprolol tartrate 25 mg tablet 25 mg PO BID Discharge Orders: Discharge ED (Routine); Ordered 04/21/24 Ordered By: Mark Iniguez Referrals: Rob Franco MD [Primary Care Provider] - 1 week Patient Instructions: Chest Pain - Noncardiac, Paresthesia (ED) Activity Restrictions/Additional Instructions: Your evaluation in the ER that included EKGs, x-rays, and lab work did not reveal any acute cardiac cause of your pain. It is thought it may be arising in partially from your neck. You will be placed on prednisone to help relieve due to the inflammation of the nerves to your arm. Please follow-up with your family practitioner in the next 7 to 10 days for further evaluation and treatment. Coding Level of Care Code ED Cloth Presser for Bhanu Keyes
[2024-04-20 23:31] LABS: INR 1.91 (0.8-1.2); Troponin(5th) Baseline < 6 ng/L (0-10)
[2024-04-20 23:33] LABS: Alanine Aminotransferase 43 U/L (0-33); Albumin Level 4.2 g/dL (3.5-5.2); Alkaline Phosphatase 134 U/L (35-105); Anion Gap 18.3 (5-19); Aspartate Amino Transferase 27 U/L (0-32); Blood Urea Nitrogen 11 mg/dL (6-20); Calcium 9.2 mg/dL (8.5-10.5); Carbon Dioxide 25 mmol/L (22-29); Chloride 100 mmol/L (98-107); Creatinine Clr Calc Pharmacy 148.1107; Globulin 2.5 g/dL (1.3-4.6); Glomerular Filtration Rate 92.2 mL/min (90-130); Glucose 160 mg/dL (65-115); Osmolality Calculated 291 mOsm/kg (285-295); Potassium 4.3 mmol/L (3.5-5.1); Sodium 139 mmol/L (136-145); Total Bilirubin 0.2 mg/dL (0.15-1.2); Total Protein 6.7 g/dL (6.6-8.7); Valproic Acid Level 60.4 ug/mL (50-100)
[2024-04-20 23:46] LABS: C Reactive Protein 13.1 mg/L (0.0-4.9)
[2024-04-21] VITALS: BP 142/99; PULSE 93; RESP 15; O2SAT 97
--- NOTE | 2024-04-21 00:10 | ECG_ITS ---
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 Measurements Intervals [place] Rate: 100 P: 8 [place]: 144 QRS: 13 QRSD: 93 T: 6 QT: 348 QTc: 450 Interpretive Statements SINUS TACHYCARDIA ABNORMAL RHYTHM ECG Compared to ECG 04/20/2024 21:43:03 Sinus rhythm no longer present T-wave abnormality no longer present Electronically Signed On 04-21-2024 9:38:25 CDT by Jean Musa M.D. [id number]
[2024-04-21 00:30] VITALS: BP 139/100; PULSE 103; RESP 10; O2SAT 95
[2024-04-21 01:00] VITALS: BP 137/79; PULSE 94; RESP 22; O2SAT 95
[2024-04-21 01:30] VITALS: BP 149/97; PULSE 106; RESP 14; O2SAT 97
[2024-04-21 01:46] LABS: Troponin 5 2HR Delta 0.00001 ABS# (0-10)
[2024-04-21 02:00] VITALS: BP 151/93; PULSE 109; RESP 14; O2SAT 95
== END 2024-04-21 02:11 | disposition home or self-care (01) ==
PROVIDERS: Emergency Provider Emergency Medicine; PCP Family Medicine
DX: R07.89 Other chest pain (principal); R20.2 Paresthesia of skin; M79.602 Pain in left arm; Z86.73 Personal history of transient ischemic attack (TIA), and cerebral infarction without residual deficits; I10 Essential (primary) hypertension; Z79.82 Long term (current) use of aspirin; Z79.01 Long term (current) use of anticoagulants
CPT/HCPCS: 36415; 71045; 72040; 80053; 80164; 84484; 85025; 85610; 86140; 93005; 99285

== ENCOUNTER 2024-04-25 06:00 | Outpatient (RCR) | payer BC, SELFPAY | END 2024-05-17 23:59 | disposition home or self-care (01) | LOC: SST 06:00 | PROVIDERS: PCP Family Medicine; Visit Provider Internal Medicine | DX: I69.322 Dysarthria following cerebral infarction (principal); I69.320 Aphasia following cerebral infarction | CPT/HCPCS: 92507 ==

== ENCOUNTER 2024-11-12 08:49 | Emergency (ER) | payer SELFPAY ==
[2024-11-12] VITALS (7 sets, daily range): BP systolic 135–208; BP diastolic 100–145; PULSE 95–113; RESP 14–22; TEMP 36.9; O2SAT 95–99; BMI 38.7
--- NOTE | 2024-11-12 09:28 | ECG_ITS ---
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
--- NOTE | 2024-11-12 09:58 | CTR_ITS ---
PROCEDURE INFORMATION: Exam: CTA Chest With Contrast Exam date and time: 11/12/2024 10:49 AM Age: 44 years old Clinical indication: Pain; Chest pressure; Additional info: Cp TECHNIQUE: Imaging protocol: Computed tomographic angiography of the chest with contrast. Exam focused on the arteries. 3D rendering (Not supervised by radiologist): MIP and/or 3D reconstructed images were created by the technologist. Radiation optimization: All CT scans at this facility use at least one of these dose optimization techniques: automated exposure control; mA and/or kV adjustment per patient size (includes targeted exams where dose is matched to clinical indication); or iterative reconstruction. Contrast material: OMNI 350; Contrast volume: 68 ml; Contrast route: INTRAVENOUS (IV); COMPARISON: CT angio chest PE protcl [id number] 02/27/2023 6:01 PM RADIATION DOSE METRICS: Total DLP (mGy-cm): 113.03 FINDINGS: Pulmonary arteries: Normal. No pulmonary emboli. Aorta: The thoracic aorta is normal in caliber without aneurysm or dissection. No definite calcified plaque is noted involving the coronary vessels. Lungs: Unremarkable. No consolidation. No masses. Pleural spaces: Unremarkable. No pneumothorax. No pleural effusion. Heart: Unremarkable. No cardiomegaly. No pericardial effusion. Lymph nodes: Unremarkable. No enlarged lymph nodes. Diaphragm: There may be a small hiatal hernia. Liver: There is diffuse fatty infiltration of the liver. The liver is otherwise normal. Bones/joints: Unremarkable. No acute fracture. Soft tissues: Unremarkable. CT/CT angio chest PE protcl [id number] IMPRESSION: 1. No acute findings.
--- NOTE | 2024-11-12 09:58 | CTR_ITS ---
PROCEDURE INFORMATION: Exam: CT Head Without Contrast Exam date and time: 11/12/2024 10:43 AM Age: 44 years old Clinical indication: Pain; Headache; Additional info: [place] TECHNIQUE: Imaging protocol: Computed tomography of the head without contrast. Radiation optimization: All CT scans at this facility use at least one of these dose optimization techniques: automated exposure control; mA and/or kV adjustment per patient size (includes targeted exams where dose is matched to clinical indication); or iterative reconstruction. COMPARISON: CT angio headneck* [id number] 12/02/2023 4:44 PM RADIATION DOSE METRICS: Total DLP (mGy-cm): 1074.69 FINDINGS: Brain: Normal. No hemorrhage. Unremarkable white matter. No mass effect. Cerebral ventricles: No ventriculomegaly. Pituitary gland and sella: There is a normal empty pituitary sella. Paranasal sinuses: Visualized sinuses are unremarkable. No fluid levels. Mastoid air cells: Visualized mastoid air cells are well aerated. Bones: Unremarkable. No acute fracture. Soft tissues: Unremarkable. CT/CT head wo con* [id number] IMPRESSION: No large territorial infarct or intracranial bleed.
[2024-11-12 10:06] LABS: Basophils % 0.3 %; Eosinophils # 0.2 10^3/uL (0.0-0.8); Eosinophils % 2.2 %; Hematocrit 44.4 % (36-47); Lymphocytes # 2.2 10^3/uL (0.8-4.8); Mean Corpuscular HGB Conc 31.5 g/dL (30-55); Mean Corpuscular Hemoglobin 27.2 pg (27-33); Mean Corpuscular Volume 86.2 fl (85-98); Mean Platelet Volume 9.4 fL (7.4-10.4); Monocytes # 0.4 10^3/uL (0.2-0.9); Monocytes % 6.2 %; Nucleated Red Blood Cells % 0 %; Platelet Count 398 10^3/cmm (157-399); Red Blood Count 5.15 10^6/uL (3.85-5.65); Red Cell Distribution Width 13.1 % (12.1-15.1); White Blood Count 6.78 10^3/uL (3.29-11.43)
[2024-11-12] MEDS: ondansetron 2 mg/ML SDV 2 mL 4 MG IVP (10:07)
[2024-11-12] MEDS: morphine 4 mg/mL SDV 1 mL IVP (10:07)
[2024-11-12 10:11] LABS: INR 1.68 (0.8-1.2)
[2024-11-12 10:16] LABS: Troponin(5th) Baseline < 6 ng/L (0-10)
[2024-11-12 10:18] LABS: Alanine Aminotransferase 54 U/L (0-33); Albumin Level 4.5 g/dL (3.5-5.2); Alkaline Phosphatase 134 U/L (35-105); Blood Urea Nitrogen 17 mg/dL (6-20); Calcium 9.4 mg/dL (8.5-10.5); Carbon Dioxide 24 mmol/L (22-29); Chloride 98 mmol/L (98-107); Creatinine Clr Calc Pharmacy 144.2154; Globulin 2.5 g/dL (1.3-4.6); Glomerular Filtration Rate 91.8 mL/min (90-130); Glucose 177 mg/dL (65-115); Lipase 25 U/L (13-60); Osmolality Calculated 290 mOsm/kg (285-295); Sodium 137 mmol/L (136-145); Total Bilirubin 0.4 mg/dL (0.15-1.2)
[2024-11-12 10:19] LABS: Aspartate Amino Transferase 33 U/L (0-32)
--- NOTE | 2024-11-12 10:21 | ED_ITS ---
HPI - Chest Pain 2 General: Chief Complaint: Chest Pain Stated Complaint: pain in lft arm, sob Time Seen by Provider: 11/12/24 09:42 Source: patient Mode of arrival: ambulatory Limitations: no limitations History of Present Illness: 44-year-old female who states that she w morena up this morning she is having chest pain. States her pain has been pressure type pain radiates to her arm and jaw and has some arm numbness with shortness of breath as well. Patient is on Coumadin as she has had strokes in the past has factor V Leiden. She states her blood pressure has been extremely high as well as she has not been taking her meds. Associated symptoms: Reports dyspnea; Deny abdominal pain, fever(s), nausea or vomiting Related Data Home Medications Medication Instructions Recorded Confirmed aspirin 81 mg tablet,delayed 81 mg PO QAM 06/16/23 11/12/24 release omeprazole magnesium 20 mg 20 mg PO BID 11/12/24 11/12/24 tablet,delayed release (Prilosec OTC) warfarin 3 mg tablet 3 mg PO DAILY 11/12/24 11/12/24 Previous Rx's Medication Instructions Recorded metoprolol succinate 50 mg 50 mg PO DAILY #30 tabs 11/12/24 tablet,extended release 24 hr Allergies Allergy/AdvReac Type Severity Reaction Status Date / Time codeine Allergy ADR-Vomitin Verified 07/06/24 12:57 g iodine Allergy ALGY-Anaphy Verified 07/06/24 12:57 laxis latex Allergy ALGY-Rash Verified 07/06/24 12:57 shellfish derived Allergy ALGY-Anaphy Verified 07/06/24 12:57 laxis Review of Systems 2 Const: Denies: fever(s), chills, body aches or change in appetite ENMT: Denies: throat pain or dental pain Card: Reports: chest pain Resp: Reports: dyspnea GI: Denies: abdominal pain, nausea, vomiting or diarrhea Musc: Denies: neck pain or back pain Skin/Breast: Denies: rash Neuro: Denies: headache(s) PFSH ED 2 PFSH: Medical History Ischemic stroke Tear of MCL (medial collateral ligament) of knee Hemiplegic migraine with status migrainosus Chronic left arterial ischemic stroke, MCA (middle cerebral artery) Ophthalmoplegic migraine headache Stroke Hypertension Chest pain Surgical History History of repair of ACL Hx of appendectomy Tubal ligation status History of surgical removal of meniscus of knee Family History Other CAD (coronary artery disease) Family history of premature coronary artery disease Social History Smoking and tobacco/nicotine status: former use of tobacco/nicotine Alcohol intake: never Substance/Drug Use: never Household members: spouse Housing: House Physical Exam 2 Const: COMMON NORMALS: patient oriented x3 HENMT: COMMON NORMALS: normocephalic and atraumatic HEAD & SCALP: n ormocephalic and atraumatic Neck/C-Spine: COMMON NORMALS: full ROM and supple Chest: COMMONS NORMALS: normal inspection of the chest Resp: COMMON NORMALS: normal respiratory effort Cardio: COMMON NORMALS: regular rate, regular rhythm and No murmurs present (Cardio) RATE: regular rate RHYTHM: regular rhythm Extremity: COMMON NORMALS: normal to inspection Neuro: COMMON NORMALS: patient oriented x3, moves all extremities and no focal motor deficits Psych: COMMON NORMALS: mental status grossly normal and cooperative Course 2 Vital Signs: Vital signs: Vital Signs Temperature 98.5 F 11/12/24 09:27 Pulse Rate 102 H 11/12/24 12:15 Respiratory Rate 22 H 11/12/24 12:15 Blood Pressure 154/102 11/12/24 11:01 Pulse Oximetry 95 11/12/24 12:15 Oxygen Delivery Me thod Room Air 11/12/24 09:27 MDM - Chest Pain Medical Decision Making Patient presents here with chest pains atypical in nature she is also hypertensive as she has not been taking her meds initial repeat troponin here normal CT angio was normal no signs of acute coronary syndrome she is stable for discharge we will prescribe her metoprolol return if worsening Medical Records I reviewed the patient's medical records. Lab Data I reviewed the patient's lab results. 11/12/24 09:44 11/12/24 09:44 Radiology Impressions Chest CTA 11/12/24 09:58 IMPRESSION: 1. No acute findings. Head CT 11/12/24 09:58 IMPRESSION: No large territorial infarct or intracranial bleed. Laboratory Results WBC 6.78 10^3/uL (3.29-11.43) 11/12/24 09:44 RBC 5.15 10^6/uL (3.85-5.65) 11/12/24 09:44 Hgb 14.00 g/dL (11.27-16.99) 11/12/24 09:44 Hct 44.4 % (36-47) 11/12/24 09:44 MCV 86.2 fl (85-98) 11/12/24 09:44 MCH 27.2 pg (27-33) 11/12/24 09:44 MCHC 31.5 g/dL (30-55) 11/12/24 09:44 RDW 13.1 % (12.1-15.1) 11/12/24 09:44 Plt Count 398 10^3/cmm (157-399) 11/12/24 09:44 MPV 9.4 fL (7.4-10.4) 11/12/24 09:44 Neut % (Auto) 59.0 % 11/12/24 09:44 Lymph % (Auto) 32.0 % 11/12/24 09:44 [place] % (Auto) 6.2 % 11/12/24 09:44 Eos % (Auto) 2.2 % 11/12/24 09:44 Baso % (Auto) 0.3 % 11/12/24 09:44 Neut # (Auto) 4.00 10^3/uL (1.8-7.7) 11/12/24 09:44 Lymph # (Auto) 2.2 10^3/uL (0.8-4.8) 11/12/24 09:44 [place] # (Auto) 0.4 10^3/uL (0.2-0.9) 11/12/24 09:44 Eos # (Auto) 0.2 10^3/uL (0.0-0.8) 11/12/24 09:44 Baso # (Auto) 0.0 10^3/uL (0.0-0.1) 11/12/24 09:44 Nucleated RBC % (auto) 0 % 11/12/24 09:44 Nucleated RBCs # 0.0 /100WBC 11/12/24 09:44 PT 20.80 SECONDS (12.1-14.9) H 11/12/24 09:44 INR 1.68 (0.8-1.2) H 11/12/24 09:44 Sodium 137 mmol/L (136-145) 11/12/24 09:44 Potassium 4.0 mmol/L (3.5-5.1) 11/12/24 09:44 Chloride 98 mmol/L (98-107) 11/12/24 09:44 Carbon Dioxide 24 mmol/L (22-29) 11/12/24 09:44 Anion Gap 19.0 (5-19) 11/12/24 09:44 BUN 17 mg/dL (6-20) 11/12/24 09:44 Creatinine 0.7 mg/dL (0.5-0.9) 11/12/24 09:44 GFR Calculation 91.8 mL/min (90-130) 11/12/24 09:44 Glucose 177 mg/dL (65-115) H 11/12/24 09:44 Calculated Osmolality 290 mOsm/kg (285-295) 11/12/24 09:44 Calcium 9.4 mg/dL (8.5-10.5) 11/12/24 09:44 Total Bilirubin 0.4 mg/dL (0.15-1.2) 11/12/24 09:44 AST 33 U/L (0-32) H 11/12/24 09:44 ALT 54 U/L (0-33) H 11/12/24 09:44 Alkaline Phosphatase 134 U/L (35-105) H 11/12/24 09:44 Troponin T Baseline < 6 ng/L (0-10) 11/12/24 09:44 Troponin T 120 Minute 6.00 ng/L (0-10) 11/12/24 11:47 Delta Troponin T 0.40063 ABS# (0-10) 11/12/24 11:47 Total Protein 7.0 g/dL (6.6-8.7) 11/12/24 09:44 Albumin 4.5 g/dL (3.5-5.2) 11/12/24 09:44 Globulin 2.5 g/dL (1.3-4.6) 11/12/24 09:44 Lipase 25 U/L (13-60) 11/12/24 09:44 All radiology interpretation(s) finalized by discharge EKG Data EKG 1: I personally reviewed and interpreted this EKG as follows: EKG interpretation date: 11/12/24 EKG interpretation time: 09:28 Interpretation: sinus tach hr [address] elevationqrs 91 qtc 404 EKG 2: I personally reviewed and interpreted this EKG as follows: EKG interpretation date: 11/12/24 EKG interpretation time: 12:03 Interpretation: sinus tach hr [address] elevation qrs 90 qtc 394 Clincial Decision Support The following clinical decision support tools were used to aid in care of the patient HEART Score -> History: Slightly Suspicous, EKG: Normal, Age: Less than 45 yrs, Risk Factors: 1 or 2 Risk Factors, Troponin: Baseline Trop <16 ng/L. Resulting HEART Score: 1. Discharge Plan Discharge Patient Disposition: Home Clinical Impression: Chest pain, Hypertension Condition: Stable Prescriptions: New metoprolol succinate 50 mg tablet extended release 24 hr 50 mg PO DAILY Qty: 30 0RF No Action aspirin 81 mg tablet,delayed release (DR/EC) 81 mg PO QAM warfarin 3 mg Tablet 3 mg PO DAILY omeprazole magnesium [Prilosec OTC] 20 mg Tablet,Delayed Release (Dr/Ec) 20 mg PO BID Discharge Orders: Discharge ED (Routine); Ordered 11/12/24 Ordered By: Bhupinder Galindo Referrals: Rob Franco MD [Primary Care Provider] - Discharge Diet: Advance as tolerated Discharge Activity: Resume usual activity Patient Instructions: Chest Pain (ED), Hypertension (ED) Coding Level of Care Code ED General Agent for Chg Stephy
[2024-11-12] MEDS: diphenhydrAMINE 50 mg/mL SDV 1mL IVP (10:38)
[2024-11-12] MEDS: methylPREDNISolone sod succ 40 mg/mL INJ IVP (10:38)
[2024-11-12] MEDS: iohexol 350 mg/mL 500 mL Btl (per mL) IV (10:59)
--- NOTE | 2024-11-12 11:58 | ECG_ITS ---
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
[2024-11-12 12:09] LABS: Troponin 5 2HR Delta 0.00001 ABS# (0-10)
[2024-11-12] MEDS: labetalol 5 mg/mL SDV 20mL 10 MG IVP (12:30)
== END 2024-11-12 12:54 | disposition home or self-care (01) ==
PROVIDERS: Emergency Provider Emergency Medicine; PCP Family Medicine
DX: R07.9 Chest pain, unspecified (principal); I10 Essential (primary) hypertension; Z79.82 Long term (current) use of aspirin; Z79.01 Long term (current) use of anticoagulants; Z87.891 Personal history of nicotine dependence
CPT/HCPCS: 36415; 70450; 71275; 80053; 83690; 84484; 85025; 85610; 93005; 96374; 96375; 99285; J1200; J2270; J2405; J2919; J3490